=== PATIENT | female | born 1965 | race Caucasian/White ===

== ENCOUNTER 2016-12-09 22:37 | Emergency (ER) | payer OTHER ==
[~2016-12-09] VITALS: Ht 160 cm; Wt 107.9 kg
[~2016-12-09 22:37] MED LIST: ATEN50TA PO; CALCIUM; HYD25 PO; LOSA50TA6 PO; OMEP20CA16 PO; [UNRECOGNIZED DRUG - OTHER]; [UNRECOGNIZED DRUG - OTHER] PO
[2016-12-09 22:44] VITALS: Ht 160 cm; Wt 107.9 kg
[2016-12-10] MEDS ORDERED: hydrALAzine 20 MG INJ IV ONE (00:30)
[2016-12-10 00:57] LABS: BASOPHILS % 0.3 % (0.0-2.0); EOSINOPHILS # 0.1 10^3/ul (0.0-0.5); EOSINOPHILS % 0.5 % (0.0-7.0); HEMATOCRIT 41.1 % (37.0-47.0); HEMOGLOBIN 14.3 g/dl (12.0-16.0); LYMPHOCYTES # 3.3 10^3/ul (0.8-2.9); LYMPHOCYTES % 22.3 % (15.0-51.0); MEAN CORPUSCULAR HEMOGLOBIN 30.8 pg (29.0-33.0); MEAN CORPUSCULAR HGB CONC 34.7 g/dl (32.0-37.0); MEAN PLATELET VOLUME 7.3 fl (7.4-10.4); MONOCYTES % 6.5 % (0.0-11.0); NEUTROPHIL # 10.4 10^3/ul (1.6-7.5); NEUTROPHILS % 70.4 % (39.0-77.0); PLATELET COUNT 373 10^3/UL (140-440); RED BLOOD COUNT 4.62 10^6/ul (4.20-5.40); RED CELL DISTRIBUTION WIDTH 13.6 % (11.5-14.5); UNCORRECTED WBC 14.8 10^3/ul (4.8-10.8); WHITE BLOOD COUNT 14.8 10^3/ul (4.8-10.8)
[2016-12-10 00:59] LABS: CONDITION 1
[2016-12-10 01:05] LABS: INR 1.02; PROTIME 13.4 Sec (12.2-14.2)
[2016-12-10 01:06] LABS: ALBUMIN 3.9 g/dl (3.3-4.9); CHLORIDE 100 mmol/L (97-110); PARTIAL THROMBOPLASTIN TIME 26.6 Sec (25.0-35.0); SODIUM 143 mmol/L (135-144)
[2016-12-10 01:07] LABS: POTASSIUM 3.6 mmol/L (3.5-5.1)
[2016-12-10 01:09] LABS: ALANINE AMINOTRANSFERASE 42 IU/L (13-69); ALBUMIN/GLOBULIN RATIO 1.08; ALKALINE PHOSPHATASE 138 IU/L (42-121); ANION GAP 16 (8-16); ASPARTATE AMINO TRANSFERASE 21 IU/L (15-46); BILIRUBIN,INDIRECT 0.3 mg/dl (0-1.1); BILIRUBIN,TOTAL 0.3 mg/dl (0.2-1.3); BLOOD UREA NITROGEN 15 mg/dl (7-20); CARBON DIOXIDE 31 mmol/L (21-31); CREATININE 0.67 mg/dl (0.44-1.00); GLUCOSE 178 mg/dl (70-220); TOTAL PROTEIN 7.5 g/dl (6.1-8.1)
[2016-12-10 01:17] LABS: B-TYPE NATRIURETIC PEPTIDE 56 PG/ML (0-125)
[2016-12-10 01:25] LABS: TROPONIN-I < 0.012 ng/ml (0.00-0.12)
--- NOTE | 2016-12-10 01:35 | RADRPT ---
PROCEDURE: CHEST - 1 VIEW CLINICAL INDICATION: 51-year-old female with chest pain. TECHNIQUE: A single frontal semi-upright view of the chest was performed. The images were reviewe d on a PACS workstation. COMPARISON: Chest x-ray April 24, 2015. FINDINGS: The cardiomediastinal silhouette is prominent but within normal limits without significant interval change. There is mild elevation right hemidiaphragm. There is no evidence for an infiltrate. Ther e is no evidence for congestive heart failure. There is no evidence for pneumothorax. The osseous st ructures are intact. IMPRESSION: No evidence for active cardiopulmonary disease. .Charlie Berg MD, MD Date Time Electronically viewed and signed by .Charlie Berg MD, MD on 12/10/2016 01:35 .Nitin/
--- NOTE | 2016-12-10 01:48 | ERD ---
ER Documentation Chief Complaint Date/Time DATE: 12/10/16 TIME: 01:47 Chief Complaint Pt has been out of BP meds for 2 weeks. C/O MENEZES, dizziness and blurred visio HPI This is a 51-year-old female who has been on a blood pressure meds for 2 weeks patient with a headache dizziness and blurred vision. Denies any focal neurologic complaints. Denies any chest pain. Denies any other current problems. ROS All systems reviewed and are negative except as per history of present illness. Medications Home Meds Reported Medications [Sutrol Vitamin] No Conflict Check 04/24/15 [Lutea] No Conflict Check, 1 CAP PO DAILY 04/24/15 Hydrochlorothiazide* (Hydrochlorothiazide*) 25 Mg Tab, 25 MG PO DAILY, TAB 04/24/15 Atenolol* (Atenolol*) 50 Mg Tablet, 50 MG PO DAILY, TAB 04/24/15 Losartan Potassium* (Losartan Potassium*) 50 Mg Tablet, 50 MG PO DAILY, TAB 04/24/15 Omeprazole* (Omeprazole*) 20 Mg Capsule.dr, 20 MG PO DAILY, CAP 04/24/15 [Calcium] No Conflict Check 04/24/15 Allergies Allergies: Coded Allergies: Penicillins (Verified Allergy, Mild, 04/24/15) ziprasidone (Verified Allergy, Mild, 04/24/15) PMhx/Soc History of Surgery: Yes (TUBAL LIGATION, GALLBLADDER REMOVAL) Anesthesia Reaction: No Hx Neurological Disorder: No Hx Respiratory Disorders: No Hx Cardiac Disorders: Yes (HTN) Hx Psychiatric Problems: No Hx Miscellaneous Medical Probl: No Hx Alcohol Use: No Hx Substance Use: No Hx Tobacco Use: No Smoking Status: Never smoker Physical Exam Vitals Vital Signs Date Time Temp Pulse Resp B/P Pulse Ox O2 Delivery O2 Flow Rate FiO2 12/10/16 01:40 98.6 95 20 168/91 100 Room Air 12/10/16 00:54 118 16 169/96 100 Room Air 3.0 Nasal Cannula 12/10/16 00:54 Nasal Cannula 3 12/10/16 00:19 171/102 12/10/16 00:14 103 20 100 Room Air 12/09/16 22:44 98.2 103 20 191/130 97 Physical Exam Const: [] Head: Atraumatic Eyes: Normal Conjunctiva ENT: Normal External Ears, Nose and Mouth. Neck: Full range of motion..~ No meningismus. Resp: Clear to auscultation bilaterally Cardio: Regular rate and rhythm, no murmurs Abd: Soft, non tender, non distended. Normal bowel sounds Skin: No petechiae or rashes Back: No midline or flank tenderness Ext: No cyanosis, or edema Neur: Awake and alert Psych: Normal Mood and Affect Result Diagram: 12/10/163812/10/169 Results 24 hrs Laboratory Tests Test 12/10/16 00:39 Activated Partial Thromboplast Time 26.6Sec Alanine Aminotransferase (ALT/SGPT) 42IU/L Albumin 3.9g/dl Albumin/Globulin Ratio 1.08 Alkaline Phosphatase 138IU/L Anion Gap 16 Aspartate Amino Transf (AST/SGOT) 21IU/L B-Type Natriuretic Peptide 56PG/ML Basophils # 0.010^3/ul Basophils % 0.3% Blood Morphology Comment Blood Urea Nitrogen 15mg/dl Calcium Level 9.0mg/dl Carbon Dioxide Level 31mmol/L Chloride Level 100mmol/L Creatinine 0.67mg/dl Direct Bilirubin 0.00mg/dl Eosinophils # 0.110^3/ul Eosinophils % 0.5% Globulin 3.60g/dl Glucose Level 178mg/dl Hematocrit 41.1% Hemoglobin 14.3g/dl INR International Normalized Ratio 1.02 Indirect Bilirubin 0.3mg/dl Lymphocytes # 3.310^3/ul Lymphocytes % 22.3% Mean Corpuscular Hemoglobin 30.8pg Mean Corpuscular Hemoglobin Concent 34.7g/dl Mean Corpuscular Volume 89.0fl Mean Platelet Volume 7.3fl Monocytes # 1.010^3/ul Monocytes % 6.5% Neutrophils # 10.410^3/ul Neutrophils % 70.4% Nucleated Red Blood Cells # 0.010^3/ul Nucleated Red Blood Cells % 0.0/100WBC Platelet Count 11773^3/UL Potassium Level 3.6mmol/L Prothrombin Time 13.4Sec Prothrombin Time Ratio 1.0 Red Blood Count 4.6210^6/ul Red Cell Distribution Width 13.6% Sodium Level 143mmol/L Total Bilirubin 0.3mg/dl Total Protein 7.5g/dl Troponin I < 0.012ng/ml White Blood Count 14.810^3/ul Current Medications Medications (Trade) Dose Ordered Sig/Izaiah Route PRN Reason Start Time Stop Time Status Last Admin Dose Admin Hydralazine HCl (Apresoline) 20 mg ONCE ONCE IV 12/10/16 00:30 12/10/16 00:31 DC 12/10/16 00:35 Procedures/MDM EKG: Rate/Rhythm: Normal Sinus Rhythm QRS, ST, T-waves: No changes consistent w/ acute ischemia Impression: No evidence of ischemia or arrhythmia Chest X-ray 1V Interpreted by me: Soft Tissue: No acute abnormalities Bones: No acute abnormalities Mediastinum/Cardiac Silhouette/Lungs: [No acute abnormalities] Medical decision makin-year-old female with hypertensive urgency. No evidence of endorgan damage. Well-appearing. Blood pressure normalized with hydralazine. Patient will be discharged home to follow-up with PCP. Return for return of symptomatology. Departure Diagnosis: Primary Impression: Hypertension Hypertension type: essential hypertension Qualified Code: I10 - Essential hypertension Condition: Stable MANASA ROMEO Dec 10, 2016 01:48
[2016-12-10] MEDS ORDERED: ATEN50TA PO (01:49)
[2016-12-10] MEDS ORDERED: LOSA50TA6 PO (01:49)
[2016-12-10 02:39] VITALS: BP 147/99; PULSE 89; RESP 21; TEMP 98
== END 2016-12-10 02:40 | disposition home or self-care (01) ==
LOC: E/R 22:37
DX: I10 Essential (primary) hypertension (principal); R40.2142 Coma scale, eyes open, spontaneous, at arrival to emergency department; R40.2252 Coma scale, best verbal response, oriented, at arrival to emergency department; R40.2362 Coma scale, best motor response, obeys commands, at arrival to emergency department
CPT/HCPCS: 36415; 71010; 80053; 83880; 84484; 85025; 85610; 85730; 93005; 96374; J0360; Z7502

== ENCOUNTER 2017-01-15 16:02 | Emergency (ER) | payer SELFPAY ==
[~2017-01-15] VITALS: Ht 157.5 cm; Wt 89.5 kg
[2017-01-15 16:16] VITALS: Ht 157.5 cm; Wt 89.5 kg
== END 2017-01-15 21:50 | disposition left against medical advice (07) ==
LOC: E/R 16:02
DX: Z53.21 Procedure and treatment not carried out due to patient leaving prior to being seen by health care provider (principal)

== ENCOUNTER 2017-07-07 00:19 | Emergency (ER) | payer OTHER ==
[~2017-07-07] VITALS: Ht 147.3 cm; Wt 104.5 kg
[2017-07-07 00:26] VITALS: Ht 147.3 cm; Wt 104.5 kg
[2017-07-07] MEDS ORDERED: morphine 4 MG/ML VIAL IV STA (00:59)
[2017-07-07] MEDS ORDERED: ONDANSETRON 4 MG INJ IV STA (00:59)
[2017-07-07] MEDS ORDERED: hydrALAzine 20 MG INJ IV ONE (01:00)
[2017-07-07 01:30] VITALS: BP 212/119; PULSE 68; RESP 17
[2017-07-07 02:05] LABS: BASOPHIL # 0.1 10^3/ul (0.0-0.1); BASOPHILS % 0.5 % (0.0-2.0); EOSINOPHILS # 0.1 10^3/ul (0.0-0.5); EOSINOPHILS % 1.1 % (0.0-7.0); HEMATOCRIT 40.3 % (37.0-47.0); HEMOGLOBIN 13.8 g/dl (12.0-16.0); LYMPHOCYTES # 2.7 10^3/ul (0.8-2.9); LYMPHOCYTES % 21.4 % (15.0-51.0); MEAN CORPUSCULAR HGB CONC 34.2 g/dl (32.0-37.0); MEAN CORPUSCULAR VOLUME 87.6 fl (82.0-101.0); MEAN PLATELET VOLUME 9.3 fl (7.4-10.4); MONOCYTE # 0.6 10^3/ul (0.3-0.9); MONOCYTES % 4.4 % (0.0-11.0); NEUTROPHILS % 72.2 % (39.0-77.0); PLATELET COUNT 323 10^3/UL (140-415); RED CELL DISTRIBUTION WIDTH 13.2 % (11.5-14.5); WHITE BLOOD COUNT 12.7 10^3/ul (4.8-10.8)
[2017-07-07 02:22] LABS: ADD UMIC NO; UR ASCORBIC ACID NEGATIVE (NEGATIVE); UR BILIRUBIN (Dip) NEGATIVE (NEGATIVE); UR BLOOD (Dip) NEGATIVE (NEGATIVE); UR CLARITY CLEAR (CLEAR); UR COLOR YELLOW (YELLOW); UR GLUCOSE (Dip) NEGATIVE (NEGATIVE); UR KETONES (Dip) NEGATIVE (NEGATIVE); UR LEUKOCYTE ESTERASE (Dip) NEGATIVE Leu/ul (NEGATIVE); UR NITRITE (Dip) NEGATIVE (NEGATIVE); UR SPECIFIC GRAVITY (Dip) 1.014 (1.003-1.030); UR TOTAL PROTEIN (Dip) NEGATIVE (NEGATIVE); UR UROBILINOGEN (Dip) NEGATIVE (NEGATIVE)
[2017-07-07 02:23] LABS: ALANINE AMINOTRANSFERASE 35 IU/L (13-69); ALBUMIN 3.8 g/dl (3.3-4.9); ALBUMIN/GLOBULIN RATIO 1.05; ALKALINE PHOSPHATASE 114 IU/L (42-121); ANION GAP 13 (8-16); ASPARTATE AMINO TRANSFERASE 20 IU/L (15-46); BILIRUBIN,INDIRECT 0.4 mg/dl (0-1.1); BILIRUBIN,TOTAL 0.4 mg/dl (0.2-1.3); BLOOD UREA NITROGEN 17 mg/dl (7-20); CALCIUM 8.8 mg/dl (8.4-10.2); CARBON DIOXIDE 27 mmol/L (21-31); CHLORIDE 106 mmol/L (97-110); CREATININE 0.79 mg/dl (0.44-1.00); GLUCOSE 161 mg/dl (70-220); POTASSIUM 3.7 mmol/L (3.5-5.1); SODIUM 142 mmol/L (135-144); TOTAL PROTEIN 7.4 g/dl (6.1-8.1)
[2017-07-07 02:30] LABS: INR 0.94; PROTIME 12.6 Sec (12.2-14.2)
[2017-07-07 02:35] LABS: TROPONIN-I < 0.012 ng/ml (0.00-0.12)
--- NOTE | 2017-07-07 02:43 | RADRPT ---
PROCEDURE: CT abdomen and pelvis without intravenous contrast. CLINICAL INDICATION: Pain. TECHNIQUE: CT of the abdomen/pelvis was performed utilizing axial images with reconstructions in s agittal and coronal planes. The administered radiation dose is CTDI 23.5 mGy, DLP 1348 mGy-cm. One o r more of the following dose reduction techniques were used: automated exposure control, adjustment of the mA and/or kV according to patient size and/or use of iterative reconstruction technique. COMPARISON: 02/16/2015 FINDINGS: Visualized Chest: The visualized lung bases are clear. Abdomen: The spleen, pancreas, and adrenal glands are unremarkable. The liver is markedly, diffusely decre ased in attenuation, compatible with hepatic steatosis. Prior cholecystectomy is noted. The kidneys are without hydronephrosis. No definite urinary calculi are seen. There is no evidence of bowel obstruction. The appendix is normal. No intra-abdominal free air is seen. There is a small, omentum containing periumbilical hernia. There is no evidence of intra-abdominal adenopathy or free fluid. Pelvis: There is no evidence of pelvic adenopathy. The uterus and ovaries are without enlargement. The uri nary bladder is unremarkable. There is no pelvic free fluid. Osseous structures: Unremarkable. IMPRESSION: No acute findings. Marked hepatic steatosis. Small, omentum containing periumbilical hernia. RPTAT: HIKT .Arpit Chang MD, Date Time Electronically viewed and signed by .Arpit Chang MD, on 07/07/2017 02:43 .T/
--- NOTE | 2017-07-07 02:45 | RADRPT ---
PROCEDURE: XR Chest. CLINICAL INDICATION: Abdominal pain TECHNIQUE: AP Portable chest. COMPARISON: 12/10/2016 FINDINGS: The cardiomediastinal silhouette is normal. The lungs are clear. The osseous structures are unrema rkable. Assuming this is an upright view, there is no free air under the diaphragm. IMPRESSION: No acute findings. RPTAT: HIKT .Arpit Chang MD, MD Date Time Electronically viewed and signed by .Arpit Chang MD, MD on 07/07/2017 02:45 .T/
[2017-07-07] MEDS ORDERED: HYDROmorphONE 1 MG/ML SYG IV STA (03:52)
--- NOTE | 2017-07-07 04:29 | ERD ---
ER Documentation Chief Complaint Date/Time DATE: 07/07/17 TIME: 04:28 Chief Complaint R sided AP x6hrs; no relief w ibuprofen. Denies NVD, no fever. HPI 59 for right-sided abdominal pain for 6 hours. Pain is mild to moderate intensity. No relief with ibuprofen at home. No fever. No nausea no vomiting or diarrhea. No other current complaints. Pain mild to moderate in intensity with no exacerbating or alleviating factors. ROS All systems reviewed and are negative except as per history of present illness. Medications Home Meds Active Scripts Atenolol* (Atenolol*) 50 Mg Tablet, 50 MG PO DAILY for 30 Days, #30 TAB Prov:MANASA ROMEO. 12/10/16 Losartan Potassium* (Losartan Potassium*) 50 Mg Tablet, 50 MG PO DAILY for 30 Days, #30 TAB Prov:MANASA ROMEO S. 12/10/16 Reported Medications [Sutrol Vitamin] No Conflict Check 04/24/15 [Lutea] No Conflict Check, 1 CAP PO DAILY 04/24/15 Hydrochlorothiazide* (Hydrochlorothiazide*) 25 Mg Tab, 25 MG PO DAILY, TAB 04/24/15 Omeprazole* (Omeprazole*) 20 Mg Capsule.dr, 20 MG PO DAILY, CAP 04/24/15 [Calcium] No Conflict Check 04/24/15 Allergies Allergies: Coded Allergies: Penicillins (Verified Allergy, Mild, 04/24/15) ziprasidone (Verified Allergy, Mild, 04/24/15) PMhx/Soc History of Surgery: Yes (TUBAL LIGATION, GALLSTONES REMOVAL) Anesthesia Reaction: No Hx Neurological Disorder: No Hx Respiratory Disorders: No Hx Cardiac Disorders: Yes (HTN) Hx Psychiatric Problems: No Hx Miscellaneous Medical Probl: No Hx Alcohol Use: No Hx Substance Use: No Hx Tobacco Use: No Smoking Status: Never smoker Physical Exam Vitals Vital Signs Date Time Temp Pulse Resp B/P Pulse Ox O2 Delivery O2 Flow Rate FiO2 07/07/17 01:30 68 17 212/119 100 Room Air 07/07/17 00:26 98.1 63 22 229/112 98 Physical Exam Const: [] Head: Atraumatic Eyes: Normal Conjunctiva ENT: Normal External Ears, Nose and Mouth. Neck: Full range of motion..~ No meningismus. Resp: Clear to auscultation bilaterally Cardio: Regular rate and rhythm, no murmurs Abd: Soft, non tender, non distended. Normal bowel sounds Skin: No petechiae or rashes Back: No midline or flank tenderness Ext: No cyanosis, or edema Neur: Awake and alert Psych: Normal Mood and Affect Result Diagram: 07/07/17 0144 07/07/17 0144 Results 24 hrs Laboratory Tests Test 07/07/17 01:25 07/07/17 01:44 Urine Color YELLOW Urine Clarity CLEAR Urine pH 7.0 Urine Specific [place] 1.014 Urine Ketones NEGATIVEmg/dL Urine Nitrite NEGATIVEmg/dL Urine Bilirubin NEGATIVEmg/dL Urine Urobilinogen NEGATIVEmg/dL Urine Leukocyte Esterase NEGATIVELeu/ul Urine Hemoglobin NEGATIVEmg/dL Urine Glucose NEGATIVEmg/dL Urine Total Protein NEGATIVEmg/dl White Blood Count 12.710^3/ul Red Blood Count 4.6010^6/ul Hemoglobin 13.8g/dl Hematocrit 40.3% Mean Corpuscular Volume 87.6fl Mean Corpuscular Hemoglobin 30.0pg Mean Corpuscular Hemoglobin Concent 34.2g/dl Red Cell Distribution Width 13.2% Platelet Count 60385^3/UL Mean Platelet Volume 9.3fl Neutrophils % 72.2% Lymphocytes % 21.4% Monocytes % 4.4% Eosinophils % 1.1% Basophils % 0.5% Nucleated Red Blood Cells % 0.0/100WBC Neutrophils # (Manual) 9.210^3/ul Lymphocytes # 2.710^3/ul Monocytes # 0.610^3/ul Eosinophils # 0.110^3/ul Basophils # 0.110^3/ul Nucleated Red Blood Cells # 0.010^3/ul Prothrombin Time 12.6Sec Prothrombin Time Ratio 1.0 INR International Normalized Ratio 0.94 Activated Partial Thromboplast Time 28.0Sec Sodium Level 142mmol/L Potassium Level 3.7mmol/L Chloride Level 106mmol/L Carbon Dioxide Level 27mmol/L Anion Gap 13 Blood Urea Nitrogen 17mg/dl Creatinine 0.79mg/dl Glucose Level 161mg/dl Calcium Level 8.8mg/dl Total Bilirubin 0.4mg/dl Direct Bilirubin 0.00mg/dl Indirect Bilirubin 0.4mg/dl Aspartate Amino Transf (AST/SGOT) 20IU/L Alanine Aminotransferase (ALT/SGPT) 35IU/L Alkaline Phosphatase 114IU/L Troponin I < 0.012ng/ml Total Protein 7.4g/dl Albumin 3.8g/dl Globulin 3.60g/dl Albumin/Globulin Ratio 1.05 Lipase 129U/L Current Medications Medications (Trade) Dose Ordered Sig/Izaiah Route PRN Reason Start Time Stop Time Status Last Admin Dose Admin Morphine Sulfate (morphine) 4 mg ONCE STAT IV 07/07/17 00:59 07/07/17 01:00 DC 07/07/17 01:56 Ondansetron HCl (Zofran Inj) 4 mg ONCE STAT IV 07/07/17 00:59 07/07/17 01:00 DC 07/07/17 01:56 Hydralazine HCl (Apresoline) 10 mg ONCE ONCE IV 07/07/17 01:00 07/07/17 01:01 DC 07/07/17 01:56 Hydromorphone HCl (Dilaudid) 1 mg ONCE STAT IV 07/07/17 03:52 07/07/17 03:53 DC 07/07/17 04:12 Procedures/MDM Medical decision-makin year female abdominal pain nonspecific and non- differentiated etiology. At this point clinically stable for outpatient management. Pain resolved. Patient be discharged home. Follow-up in 8 hours for serial abdominal exams. Departure Diagnosis: Primary Impression: Abdominal pain Abdominal location: generalized Qualified Code: R10.84 - Generalized abdominal pain Condition: Stable MANASA ROMEO Jul 07, 2017 04:29
[2017-07-07] MEDS ORDERED: SUCR1TAB56 PO (04:36)
[2017-07-07] MEDS ORDERED: HYDR-902 PO (04:36)
== END 2017-07-07 05:51 | disposition home or self-care (01) ==
LOC: E/R 00:19
DX: R10.84 Generalized abdominal pain (principal); R40.2252 Coma scale, best verbal response, oriented, at arrival to emergency department; I10 Essential (primary) hypertension; R40.2142 Coma scale, eyes open, spontaneous, at arrival to emergency department; R40.2362 Coma scale, best motor response, obeys commands, at arrival to emergency department
CPT/HCPCS: 71010; 74176; 80053; 81003; 83690; 84484; 85025; 85610; 85730; 87086; 93005; 96374; 96375; J0360; J1170; J2270; J2405; Z7502

== ENCOUNTER 2019-04-16 17:17 | Inpatient (IN) | payer OTHER ==
[~2019-04-16] VITALS: Ht 152.4 cm; Wt 95.4 kg
[~2019-04-16 17:17] MED LIST changes: -HYD25 PO; +HYDR-3980 PO; +HYDR25TA6 PO; +LOSA50TA14 PO; -LOSA50TA6 PO; +SUCR1TAB56 PO
[2019-04-16] MEDS ORDERED: morphine 4 MG/ML VIAL IV STA ×2 (18:45→22:26)
[2019-04-16] MEDS ORDERED: ONDANSETRON 4 MG INJ IV STA (18:45)
[2019-04-16] MEDS ORDERED: SOD CHLORIDE 0.9% 1,000 ML IV STA (19:43)
[2019-04-16] MEDS ORDERED: INSULIN ASPART [NOVOLOG] 3 ML PEN SC ONE (20:00)
[2019-04-16] MEDS ORDERED: ACCU-CHEK XX ONE (20:00)
[2019-04-16] MEDS ORDERED: AZTREONAM 1 GM/NS (PMX) 50 ML IVPB STA (20:14)
[2019-04-16] MEDS ORDERED: SODIUM CHLORIDE 0.9% 1L BAG IV* STA (20:14)
[2019-04-16] MEDS ORDERED: VANCOMYCIN 1 GM (PMX) 250 ML IVPB STA (20:14)
--- NOTE | 2019-04-16 21:07 | ERD ---
ER Documentation Chief Complaint Chief Complaint AP X3 WEEKS, VOMITED THIS MORNING. STARTED NEW RX YESTERDAY. HPI Patient is a 53-year-old female with hypertension who presents with abdominal pain. She has diffuse abdominal pain which started 3 weeks ago. It initially started in the right upper quadrant but now it is diffuse. She tried ibuprofen for pain. She has no fevers but does have vomiting. Upon review of old medical records the patient has had 10 visits to the ER since 2009. She does not know the name of her primary doctor. ROS All systems reviewed and are negative except as per history of present illness. Medications Home Meds Active Scripts Hydrocodone/Acetaminophen (Lester 10-325 Tablet) 1 Each Tablet, 1 TAB PO Q6H PRN for PAIN, #20 TAB Prov:MANASA ROMEO 07/07/17 Sucralfate* (Carafate*) 1 Gm Tab, 1 GM PO QID, #20 TAB Prov:MANASA ROMEO 07/07/17 Atenolol* (Atenolol*) 50 Mg Tablet, 50 MG PO DAILY for 30 Days, #30 TAB Prov:MANASA ROMEO 12/10/16 Losartan Potassium* (Losartan Potassium*) 50 Mg Tablet, 50 MG PO DAILY for 30 Days, #30 TAB Prov:MANASA ROMEO 12/10/16 Reported Medications [Sutrol Vitamin] No Conflict Check 04/24/15 [Lutea] No Conflict Check, 1 CAP PO DAILY 04/24/15 Hydrochlorothiazide* (Hydrochlorothiazide*) 25 Mg Tab, 25 MG PO DAILY, TAB 04/24/15 Omeprazole* (Omeprazole*) 20 Mg Capsule.dr, 20 MG PO DAILY, CAP 04/24/15 [Calcium] No Conflict Check 04/24/15 Allergies Allergies: Coded Allergies: Penicillins (Verified Allergy, Mild, 04/24/15) ziprasidone (Verified Allergy, Mild, 04/24/15) PMhx/Soc History of Surgery: Yes (TUBAL LIGATION, GALLSTONES REMOVAL) Anesthesia Reaction: No Hx Neurological Disorder: No Hx Respiratory Disorders: No Hx Cardiac Disorders: Yes (HTN) Hx Psychiatric Problems: No Hx Miscellaneous Medical Probl: No Hx Alcohol Use: No Hx Substance Use: No Hx Tobacco Use: No FmHx Family History: diabetes Physical Exam Vitals Vital Signs Date p Pulse Resp B/P (MAP) Pulse Ox O2 O2 Flow FiO2 Time Delivery Rate 04/16/19 98.3 90 16 107/104 97 17:21 (105) Physical Exam Const: Moderate distress Head: Atraumatic Eyes: Normal Conjunctiva ENT: Normal External Ears, Nose and Mouth. Neck: Full range of motion. No meningismus. Resp: Clear to auscultation bilaterally Cardio: Regular rate and rhythm, no murmurs Abd: Diffuse tenderness to palpation without rebound or guarding Skin: Jaundice Back: No midline or flank tenderness Ext: No cyanosis, or edema Neur: Awake and alert Psych: Normal Mood and Affect Result Diagram: 04/16/19190304/16/191903 Results 24 hrs Laboratory Tests Test 04/16/19 19:04 04/16/19 19:58 04/16/19 20:14 04/16/19 20:39 White Blood Count 22.3 10^3/ul Red Blood Count 5.01 10^6/ul Hemoglobin 15.2 g/dl Hematocrit 44.7 % Mean Corpuscular 89.2 fl Volume Mean Corpuscular 30.3 pg Hemoglobin Mean Corpuscular 34.0 g/dl Hemoglobin Concent Red Cell 14.3 % Distribution Width Platelet Count 321 10^3/UL Mean Platelet 9.6 fl Volume Immature 0.700 % Granulocytes % Neutrophils % 92.0 % Lymphocytes % 2.4 % Monocytes % 4.7 % Eosinophils % 0.0 % Basophils % 0.2 % Nucleated Red 0.0 /100WBC Blood Cells % Immature 0.160 10^3/ul Granulocytes # Neutrophils # 20.5 10^3/ul Lymphocytes # 0.5 10^3/ul Monocytes # 1.0 10^3/ul Eosinophils # 0.0 10^3/ul Basophils # 0.1 10^3/ul Nucleated Red 0.0 10^3/ul Blood Cells # Urine Color ANA MARIA Urine Clarity CLEAR Urine pH 5.0 Urine Specific 1.024 [place] Urine Ketones 1+ mg/dL Urine Nitrite NEGATIVE mg/dL Urine Bilirubin NEGATIVE mg/dL Urine Urobilinogen 1+ mg/dL Urine Leukocyte NEGATIVE Ming/ul Esterase Urine Hemoglobin NEGATIVE mg/dL Urine Glucose 3+ mg/dL Urine Total NEGATIVE mg/dl Protein Sodium Level 134 mmol/L Potassium Level 4.2 mmol/L Chloride Level 95 mmol/L Carbon Dioxide 20 mmol/L Level Anion Gap 19 Blood Urea 17 mg/dl Nitrogen Creatinine 0.86 mg/dl Est Glomerular > 60 mL/min Filtrat Rate mL/min Glucose Level 573 mg/dl Calcium Level 9.5 mg/dl Total Bilirubin 7.8 mg/dl Direct Bilirubin 6.40 mg/dl Indirect Bilirubin 1.4 mg/dl Aspartate Amino 711 IU/L Transf (AST/SGOT) Alanine 973 IU/L Aminotransferase ( ALT/SGPT) Alkaline 818 IU/L Phosphatase Total Protein 8.2 g/dl Albumin 4.4 g/dl Globulin 3.80 g/dl Albumin/Globulin 1.15 Ratio Lipase 28503 U/L Lactate 1560 IU/L Dehydrogenase Bedside Glucose 471 mg/dL POC Venous Lactate 1.1 mmol/L Current Medications Medications Dose Sig/Izaiah Start Time Status Last (Trade) Ordered Route PRN Stop Time Admin Dose Reason Admin Morphine 4 mg ONCE STAT 04/16/19 DC 04/16/19 Sulfate IV 18:45 19:03 (morphine) 04/16/19 18:47 Ondansetron 4 mg ONCE STAT 04/16/19 DC 04/16/19 HCl (Zofran IV 18:45 19:03 Inj) 04/16/19 18:47 Insulin 20 unit ONCE ONCE 04/16/19 DC 04/16/19 Aspart SC 20:00 20:18 (Novolog 04/16/19 20:01 Insulin Pen) Diagnostic 1 ea 2 HRS AFTER 04/16/19 DC Test (Pha) HUMALOG ONCE 20:00 (Accu-Chek) XX 04/16/19 20:01 Sodium 1,000 ml @ Q1H STAT 04/16/19 DC 04/16/19 Chloride 1,000 mls/hr IV 19:43 19:57 04/16/19 20:42 Sodium 1,640 ml BOLUS OVER 2 04/16/19 DC 04/16/19 Chloride HOURS STAT 20:14 20:49 (NS) IV* 04/16/19 20:30 Vancomycin 250 ml @ ONCE STAT 04/16/19 HCl 125 mls/hr IVPB 20:14 04/16/19 22:13 Aztreonam 50 ml @ ONCE STAT 04/16/19 DC 04/16/19 100 mls/hr IVPB 20:14 20:48 04/16/19 20:43 Procedures/MDM CT abdomen and pelvis pending radiology read at this time. Patient is a 53-year-old female who presents with abdominal pain and jaundice. She was found to have severe pancreatitis with a lipase of greater than 20,000. Her LFTs are elevated as well. White count is greater than 20. Her initial Kaylin score is 4 giving her a 15% predicted mortality. She has new onset diabetes with a high sugar but no diabetic ketoacidosis at this time. She will be admitted to the intensive care unit to the care of Dr. Tran. Blood cultures and lactic acid were drawn. Initial lactic acid was normal. Broad-spectrum antibiotics with vancomycin and aztreonam were given. At this point I doubt sepsis. Critical Care: Time: 35 minutes excluding all billable procedures. Treatments/Evaluations: Close monitoring and treatment of unstable vital signs, cardiorespiratory, and neurologic status, while maintaining tight balance of fluid, respiratory, and cardiac interventions. Kaylin's Criteria for Pancreatitis Mortality from [employer] on 04/16/2019 All calculations should be rechecked by clinician prior to use RESULT SUMMARY: 4 points Ransons Criteria (On Admission) Severe pancreatitis likely. Consider ICU admission. 4 points Ransons Criteria (Cumulative) 15% predicted mortality. INPUTS: WBC > 16k > 1 = Yes Age > 55 > 0 = No Glucose >200 mg/dL (>10 mmol/L) > 1 = Yes AST > 250 > 1 = Yes LDH > 350 > 1 = Yes Hct drop >10% from admission > 0 = No BUN increase >5 mg/dL (>1.79 mmol/L) from admission > 0 = No Ca > 0 = No Arterial pO2 > 0 = No Base deficit (24 - HCO3) >4 mg/dL within 48 hours > 0 = No Fluid needs > 6L within 48 hours > 0 = No Departure Diagnosis: Primary Impression: Pancreatitis Chronicity: acute Pancreatitis type: unspecified pancreatitis type Acute pancreatitis complication: unspecified Qualified Codes: K85.90 - Acute pancreatitis without necrosis or infection, unspecified Additional Impressions: Elevated liver function tests Cholangitis Abdominal pain Abdominal location: generalized Qualified Codes: R10.84 - Generalized abdominal pain Diabetes mellitus, new onset Condition: Critical LESLIE WEST MD Apr 16, 2019 21:07
[2019-04-16] MEDS ORDERED: ACETAMINOPHEN 650 MG SUPP PR PRN (21:30)
[2019-04-16] MEDS ORDERED: ALBUTEROL/IPRATROPIUM (NEB) 3 ML AMP NEB PRN (21:30)
[2019-04-16] MEDS: ACCU-CHEK XX SCH ×3 (21:30→23:32)
[2019-04-16] MEDS ORDERED: DEXTROSE 50% 50 ML SYRINGE IV PRN ×2 (21:30)
[2019-04-16] MEDS: SOD CHLORIDE 0.9% 1,000 ML IV SCH (22:33)
[2019-04-16] MEDS: INSULIN HUMAN REGULAR 100 UNIT in SOD CHLORIDE 0.9% 99 ML IV SCH (22:56)
[2019-04-16] MEDS ORDERED: CHOL200073 PO (23:20)
[2019-04-16] MEDS ORDERED: IBUP-1542 PO (23:20)
[2019-04-17] VITALS (42 sets, daily range): BP systolic 123–176; BP diastolic 78–120; PULSE 89–114; RESP 10–25; BMI 38.8
[2019-04-17] MEDS: ACCU-CHEK XX SCH ×24 (00:30→23:00)
[2019-04-17] MEDS ORDERED: VANCOMYCIN IV PER PHARMACY XX SCH (02:00)
[2019-04-17] MEDS ORDERED: METOPROLOL 25 MG TAB PO ONE (02:00)
[2019-04-17] MEDS: HYDROmorphONE 1 MG/ML SYG IV PRN ×2 (04:52→10:27)
[2019-04-17] MEDS: SOD CHLORIDE 0.9% 1,000 ML IV SCH ×3 (05:16→16:07)
[2019-04-17] MEDS ORDERED: PANTOPRAZOLE 40 MG INJ IV SCH (06:00)
--- NOTE | 2019-04-17 06:05 | HP ---
Date/Time of Note Date/Time of Note DATE: 04/17/19 TIME: 05:57 Assessment/Plan VTE Prophylaxis Pharmacological prophylaxis: heparin Lines/Catheters IV Catheter Type (from Nrs): Mid Line Assessment/Plan Assessment/Plan 53-year-old female with a history of hypertension and a laparoscopic cholecystectomy in 2014 presented with 3 weeks history of right upper quadrant abdominal pain, vomiting and jaundice secondary to pancreatitis and likely choledocholithiasis and possible cholangitis 1. Severe pancreatitis with likely choledocholithiasis and cholangitis -Broad-spectrum IV antibiotic -IV fluid -Abdominal MRI for further evaluation -GI consult -Hep panel -Autoimmune etiology is also a consideration here. Steroid will be considered for clinical course. Note however that the patient has been taking steroid for " allergy" for the past few days. -Patient had a blood test about a week ago at a clinic. Once patient find out the name and telephone number, will request results of the blood tests for the purpose of comparison 2. Sepsis: Secondary to above -Broad-spectrum IV antibiotic, IV fluid -Follow-up culture results 3. Hyperglycemia -Check A1c -Insulin drip 4. Hypertension: PRN antihypertensives for now Result Diagram: 04/17/19 0429 04/17/19 0049 Results 24hrs Laboratory Tests Test 04/16/19 19:04 04/16/19 19:58 04/16/19 20:14 04/16/19 20:39 White Blood Count 22.3 #H Red Blood Count 5.01 Hemoglobin 15.2 Hematocrit 44.7 Mean Corpuscular 89.2 Volume Mean Corpuscular 30.3 Hemoglobin Mean Corpuscular 34.0 Hemoglobin Concent Red Cell 14.3 Distribution Width Platelet Count 321 Mean Platelet Volume 9.6 Immature 0.700 H Granulocytes % Neutrophils % 92.0 H Lymphocytes % 2.4 L Monocytes % 4.7 Eosinophils % 0.0 Basophils % 0.2 Nucleated Red Blood 0.0 Cells % Immature 0.160 H Granulocytes # Neutrophils # 20.5 H Lymphocytes # 0.5 L Monocytes # 1.0 H Eosinophils # 0.0 Basophils # 0.1 Nucleated Red Blood 0.0 Cells # Urine Color ANA MARIA Urine Clarity CLEAR Urine pH 5.0 Urine Specific 1.024 [place] Urine Ketones 1+ H Urine Nitrite NEGATIVE Urine Bilirubin NEGATIVE Urine Urobilinogen 1+ H Urine Leukocyte NEGATIVE Esterase Urine Hemoglobin NEGATIVE Urine Glucose 3+ H Urine Total Protein NEGATIVE Sodium Level 134 L Potassium Level 4.2 Chloride Level 95 L Carbon Dioxide Level 20 L Anion Gap 19 H Blood Urea Nitrogen 17 Creatinine 0.86 Est Glomerular > 60 Filtrat Rate mL/min Glucose Level 573 *H Calcium Level 9.5 Total Bilirubin 7.8 H Direct Bilirubin 6.40 H Indirect Bilirubin 1.4 H Aspartate Amino 711 H Transf (AST/SGOT) Alanine 973 H Aminotransferase (AL T/SGPT) Alkaline Phosphatase 818 H Total Protein 8.2 H Albumin 4.4 Globulin 3.80 H Albumin/Globulin 1.15 Ratio Lipase 34205 H Lactate 1560 H Dehydrogenase Bedside Glucose 471 *H POC Venous Lactate 1.1 Test 04/16/19 21:39 04/16/19 22:30 04/16/19 22:34 04/16/19 23:31 Bedside Glucose 432 *H 452 *H 366 H Lactic Acid Level 1.8 Test 04/17/19 00:37 04/17/19 00:49 04/17/19 01:42 04/17/19 02:29 Bedside Glucose 335 H 315 H 331 H White Blood Count 21.7 H Red Blood Count 4.57 Hemoglobin 14.1 Hematocrit 40.5 Mean Corpuscular 88.6 Volume Mean Corpuscular 30.9 Hemoglobin Mean Corpuscular 34.8 Hemoglobin Concent Red Cell 14.5 Distribution Width Platelet Count 285 Mean Platelet Volume 9.4 Immature 0.600 H Granulocytes % Neutrophils % 89.6 H Lymphocytes % 4.6 L Monocytes % 5.0 Eosinophils % 0.0 Basophils % 0.2 Nucleated Red Blood 0.0 Cells % Immature 0.120 H Granulocytes # Neutrophils # 19.4 H Lymphocytes # 1.0 Monocytes # 1.1 H Eosinophils # 0.0 Basophils # 0.1 Nucleated Red Blood 0.0 Cells # Sodium Level 141 Potassium Level 3.7 Chloride Level 104 Carbon Dioxide Level 20 L Anion Gap 17 H Blood Urea Nitrogen 15 Creatinine 0.68 Est Glomerular > 60 Filtrat Rate mL/min Glucose Level 382 #H Lactic Acid Level 2.2 *H Calcium Level 8.3 L Total Bilirubin 7.7 H Direct Bilirubin 6.40 H Indirect Bilirubin 1.3 H Aspartate Amino 722 H Transf (AST/SGOT) Alanine 883 H Aminotransferase (AL T/SGPT) Alkaline Phosphatase 759 H Total Protein 7.1 # Albumin 3.7 Globulin 3.40 H Albumin/Globulin 1.08 Ratio Test 04/17/19 02:33 04/17/19 03:28 04/17/19 03:30 04/17/19 04:29 Bedside Glucose 320 H 371 H 344 H White Blood Count 23.6 H Red Blood Count 4.38 Hemoglobin 13.4 Hematocrit 38.8 Mean Corpuscular 88.6 Volume Mean Corpuscular 30.6 Hemoglobin Mean Corpuscular 34.5 Hemoglobin Concent Red Cell 14.7 H Distribution Width Platelet Count 289 Mean Platelet Volume 9.6 Immature 0.800 H Granulocytes % Neutrophils % 90.1 H Lymphocytes % 4.2 L Monocytes % 4.8 Eosinophils % 0.0 Basophils % 0.1 Nucleated Red Blood 0.0 Cells % Immature 0.190 H Granulocytes # Neutrophils # 21.3 H Lymphocytes # 1.0 Monocytes # 1.1 H Eosinophils # 0.0 Basophils # 0.0 Nucleated Red Blood 0.0 Cells # Prothrombin Time 13.1 Prothrombin Time 1.0 Ratio INR International 0.98 Normalized Ratio Activated 27.1 Partial Thromboplast Time Hemoglobin A1c 8.8 H Test 04/17/19 04:36 04/17/19 05:41 Bedside Glucose 312 H 302 H HPI/ROS Admit Date/Time Admit Date/Time Apr 16, 2019 at 20:18 Hx of Present Illness This is a 53-year-old female with a history of hypertension, allergy and laparoscopic cholecystectomy in 2014 who presented to the ER complaining of abdominal pain. Pain is been going on for the past 3 weeks or so. She also reported nonbloody nonbilious vomiting and jaundice. Denied shortness of breath, chest pain, but reported fever/chills. Patient actually so Dr. rhoades ago for her " for allergy" and was started on oral steroid. She said her allergy is usually related to skin rash. She said she did not tell the doctor about her abdominal pain at that time. She did however had blood tests and is awaiting the results. When she presented to the ER, she was found to have a WBC of 22,000, abnormal LFTs with AST and ALT in the 800s and 900s respectively. Alk phos around 800, total bilirubin 7.8 with direct bilirubin of 6.4. Lipase around 20,000. Glucose almost 600 with no DKA. Lactic dehydrogenase almost 1600. CT abdomen/pelvis shows the followin. Severe pancreatitis with interval enlargement of the pancreatic gland and extensive peripancreatic fat stranding, with stranding extending into the proximal mesentery. 2. Hepatomegaly with fatty infiltration. 3. Postoperative changes from prior cholecystectomy with the extrahepatic common bile duct within normal limits status post cholecystectomy PMH/Family/Social Past Medical History Medical History: other (see hpi) Medications Current Medications Sodium Chloride 1,000 ml @ 125 mls/hr Q8H IV Last administered on 04/16/19at 22:33; Admin Dose 125 MLS/HR; Start 04/16/19 at 21:16 Albuterol/ Ipratropium (Duoneb) 3 ml Q2H RESP THERAPY PRN NEB SHORTNESS OF BREATH; Start 04/16/19 at 21:30 Acetaminophen (Tylenol Supp) 650 mg Q4H PRN [place] PAIN LEVEL 1-3 OR FEVER; Start 04/16/19 at 21:30 Heparin Sodium (Porcine) (Heparin (5000 Units/1ml)) 5,000 unit Q12 SC ; Start 04/17/19 at 09:00 Diagnostic Test (Pha) (Accu-Chek) 1 ea Q1H XX Last administered on 04/16/19at 23:32; Admin Dose 1 EA; Start 04/16/19 at 21:30 Insulin Human Regular 100 unit/ Sodium Chloride 100 ml @ 0 mls/hr PER PROTOCOL IV Last administered on 04/16/19at 22:56; Admin Dose 6 MLS/HR; Start 04/16/19 at 21:30 Miscellaneous Information (* Miscellaneous Pharmacy Order) Treatment of Hypoglycemia: 1.BG 51... Per protocol XX ; Start 04/16/19 at 21:30 Dextrose (D50w Syringe) 25 ml Q15M PRN IV .DECREASED GLUCOSE; Start 04/16/19 at 21:30 Dextrose (D50w Syringe) 50 ml Q15M PRN IV .DECREASED GLUCOSE; Start 04/16/19 at 21:30 Famotidine (Pepcid Iv) 20 mg Q12 IV ; Start 04/17/19 at 09:00 Hydromorphone HCl (Dilaudid) 1 mg Q3H PRN IV pain Last administered on 04/17/19at 04:52; Admin Dose 1 MG; Start 04/16/19 at 22:30 Aztreonam 2 gm/ Sodium Chloride 100 ml @ 100 mls/hr Q12 IVPB ; Start 04/17/19 at 09:00 Vancomycin HCl (Vanco Iv Per Pharmacy) VANCOMYCIN PER PHARMACY PER PROTOCOL XX ; Start 04/17/19 at 02:00 Vancomycin HCl 1.25 gm/Sodium Chloride 250 ml @ 83.333 mls/ hr Q12H IVPB ; Start 04/17/19 at 10:00 Miscellaneous Information (*Rx Drug Level Order Reminder*) VANCOMYCIN TROUGH LEVEL 2100 ONCE XX ; Start 04/18/19 at 21:00; Stop 04/18/19 at 21:01 Coded Allergies: Penicillins (Unverified Allergy, Mild, 04/16/19) ziprasidone (Unverified Allergy, Mild, 04/16/19) Past Surgical History Past Surgical Hx: other (see hpi) Family History Significant Family History: no pertinent family hx Social History Alcohol Use: none Smoking Status: Never smoker Drug Use: none Exam/Review of Systems Vital Signs Vitals Vital Signs Date Temp Pulse Resp B/P (MAP) Pulse Ox O2 O2 Flow FiO2 Time Delivery Rate 04/17/19 104 19 130/87 92 05:30 (101) 04/17/19 Room Air 05:00 04/17/19 99.5 04:00 Intake and Output 04/16/19 04/16/19 04/17/19 1515:00 23:00 07:00 IntakeIntake Total 2690 ml 1202 ml OutputOutput Total 401 ml BalanceBalance 2690 ml 801 ml Exam Constitutional: other (no acute distress) Head: normocephalic, atraumatic Eyes: EOMI, PERRL Respiratory: clear to auscultation, normal air movement Cardiovascular: nl pulses Gastrointestinal: soft Extremities: normal pulses MANASA BOWMAN MD Apr 17, 2019 06:05
[2019-04-17] MEDS: FAMOTIDINE 20 MG INJ IV SCH ×2 (08:52→20:23)
[2019-04-17] MEDS: HEPARIN 5,000 UNIT/1 ML VIAL SC SCH ×2 (08:54→20:28)
[2019-04-17] MEDS ORDERED: AZTREONAM 2 GM in SOD CHLORIDE 0.9% 100 ML IVPB SCH (09:00)
[2019-04-17] MEDS: VANCOMYCIN HCL 1.25 GM in SOD CHLORIDE 0.9% 250 ML IVPB SCH ×2 (10:02→21:34)
--- NOTE | 2019-04-17 10:03 | CONS ---
Assessment/Plan Assessment/Plan Hospital Course (Demo Recall) Summary Assessment and Plan: Assessment: Severe pancreatitis -Triglycerides within normal limits Elevated LFTs with elevated direct hyperbilirubinemia -We will out choledocholithiasis versus other -Hepatitis serology for hepatitis B/C is negative Sepsis DM with hyperglycemia currently on insulin drip Hypertension History of cholecystectomy Plan: Strict n.p.o. Hyperhydration Pain management as needed MRCP Monitor labs Auto-immune work-up pending Patient seen in collaboration with Dr. Carr Consultation Date/Type/Reason Admit Date/Time Apr 16, 2019 at 20:18 Date of Consultation: Apr 17, 2019 Type of Consult GI Reason for Consultation Severe pancreatitis Elevated LFTs with direct hyperbilirubinemia Choledocholithiasis Date/Time of Note DATE: 04/17/19 TIME: 09:21 Hx of Present Illness This is a 53-year-old female with past medical history of hypertension, history of cholecystectomy. She has been complaining of upper abdominal pain for the past 3 weeks associated with non-bloody nonbilious emesis and jaundice. She presented to the ED for further evaluation here after work-up patient was diagnosed with with severe pancreatitis. With direct hyperbilirubinemia and severely elevated LFTs. CT A/P revealed severe pancreatitis with hepatomegaly and fatty infiltration. Postop operative changes from prior cholecystectomy with the extrahepatic common bile duct within normal limits status post cholecystectomy. Given elevation in LFTs pathology serology was obtained and is negative for hepatitis B and hepatitis C. She is currently in the ICU with hyperhydration she is n.p.o. on antibiotic therapy as well as pain management as needed. T-max since admission has been 99.5 patient with slightly tachycardia in the low 100s and stable blood pressure GIs been consulted for further evaluation. At time of evaluation patient resting in bed she continues to complain of upper abdominal pain she notes that right upper quadrant pain is 4 out of 10 in left upper quadrant pain is 7-8 out of 10 currently. Regarding order for an MRCP which is currently pending. Recommend to continue strict n.p.o. status hyperhydration and pain management as indicated. Conditions based on clinical course Review of Systems: A 12 system, review was conducted and is negative except as noted in the HPI or here. Past Medical History Home Meds Active Scripts Hydrocodone/Acetaminophen ([place] 10-325 Tablet) 1 Each Tablet, 1 TAB PO Q6H PRN for PAIN, #20 TAB Prov:MANASA ROMEO S. 07/07/17 Sucralfate* (Carafate*) 1 Gm Tab, 1 GM PO QID, #20 TAB Prov:MANASA ROMEO S. 07/07/17 Atenolol* (Atenolol*) 50 Mg Tablet, 50 MG PO DAILY for 30 Days, #30 TAB Prov:MANASA ROMEO S. 12/10/16 Losartan Potassium* (Losartan Potassium*) 50 Mg Tablet, 50 MG PO DAILY for 30 Days, #30 TAB Prov:MANASA ROMEO S. 12/10/16 Reported Medications Cholecalciferol (Vitamin D3) (VITAMIN D-3) 2,000 Unit Capsule, 2000 UNIT PO DAILY for 90 Days, #90 TAKE 1 CAPSULE BY MOUTH EVERY DAY 04/16/19 Ibuprofen* (Ibuprofen*) 600 Mg Tablet, 600 MG PO Q8H PRN for PAIN LEVEL 6-10 TAKE 1 TABLET BY ORAL ROUTE EVERY 8 HOURS WITH FOOD NEEDED FOR PAIN. 04/16/19 Hydrochlorothiazide* (Hydrochlorothiazide*) 25 Mg Tab, 25 MG PO DAILY, TAB 04/24/15 Omeprazole* (Omeprazole*) 20 Mg Capsule.dr, 20 MG PO DAILY, CAP 04/24/15 Discontinued Reported Medications [Sutrol Vitamin] No Conflict Check 04/24/15 [Lutea] No Conflict Check, 1 CAP PO DAILY 04/24/15 [Calcium] No Conflict Check 04/24/15 Medications Current Medications Sodium Chloride 1,000 ml @ 125 mls/hr Q8H IV Last administered on 04/17/19at 07:11; Admin Dose 125 MLS/HR; Start 04/16/19 at 21:16 Albuterol/ Ipratropium (Duoneb) 3 ml Q2H RESP THERAPY PRN NEB SHORTNESS OF BREATH; Start 04/16/19 at 21:30 Acetaminophen (Tylenol Supp) 650 mg Q4H PRN RI PAIN LEVEL 1-3 OR FEVER; Start 04/16/19 at 21:30 Heparin Sodium (Porcine) (Heparin (5000 Units/1ml)) 5,000 unit Q12 SC Last administered on 04/17/19at 08:54; Admin Dose 5,000 UNIT; Start 04/17/19 at 09:00 Diagnostic Test (Pha) (Accu-Chek) 1 ea Q1H XX Last administered on 04/17/19at 08:47; Admin Dose 1 EA; Start 04/16/19 at 21:30 Insulin Human Regular 100 unit/ Sodium Chloride 100 ml @ 0 mls/hr PER PROTOCOL IV Last administered on 04/16/19at 22:56; Admin Dose 6 MLS/HR; Start 04/16/19 at 21:30 Miscellaneous Information (* Miscellaneous Pharmacy Order) Treatment of Hypogl ycemia: 1.BG 51... Per protocol XX ; Start 04/16/19 at 21:30 Dextrose (D50w Syringe) 25 ml Q15M PRN IV .DECREASED GLUCOSE; Start 04/16/19 at 21:30 Dextrose (D50w Syringe) 50 ml Q15M PRN IV .DECREASED GLUCOSE; Start 04/16/19 at 21:30 Famotidine (Pepcid Iv) 20 mg Q12 IV Last administered on 04/17/19at 08:52; Admin Dose 20 MG; Start 04/17/19 at 09:00 Hydromorphone HCl (Dilaudid) 1 mg Q3H PRN IV pain Last administered on 04/17/19at 04:52; Admin Dose 1 MG; Start 04/16/19 at 22:30 Vancomycin HCl (Vanco Iv Per Pharmacy) VANCOMYCIN PER PHARMACY PER PROTOCOL XX ; Start 04/17/19 at 02:00 Vancomycin HCl 1.25 gm/Sodium Chloride 250 ml @ 83.333 mls/ hr Q12H IVPB ; Start 04/17/19 at 10:00 Miscellaneous Information (*Rx Drug Level Order Reminder*) VANCOMYCIN TROUGH LEVEL 2100 ONCE XX ; Start 04/18/19 at 21:00; Stop 04/18/19 at 21:01 Meropenem/Sodium Chloride 50 ml @ 100 mls/hr Q12 IVPB ; Start 04/17/19 at 21:00 Allergies: Coded Allergies: Penicillins (Unverified Allergy, Mild, 04/16/19) ziprasidone (Unverified Allergy, Mild, 04/16/19) Social History Smoking Status: Never smoker Exam/Review of Systems Exam Vitals Vital Signs Date Temp Pulse Resp B/P (MAP) Pulse Ox O2 O2 Flow FiO2 Time Delivery Rate 04/17/19 95 22 130/82 92 Room Air 09:00 (98) 04/17/19 98.7 08:00 Intake and Output 04/16/19 04/16/19 04/17/19 1515:00 23:00 07:00 IntakeIntake Total 2690 ml 1351 ml OutputOutput Total 401 ml BalanceBalance 2690 ml 950 ml Exam PHYSICAL EXAMINATION: GENERAL: Well developed, well nourished, alert & oriented x 3, obese SKIN: No lesions HEAD: Normocephalic, atraumatic, no tenderness. EYES: Pupils equal reactive to light and accommodation, no discharge. EARS/NOSE AND THROAT: Ears normal, nose normal. NECK: Supple, no masses. CHEST: Inspection within normal limits. CARDIOVASCULAR: Heart: Regular rate and rhythm RESPIRATORY: Lungs clear to auscultation GASTROINTESTINAL AND LIVER: Abdomen: Soft, RUQ pain 4/10, LUQ 8/10, non- distended, no hernias, no masses, no organomegaly, no ascites, no guarding, no rebound tenderness, normoactive bowel sounds. Rectal: Deferred. Results Result Diagram: 04/17/19 0429 04/17/19 0429 Results 24hrs Laboratory Tests Test 04/16/19 19:04 04/16/19 19:58 04/16/19 20:14 04/16/19 20:39 White Blood Count 22.3 #H Red Blood Count 5.01 Hemoglobin 15.2 Hematocrit 44.7 Mean Corpuscular 89.2 Volume Mean Corpuscular 30.3 Hemoglobin Mean Corpuscular 34.0 Hemoglobin Concent Red Cell 14.3 Distribution Width Platelet Count 321 Mean Platelet Volume 9.6 Immature 0.700 H Granulocytes % Neutrophils % 92.0 H Lymphocytes % 2.4 L Monocytes % 4.7 Eosinophils % 0.0 Basophils % 0.2 Nucleated Red Blood 0.0 Cells % Immature 0.160 H Granulocytes # Neutrophils # 20.5 H Lymphocytes # 0.5 L Monocytes # 1.0 H Eosinophils # 0.0 Basophils # 0.1 Nucleated Red Blood 0.0 Cells # Urine Color ANA MARIA Urine Clarity CLEAR Urine pH 5.0 Urine Specific 1.024 [place] Urine Ketones 1+ H Urine Nitrite NEGATIVE Urine Bilirubin NEGATIVE Urine Urobilinogen 1+ H Urine Leukocyte NEGATIVE Esterase Urine Hemoglobin NEGATIVE Urine Glucose 3+ H Urine Total Protein NEGATIVE Sodium Level 134 L Potassium Level 4.2 Chloride Level 95 L Carbon Dioxide Level 20 L Anion Gap 19 H Blood Urea Nitrogen 17 Creatinine 0.86 Est Glomerular > 60 Filtrat Rate mL/min Glucose Level 573 *H Calcium Level 9.5 Total Bilirubin 7.8 H Direct Bilirubin 6.40 H Indirect Bilirubin 1.4 H Aspartate Amino 711 H Transf (AST/SGOT) Alanine 973 H Aminotransferase (AL T/SGPT) Alkaline Phosphatase 818 H Total Protein 8.2 H Albumin 4.4 Globulin 3.80 H Albumin/Globulin 1.15 Ratio Lipase 42306 H Lactate 1560 H Dehydrogenase Bedside Glucose 471 *H POC Venous Lactate 1.1 Test 04/16/19 21:39 04/16/19 22:30 04/16/19 22:34 04/16/19 23:31 Bedside Glucose 432 *H 452 *H 366 H Lactic Acid Level 1.8 Test 04/17/19 00:37 04/17/19 00:49 04/17/19 01:42 04/17/19 02:29 Bedside Glucose 335 H 315 H 331 H White Blood Count 21.7 H Red Blood Count 4.57 Hemoglobin 14.1 Hematocrit 40.5 Mean Corpuscular 88.6 Volume Mean Corpuscular 30.9 Hemoglobin Mean Corpuscular 34.8 Hemoglobin Concent Red Cell 14.5 Distribution Width Platelet Count 285 Mean Platelet Volume 9.4 Immature 0.600 H Granulocytes % Neutrophils % 89.6 H Lymphocytes % 4.6 L Monocytes % 5.0 Eosinophils % 0.0 Basophils % 0.2 Nucleated Red Blood 0.0 Cells % Immature 0.120 H Granulocytes # Neutrophils # 19.4 H Lymphocytes # 1.0 Monocytes # 1.1 H Eosinophils # 0.0 Basophils # 0.1 Nucleated Red Blood 0.0 Cells # Sodium Level 141 Potassium Level 3.7 Chloride Level 104 Carbon Dioxide Level 20 L Anion Gap 17 H Blood Urea Nitrogen 15 Creatinine 0.68 Est Glomerular > 60 Filtrat Rate mL/min Glucose Level 382 #H Lactic Acid Level 2.2 *H Calcium Level 8.3 L Total Bilirubin 7.7 H Direct Bilirubin 6.40 H Indirect Bilirubin 1.3 H Aspartate Amino 722 H Transf (AST/SGOT) Alanine 883 H Aminotransferase (AL T/SGPT) Alkaline Phosphatase 759 H Total Protein 7.1 # Albumin 3.7 Globulin 3.40 H Albumin/Globulin 1.08 Ratio Test 04/17/19 02:33 04/17/19 03:28 04/17/19 03:30 04/17/19 04:29 Bedside Glucose 320 H 371 H 344 H White Blood Count 23.6 H Red Blood Count 4.38 Hemoglobin 13.4 Hematocrit 38.8 Mean Corpuscular 88.6 Volume Mean Corpuscular 30.6 Hemoglobin Mean Corpuscular 34.5 Hemoglobin Concent Red Cell 14.7 H Distribution Width Platelet Count 289 Mean Platelet Volume 9.6 Immature 0.800 H Granulocytes % Neutrophils % 90.1 H Lymphocytes % 4.2 L Monocytes % 4.8 Eosinophils % 0.0 Basophils % 0.1 Nucleated Red Blood 0.0 Cells % Immature 0.190 H Granulocytes # Neutrophils # 21.3 H Lymphocytes # 1.0 Monocytes # 1.1 H Eosinophils # 0.0 Basophils # 0.0 Nucleated Red Blood 0.0 Cells # Prothrombin Time 13.1 Prothrombin Time 1.0 Ratio INR International 0.98 Normalized Ratio Activated 27.1 Partial Thromboplast Time Sodium Level 142 Potassium Level 3.5 Chloride Level 107 Carbon Dioxide Level 20 L Anion Gap 15 H Blood Urea Nitrogen 13 Creatinine 0.58 Est Glomerular > 60 Filtrat Rate mL/min Glucose Level 339 H Hemoglobin A1c 8.8 H Lactic Acid Level 1.2 Calcium Level 8.2 L Magnesium Level 1.8 Total Bilirubin 7.7 H Direct Bilirubin 6.40 H Indirect Bilirubin 1.3 H Aspartate Amino 734 H Transf (AST/SGOT) Alanine 858 H Aminotransferase (AL T/SGPT) Alkaline Phosphatase 702 H Total Protein 6.6 Albumin 3.5 Globulin 3.10 Albumin/Globulin 1.12 Ratio Triglycerides Level 118 Cholesterol Level 384 H LDL Cholesterol, 313 Calculated HDL Cholesterol 47 Cholesterol/HDL 8.1 Ratio Lipase 39166 H Thyroid Stimulating 0.356 L Hormone (TSH) Test 04/17/19 04:36 04/17/19 05:41 04/17/19 06:32 04/17/19 07:00 Bedside Glucose 312 H 302 H 344 H Hepatitis B Surface NEGATIVE Antigen Hepatitis B Surface NEGATIVE Antibody Hepatitis B Core NEGATIVE Total Antibody Hepatitis C Antibody NEGATIVE Test 04/17/19 07:04 04/17/19 07:24 04/17/19 08:31 Bedside Glucose 306 H 282 H 176 Medications Medication Current Medications Sodium Chloride 1,000 ml @ 125 mls/hr Q8H IV Last administered on 04/17/19at 07:11; Admin Dose 125 MLS/HR; Start 04/16/19 at 21:16 Albuterol/ Ipratropium (Duoneb) 3 ml Q2H RESP THERAPY PRN NEB SHORTNESS OF BREATH; Start 04/16/19 at 21:30 Acetaminophen (Tylenol Supp) 650 mg Q4H PRN RI PAIN LEVEL 1-3 OR FEVER; Start 04/16/19 at 21:30 Heparin Sodium (Porcine) (Heparin (5000 Units/1ml)) 5,000 unit Q12 SC Last administered on 04/17/19at 08:54; Admin Dose 5,000 UNIT; Start 04/17/19 at 09:00 Diagnostic Test (Pha) (Accu-Chek) 1 ea Q1H XX Last administered on 04/17/19 08:47; Admin Dose 1 EA; Start 04/16/19 at 21:30 Insulin Human Regular 100 unit/ Sodium Chloride 100 ml @ 0 mls/hr PER PROTOCOL IV Last administered on 04/16/19at 22:56; Admin Dose 6 MLS/HR; Start 04/16/19 at 21:30 Miscellaneous Information (* Miscellaneous Pharmacy Order) Treatment of Hypoglycemia: 1.BG 51... Per protocol XX ; Start 04/16/19 at 21:30 Dextrose (D50w Syringe) 25 ml Q15M PRN IV .DECREASED GLUCOSE; Start 04/16/19 at 21:30 Dextrose (D50w Syringe) 50 ml Q15M PRN IV .DECREASED GLUCOSE; Start 04/16/19 at 21:30 Famotidine (Pepcid Iv) 20 mg Q12 IV Last administered on 04/17/19at 08:52; Admin Dose 20 MG; Start 04/17/19 at 09:00 Hydromorphone HCl (Dilaudid) 1 mg Q3H PRN IV pain Last administered on 04/17/19 04:52; Admin Dose 1 MG; Start 04/16/19 at 22:30 Vancomycin HCl (Vanco Iv Per Pharmacy) VANCOMYCIN PER PHARMACY PER PROTOCOL XX ; Start 04/17/19 at 02:00 Vancomycin HCl 1.25 gm/Sodium Chloride 250 ml @ 83.333 mls/ hr Q12H IVPB ; Start 04/17/19 at 10:00 Miscellaneous Information (*Rx Drug Level Order Reminder*) VANCOMYCIN TROUGH LEVEL 2100 ONCE XX ; Start 04/18/19 at 21:00; Stop 04/18/19 at 21:01 Meropenem/Sodium Chloride 50 ml @ 100 mls/hr Q12 IVPB ; Start 04/17/19 at 21:00 RIAN BIRD Apr 17, 2019 10:02
--- NOTE | 2019-04-17 11:25 | CONS ---
DATE OF ADMISSION: 04/16/2019 DATE OF CONSULTATION: 04/17/2019 TYPE OF CONSULTATION: Infectious disease consultation. REASON FOR CONSULTATION: Antibiotic management. HISTORY OF PRESENT ILLNESS: Mari Canseco is a 53-year-old female with a number of problems includin g hypertension, who presents with abdominal pain. She has had diffuse abdominal pain which started 3 weeks ago that started in the right upper quadrant, but now is diffuse. She tried ibuprofen for stevan n. She has no fever but does have vomiting. PAST MEDICAL HISTORY: 1. Status post tubal ligation. 2. Status post gallstone removal. FAMILY HISTORY: Not contributory except for diabetes. SOCIAL HISTORY: She does not smoke, drink or abuse drugs. MEDICATIONS: Per chart. REVIEW OF SYSTEMS: Noncontributory. PHYSICAL EXAMINATION: GENERAL: The patient is a well-developed, well-nourished female who presents in moderate distress. VITAL SIGNS: Stable. She is afebrile. SKIN: Without generalized rash. She appears to be jaundiced. HEENT: Within normal limits. NECK: Supple. LYMPH NODES: None palpable. CHEST: Decreased breath sounds at the bases. HEART: Without murmur or gallop. ABDOMEN: Soft. She has diffuse tenderness to palpation with no rebound or guarding. EXTREMITIES: Without cyanosis, clubbing, or edema. RECTAL AND GENITAL: Deferred. NEUROLOGIC: No focal neurological abnormality. HOSPITAL COURSE: Her white count is 22.3, H and H of 15.2 and 44.7, platelet count 321,000. BUN and creatinine 17/0.86 and her glucose is markedly elevated at 573. White count was 22.3 as noted with 92% neutrophils. Her bilirubin was 7.8, direct bilirubin 6.4. Her AST 711, ALT 973, alkaline phosph atase 818. She has lipase of 20,393. LDH of 1560. ALLERGIES: PATIENT IS ALLERGIC TO PENICILLIN and ZIPRASIDONE. She was started on vancomycin and aztreonam. CT scan of the abdomen and pelvis shows severe pancreat itis with interval enlargement of the pancreatic gland and extensive peripancreatic fat stranding wit h stranding extending into the proximal mesentery, hepatomegaly with fatty infiltration. Postoperati ve changes from prior cholecystectomy with extrahepatic common bile duct within normal limits. Statu s post cholecystectomy. IMPRESSION AND PLAN: The patient has severe pancreatitis. Today, she has likely choledocholithiasis and cholangitis. She is on broad spectrum IV antibiotics. She is to get a GI consult, autoimmune e tiology is also a consideration. She has been taking steroids for allergy over the past few days. S he is septic secondary to pancreatitis and probably cholangitis. White count today is 23.6 as noted. We may want to switch aztreonam to meropenem. I will dictate my findings to the hospitalist. Bloo d cultures are pending. Urine cultures are pending. Dictated By: BJORN JOSEPH MD, JD/JOVANI Conf#: [id number] DID#: [id number]
--- NOTE | 2019-04-17 12:54 | PN ---
Date/Time of Note Date/Time of Note DATE: 04/17/19 TIME: 12:40 Assessment/Plan VTE Prophylaxis SCD applied (from Nsg): No SCD contraindicated: other Pharmacological prophylaxis: heparin Lines/Catheters IV Catheter Type (from Nrsg): Mid Line Assessment/Plan Hospital Course S: Patient still on insulin drip with better control of her blood sugars. Awaiting MRCP. Seen by GI and ID teams earlier. Still on aggressive IV fluid hydration, pain somewhat controlled with IV Dilaudid. O: VS- see below PE: Gen: lying in bed, mild-moderate distress Head: Atraumatic Eyes: Normal Conjunctiva ENT: Normal External Ears, Nose and Mouth. Neck: Full range of motion. No meningismus. Resp: Clear to auscultation bilaterally Cardio: Regular rate and rhythm, no murmurs Abd: still + Diffuse tenderness to palpation without rebound or guarding Skin: Jaundice Neuro: No focal deficits Assessment/Plan: 53-year-old female with a history of hypertension and a laparoscopic cholecystectomy in 2014 presented with 3 weeks history of right upper quadrant abdominal pain, vomiting and jaundice secondary to pancreatitis and likely choledocholithiasis and possible cholangitis. Note however that the patient has been taking steroid for " allergy" for the past few days. 1. Severe pancreatitis - with likely choledocholithiasis and cholangitis. LFTs including AST, ALT, direct and total bilirubins are significant elevated. -Broad-spectrum IV antibiotics to continue per ID recommendation -Continue aggressive IV fluid -Follow-up results of MRCP for further evaluation -Follow further recommendations from GI consult -Hep panel, continue to trend LFTs -Autoimmune etiology is also a consideration here. Steroid will be considered for clinical course. -Patient had a blood test about a week ago at a clinic. Once patient find out the name and telephone number, will request results of the blood tests for the purpose of comparison 2. Sepsis: Secondary to above -Again, continue broad-spectrum IV antibiotic, IV fluid -Follow-up culture results 3. Hyperglycemia-patient came in with a sugar of 600, mild anion gap elevation and mild low CO2, likely secondary to mild DKA, has recovered well since that time. A1c checked here and is 8.8. Again patient had no known prior history of diabetes before this admission. -Given sepsis picture with possible cholangitis and choledocholithiasis for now continue to keep sugars in a better controlled state with IV insulin drip for now 4. Hypertension: Stable -Monitor, continue PRN antihypertensives for now Critical care time spent in patient care today equals 50 minutes. Result Diagram: 04/17/1942804/17/19428 Results 24hrs Laboratory Tests Test 04/16/19 19:04 04/16/19 19:58 04/16/19 20:14 04/16/19 20:39 White Blood Count 22.3 #H Red Blood Count 5.01 Hemoglobin 15.2 Hematocrit 44.7 Mean Corpuscular 89.2 Volume Mean Corpuscular 30.3 Hemoglobin Mean Corpuscular 34.0 Hemoglobin Concent Red Cell 14.3 Distribution Width Platelet Count 321 Mean Platelet Volume 9.6 Immature 0.700 H Granulocytes % Neutrophils % 92.0 H Lymphocytes % 2.4 L Monocytes % 4.7 Eosinophils % 0.0 Basophils % 0.2 Nucleated Red Blood 0.0 Cells % Immature 0.160 H Granulocytes # Neutrophils # 20.5 H Lymphocytes # 0.5 L Monocytes # 1.0 H Eosinophils # 0.0 Basophils # 0.1 Nucleated Red Blood 0.0 Cells # Urine Color ANA MARIA Urine Clarity CLEAR Urine pH 5.0 Urine Specific 1.024 [place] Urine Ketones 1+ H Urine Nitrite NEGATIVE Urine Bilirubin NEGATIVE Urine Urobilinogen 1+ H Urine Leukocyte NEGATIVE Esterase Urine Hemoglobin NEGATIVE Urine Glucose 3+ H Urine Total Protein NEGATIVE Sodium Level 134 L Potassium Level 4.2 Chloride Level 95 L Carbon Dioxide Level 20 L Anion Gap 19 H Blood Urea Nitrogen 17 Creatinine 0.86 Est Glomerular > 60 Filtrat Rate mL/min Glucose Level 573 *H Calcium Level 9.5 Total Bilirubin 7.8 H Direct Bilirubin 6.40 H Indirect Bilirubin 1.4 H Aspartate Amino 711 H Transf (AST/SGOT) Alanine 973 H Aminotransferase (AL T/SGPT) Alkaline Phosphatase 818 H Total Protein 8.2 H Albumin 4.4 Globulin 3.80 H Albumin/Globulin 1.15 Ratio Lipase 41917 H Lactate 1560 H Dehydrogenase Bedside Glucose 471 *H POC Venous Lactate 1.1 Test 04/16/19 21:39 04/16/19 22:30 04/16/19 22:34 04/16/19 23:31 Bedside Glucose 432 *H 452 *H 366 H Lactic Acid Level 1.8 Test 04/17/19 00:37 04/17/19 00:49 04/17/19 01:42 04/17/19 02:29 Bedside Glucose 335 H 315 H 331 H White Blood Count 21.7 H Red Blood Count 4.57 Hemoglobin 14.1 Hematocrit 40.5 Mean Corpuscular 88.6 Volume Mean Corpuscular 30.9 Hemoglobin Mean Corpuscular 34.8 Hemoglobin Concent Red Cell 14.5 Distribution Width Platelet Count 285 Mean Platelet Volume 9.4 Immature 0.600 H Granulocytes % Neutrophils % 89.6 H Lymphocytes % 4.6 L Monocytes % 5.0 Eosinophils % 0.0 Basophils % 0.2 Nucleated Red Blood 0.0 Cells % Immature 0.120 H Granulocytes # Neutrophils # 19.4 H Lymphocytes # 1.0 Monocytes # 1.1 H Eosinophils # 0.0 Basophils # 0.1 Nucleated Red Blood 0.0 Cells # Sodium Level 141 Potassium Level 3.7 Chloride Level 104 Carbon Dioxide Level 20 L Anion Gap 17 H Blood Urea Nitrogen 15 Creatinine 0.68 Est Glomerular > 60 Filtrat Rate mL/min Glucose Level 382 #H Lactic Acid Level 2.2 *H Calcium Level 8.3 L Total Bilirubin 7.7 H Direct Bilirubin 6.40 H Indirect Bilirubin 1.3 H Aspartate Amino 722 H Transf (AST/SGOT) Alanine 883 H Aminotransferase (AL T/SGPT) Alkaline Phosphatase 759 H Total Protein 7.1 # Albumin 3.7 Globulin 3.40 H Albumin/Globulin 1.08 Ratio Test 04/17/19 02:33 04/17/19 03:28 04/17/19 03:30 04/17/19 04:29 Bedside Glucose 320 H 371 H 344 H White Blood Count 23.6 H Red Blood Count 4.38 Hemoglobin 13.4 Hematocrit 38.8 Mean Corpuscular 88.6 Volume Mean Corpuscular 30.6 Hemoglobin Mean Corpuscular 34.5 Hemoglobin Concent Red Cell 14.7 H Distribution Width Platelet Count 289 Mean Platelet Volume 9.6 Immature 0.800 H Granulocytes % Neutrophils % 90.1 H Lymphocytes % 4.2 L Monocytes % 4.8 Eosinophils % 0.0 Basophils % 0.1 Nucleated Red Blood 0.0 Cells % Immature 0.190 H Granulocytes # Neutrophils # 21.3 H Lymphocytes # 1.0 Monocytes # 1.1 H Eosinophils # 0.0 Basophils # 0.0 Nucleated Red Blood 0.0 Cells # Prothrombin Time 13.1 Prothrombin Time 1.0 Ratio INR International 0.98 Normalized Ratio Activated 27.1 Partial Thromboplast Time Sodium Level 142 Potassium Level 3.5 Chloride Level 107 Carbon Dioxide Level 20 L Anion Gap 15 H Blood Urea Nitrogen 13 Creatinine 0.58 Est Glomerular > 60 Filtrat Rate mL/min Glucose Level 339 H Hemoglobin A1c 8.8 H Lactic Acid Level 1.2 Calcium Level 8.2 L Magnesium Level 1.8 Total Bilirubin 7.7 H Direct Bilirubin 6.40 H Indirect Bilirubin 1.3 H Aspartate Amino 734 H Transf (AST/SGOT) Alanine 858 H Aminotransferase (AL T/SGPT) Alkaline Phosphatase 702 H Total Protein 6.6 Albumin 3.5 Globulin 3.10 Albumin/Globulin 1.12 Ratio Triglycerides Level 118 Cholesterol Level 384 H LDL Cholesterol, 313 Calculated HDL Cholesterol 47 Cholesterol/HDL 8.1 Ratio Lipase 69944 H Thyroid Stimulating 0.356 L Hormone (TSH) Test 04/17/19 04:36 04/17/19 05:41 04/17/19 06:32 04/17/19 07:00 Bedside Glucose 312 H 302 H 344 H Hepatitis B Surface NEGATIVE Antigen Hepatitis B Surface NEGATIVE Antibody Hepatitis B Core NEGATIVE Total Antibody Hepatitis C Antibody NEGATIVE Test 04/17/19 07:04 04/17/19 07:24 04/17/19 08:31 04/17/19 09:32 Bedside Glucose 306 H 282 H 176 138 Test 04/17/19 10:30 04/17/19 11:30 04/17/19 12:29 Bedside Glucose 145 156 152 Exam/Review of Systems Exam Vitals Vital Signs Date Temp Pulse Resp B/P (MAP) Pulse Ox O2 O2 Flow FiO2 Time Delivery Rate 04/17/19 103 24 141/96 93 Room Air 10:00 (111) 04/17/19 98.7 08:00 Intake and Output 04/16/19 04/16/19 04/17/19 1515:00 23:00 07:00 IntakeIntake Total 2690 ml 1351 ml OutputOutput Total 401 ml BalanceBalance 2690 ml 950 ml Results Results 24hrs Laboratory Tests Test 04/16/19 19:04 04/16/19 19:58 04/16/19 20:14 04/16/19 20:39 White Blood Count 22.3 #H Red Blood Count 5.01 Hemoglobin 15.2 Hematocrit 44.7 Mean Corpuscular 89.2 Volume Mean Corpuscular 30.3 Hemoglobin Mean Corpuscular 34.0 Hemoglobin Concent Red Cell 14.3 Distribution Width Platelet Count 321 Mean Platelet Volume 9.6 Immature 0.700 H Granulocytes % Neutrophils % 92.0 H Lymphocytes % 2.4 L Monocytes % 4.7 Eosinophils % 0.0 Basophils % 0.2 Nucleated Red Blood 0.0 Cells % Immature 0.160 H Granulocytes # Neutrophils # 20.5 H Lymphocytes # 0.5 L Monocytes # 1.0 H Eosinophils # 0.0 Basophils # 0.1 Nucleated Red Blood 0.0 Cells # Urine Color ANA MARIA Urine Clarity CLEAR Urine pH 5.0 Urine Specific 1.024 [place] Urine Ketones 1+ H Urine Nitrite NEGATIVE Urine Bilirubin NEGATIVE Urine Urobilinogen 1+ H Urine Leukocyte NEGATIVE Esterase Urine Hemoglobin NEGATIVE Urine Glucose 3+ H Urine Total Protein NEGATIVE Sodium Level 134 L Potassium Level 4.2 Chloride Level 95 L Carbon Dioxide Level 20 L Anion Gap 19 H Blood Urea Nitrogen 17 Creatinine 0.86 Est Glomerular > 60 Filtrat Rate mL/min Glucose Level 573 *H Calcium Level 9.5 Total Bilirubin 7.8 H Direct Bilirubin 6.40 H Indirect Bilirubin 1.4 H Aspartate Amino 711 H Transf (AST/SGOT) Alanine 973 H Aminotransferase (AL T/SGPT) Alkaline Phosphatase 818 H Total Protein 8.2 H Albumin 4.4 Globulin 3.80 H Albumin/Globulin 1.15 Ratio Lipase 04526 H Lactate 1560 H Dehydrogenase Bedside Glucose 471 *H POC Venous Lactate 1.1 Test 04/16/19 21:39 04/16/19 22:30 04/16/19 22:34 04/16/19 23:31 Bedside Glucose 432 *H 452 *H 366 H Lactic Acid Level 1.8 Test 04/17/19 00:37 04/17/19 00:49 04/17/19 01:42 04/17/19 02:29 Bedside Glucose 335 H 315 H 331 H White Blood Count 21.7 H Red Blood Count 4.57 Hemoglobin 14.1 Hematocrit 40.5 Mean Corpuscular 88.6 Volume Mean Corpuscular 30.9 Hemoglobin Mean Corpuscular 34.8 Hemoglobin Concent Red Cell 14.5 Distribution Width Platelet Count 285 Mean Platelet Volume 9.4 Immature 0.600 H Granulocytes % Neutrophils % 89.6 H Lymphocytes % 4.6 L Monocytes % 5.0 Eosinophils % 0.0 Basophils % 0.2 Nucleated Red Blood 0.0 Cells % Immature 0.120 H Granulocytes # Neutrophils # 19.4 H Lymphocytes # 1.0 Monocytes # 1.1 H Eosinophils # 0.0 Basophils # 0.1 Nucleated Red Blood 0.0 Cells # Sodium Level 141 Potassium Level 3.7 Chloride Level 104 Carbon Dioxide Level 20 L Anion Gap 17 H Blood Urea Nitrogen 15 Creatinine 0.68 Est Glomerular > 60 Filtrat Rate mL/min Glucose Level 382 #H Lactic Acid Level 2.2 *H Calcium Level 8.3 L Total Bilirubin 7.7 H Direct Bilirubin 6.40 H Indirect Bilirubin 1.3 H Aspartate Amino 722 H Transf (AST/SGOT) Alanine 883 H Aminotransferase (AL T/SGPT) Alkaline Phosphatase 759 H Total Protein 7.1 # Albumin 3.7 Globulin 3.40 H Albumin/Globulin 1.08 Ratio Test 04/17/19 02:33 04/17/19 03:28 04/17/19 03:30 04/17/19 04:29 Bedside Glucose 320 H 371 H 344 H White Blood Count 23.6 H Red Blood Count 4.38 Hemoglobin 13.4 Hematocrit 38.8 Mean Corpuscular 88.6 Volume Mean Corpuscular 30.6 Hemoglobin Mean Corpuscular 34.5 Hemoglobin Concent Red Cell 14.7 H Distribution Width Platelet Count 289 Mean Platelet Volume 9.6 Immature 0.800 H Granulocytes % Neutrophils % 90.1 H Lymphocytes % 4.2 L Monocytes % 4.8 Eosinophils % 0.0 Basophils % 0.1 Nucleated Red Blood 0.0 Cells % Immature 0.190 H Granulocytes # Neutrophils # 21.3 H Lymphocytes # 1.0 Monocytes # 1.1 H Eosinophils # 0.0 Basophils # 0.0 Nucleated Red Blood 0.0 Cells # Prothrombin Time 13.1 Prothrombin Time 1.0 Ratio INR International 0.98 Normalized Ratio Activated 27.1 Partial Thromboplast Time Sodium Level 142 Potassium Level 3.5 Chloride Level 107 Carbon Dioxide Level 20 L Anion Gap 15 H Blood Urea Nitrogen 13 Creatinine 0.58 Est Glomerular > 60 Filtrat Rate mL/min Glucose Level 339 H Hemoglobin A1c 8.8 H Lactic Acid Level 1.2 Calcium Level 8.2 L Magnesium Level 1.8 Total Bilirubin 7.7 H Direct Bilirubin 6.40 H Indirect Bilirubin 1.3 H Aspartate Amino 734 H Transf (AST/SGOT) Alanine 858 H Aminotransferase (AL T/SGPT) Alkaline Phosphatase 702 H Total Protein 6.6 Albumin 3.5 Globulin 3.10 Albumin/Globulin 1.12 Ratio Triglycerides Level 118 Cholesterol Level 384 H LDL Cholesterol, 313 Calculated HDL Cholesterol 47 Cholesterol/HDL 8.1 Ratio Lipase 31970 H Thyroid Stimulating 0.356 L Hormone (TSH) Test 04/17/19 04:36 04/17/19 05:41 04/17/19 06:32 04/17/19 07:00 Bedside Glucose 312 H 302 H 344 H Hepatitis B Surface NEGATIVE Antigen Hepatitis B Surface NEGATIVE Antibody Hepatitis B Core NEGATIVE Total Antibody Hepatitis C Antibody NEGATIVE Test 04/17/19 07:04 04/17/19 07:24 04/17/19 08:31 04/17/19 09:32 Bedside Glucose 306 H 282 H 176 138 Test 04/17/19 10:30 04/17/19 11:30 04/17/19 12:29 Bedside Glucose 145 156 152 Medications Medication Current Medications Sodium Chloride 1,000 ml @ 125 mls/hr Q8H IV Last administered on 04/17/19at 07:11; Admin Dose 125 MLS/HR; Start 04/16/19 at 21:16 Albuterol/ Ipratropium (Duoneb) 3 ml Q2H RESP THERAPY PRN NEB SHORTNESS OF BREATH; Start 04/16/19 at 21:30 Acetaminophen (Tylenol Supp) 650 mg Q4H PRN [place] PAIN LEVEL 1-3 OR FEVER; Start 04/16/19 at 21:30 Heparin Sodium (Porcine) (Heparin (5000 Units/1ml)) 5,000 unit Q12 SC Last administered on 04/17/19at 08:54; Admin Dose 5,000 UNIT; Start 04/17/19 at 09:00 Diagnostic Test (Pha) (Accu-Chek) 1 ea Q1H XX Last administered on 04/17/19at 10:00; Admin Dose 1 EA; Start 04/16/19 at 21:30 Insulin Human Regular 100 unit/ Sodium Chloride 100 ml @ 0 mls/hr PER PROTOCOL IV Last administered on 04/16/19at 22:56; Admin Dose 6 MLS/HR; Start 04/16/19 at 21:30 Miscellaneous Information (* Miscellaneous Pharmacy Order) Treatment of Hypoglycemia: 1.BG 51... Per protocol XX ; Start 04/16/19 at 21:30 Dextrose (D50w Syringe) 25 ml Q15M PRN IV .DECREASED GLUCOSE; Start 04/16/19 at 21:30 Dextrose (D50w Syringe) 50 ml Q15M PRN IV .DECREASED GLUCOSE; Start 04/16/19 at 21:30 Famotidine (Pepcid Iv) 20 mg Q12 IV Last administered on 04/17/19at 08:52; Admin Dose 20 MG; Start 04/17/19 at 09:00 Hydromorphone HCl (Dilaudid) 1 mg Q3H PRN IV pain Last administered on 04/17/19at 10:27; Admin Dose 1 MG; Start 04/16/19 at 22:30 Vancomycin HCl (Vanco Iv Per Pharmacy) VANCOMYCIN PER PHARMACY PER PROTOCOL XX ; Start 04/17/19 at 02:00 Vancomycin HCl 1.25 gm/Sodium Chloride 250 ml @ 83.333 mls/ hr Q12H IVPB Last administered on 04/17/19at 10:02; Admin Dose 83.333 MLS/HR; Start 04/17/19 at 10:00 Miscellaneous Information (*Rx Drug Level Order Reminder*) VANCOMYCIN TROUGH LEVEL 2100 ONCE XX ; Start 04/18/19 at 21:00; Stop 04/18/19 at 21:01 Meropenem/Sodium Chloride 50 ml @ 100 mls/hr Q12 IVPB ; Start 04/17/19 at 21:00 BRYAN ADAIR Apr 17, 2019 12:54
[2019-04-17] MEDS: INSULIN HUMAN REGULAR 100 UNIT in SOD CHLORIDE 0.9% 99 ML IV SCH ×2 (15:15→19:10)
[2019-04-17] MEDS: HYDROmorphONE 2 MG/ML SYG IV PRN ×2 (15:47→23:58)
[2019-04-17] MEDS: MEROPENEM 1 GM/50ML(PMX) 50 ML IVPB SCH (20:23)
[2019-04-18] VITALS (51 sets, daily range): BP systolic 132–192; BP diastolic 77–140; PULSE 91–117; RESP 13–33
[2019-04-18] MEDS: SOD CHLORIDE 0.9% 1,000 ML IV SCH ×3 (00:04→15:13)
[2019-04-18] MEDS: ACCU-CHEK XX SCH ×24 (01:00→23:00)
[2019-04-18] MEDS ORDERED: LABETALOL HCL 20MG INJ IV ONE (01:30)
[2019-04-18] MEDS: POTASSIUM CHLORIDE 100 ML IVPB SCH ×3 (06:01→10:24)
--- NOTE | 2019-04-18 09:19 | PN ---
Date/Time of Note Date/Time of Note DATE: 04/18/19 TIME: 09:18 Assessment/Plan VTE Prophylaxis Risk score (from Ns)>0 risk: 1 [place] [facility] [place]CD contraindicated: other Pharmacological prophylaxis: heparin Lines/Catheters IV Catheter Type ([facility]): Peripheral IV Assessment/Plan Hospital Course S: Patient still on insulin drip, sugars well controlled. MRCP results revi ewed. Patient asking for some water, still complaining of some mild abdominal pain symptoms but improved since yesterday, more awake and alert. O: VS- see below PE: Gen: lying in bed, a bit more awake and alert today Head: Atraumatic Eyes: Normal Conjunctiva ENT: Normal External Ears, Nose and Mouth. Neck: Full range of motion. No meningismus. Resp: Clear to auscultation bilaterally Cardio: Regular rate and rhythm, no murmurs Abd: still + tenderness to palpation without rebound or guarding Skin: Jaundice Neuro: No focal deficits Assessment/Plan: 53-year-old female with a history of hypertension and a laparoscopic cholecystectomy in 2014 presented with 3 weeks history of right upper quadrant abdominal pain, vomiting and jaundice secondary to pancreatitis and likely choledocholithiasis and possible cholangitis. Note however that the patient has been taking steroid for " allergy" for the past few days. 1. Severe pancreatitis - with likely choledocholithiasis and cholangitis. LFTs including AST, ALT, direct and total bilirubins are significant elevated. -Broad-spectrum IV antibiotics to continue per ID recommendation -Continue aggressive IV fluid -MRCP results reviewed, follow-up further GI recommendations regarding any possible ERCPs -Follow-up results hep panel, continue to trend LFTs -Autoimmune etiology is also a consideration here. Steroid will be considered for clinical course. -Patient had a blood test about a week ago at a clinic. Once patient find out the name and telephone number, will request results of the blood tests for the purpose of comparison 2. Sepsis: Secondary to above, overall improving -Again, continue broad-spectrum IV antibiotic, IV fluid -Follow-up culture results 3. Hyperglycemia-sugars improved now on insulin drip. Patient came in with a sugar of 600, mild anion gap elevation and mild low CO2, likely secondary to mild DKA, has recovered well since that time. A1c checked here and is 8.8. Again patient had no known prior history of diabetes before this admission. -Given sepsis picture with possible cholangitis and choledocholithiasis for now continue to keep sugars in a better controlled state with IV insulin drip for now 4. Hypertension: Stable -Monitor, continue PRN antihypertensives for now Critical care time spent in patient care today equals 45 minutes. Result Diagram: 04/18/19 0423 04/18/19 0423 Results 24hrs Laboratory Tests Test 04/17/19 09:32 04/17/19 10:30 04/17/19 11:30 04/17/19 12:29 Bedside Glucose 138 145 156 152 Test 04/17/19 13:28 04/17/19 13:49 04/17/19 15:02 04/17/19 16:01 Bedside Glucose 132 143 148 Lactic Acid Level 0.9 Test 04/17/19 17:06 04/17/19 18:57 04/17/19 18:59 04/17/19 20:16 Bedside Glucose 143 129 131 Lactic Acid Level 0.8 Test 04/17/19 21:23 04/17/19 22:06 04/18/19 00:06 04/18/19 01:05 Bedside Glucose 116 124 127 Lactic Acid Level 0.7 Test 04/18/19 01:58 04/18/19 04:23 04/18/19 04:31 04/18/19 06:04 Bedside Glucose 125 116 130 White Blood Count 21.6 H Red Blood Count 3.83 L Hemoglobin 11.6 L Hematocrit 34.3 L Mean Corpuscular 89.6 Volume Mean Corpuscular 30.3 Hemoglobin Mean Corpuscular 33.8 Hemoglobin Concent Red Cell 15.3 H Distribution Width Platelet Count 257 Mean Platelet Volume 9.5 Immature 1.500 H Granulocytes % Neutrophils % 84.9 H Lymphocytes % 8.5 L Monocytes % 5.0 Eosinophils % 0.0 Basophils % 0.1 Nucleated Red Blood 0.0 Cells % Immature 0.320 H Granulocytes # Neutrophils # 18.3 H Lymphocytes # 1.8 Monocytes # 1.1 H Eosinophils # 0.0 Basophils # 0.0 Nucleated Red Blood 0.0 Cells # Sodium Level 142 Potassium Level 2.9 *L Chloride Level 109 Carbon Dioxide Level 25 Anion Gap 8 Blood Urea Nitrogen 13 Creatinine 0.53 Est Glomerular > 60 Filtrat Rate mL/min Glucose Level 122 # Calcium Level 7.6 L Phosphorus Level 2.1 L Magnesium Level 2.0 Total Bilirubin 1.9 #H Direct Bilirubin 0.00 # Indirect Bilirubin 1.9 H Aspartate Amino 299 H Transf (AST/SGOT) Alanine 631 H Aminotransferase (AL T/SGPT) Alkaline Phosphatase 588 H Total Protein 6.6 Albumin 3.2 L Lipase 748 H Test 04/18/19 06:40 04/18/19 08:01 04/18/19 09:01 Lactic Acid Level 1.2 Bedside Glucose 146 143 Exam/Review of Systems Exam Vitals Vital Signs Date Temp Pulse Resp B/P (MAP) Pulse Ox O2 O2 Flow FiO2 Time Delivery Rate 04/18/19 104 22 165/94 100 Room Air 08:30 (117) 04/18/19 98.8 08:00 04/18/19 2.0 06:00 Intake and Output 04/17/19 04/17/19 04/18/19 1515:00 23:00 07:00 IntakeIntake Total 1337 ml 1197.993 ml 1197.007 ml OutputOutput Total 1 ml 0 ml BalanceBalance 1336 ml 1197.993 ml 1197.007 ml Results Results 24hrs Laboratory Tests Test 04/17/19 09:32 04/17/19 10:30 04/17/19 11:30 04/17/19 12:29 Bedside Glucose 138 145 156 152 Test 04/17/19 13:28 04/17/19 13:49 04/17/19 15:02 04/17/19 16:01 Bedside Glucose 132 143 148 Lactic Acid Level 0.9 Test 04/17/19 17:06 04/17/19 18:57 04/17/19 18:59 04/17/19 20:16 Bedside Glucose 143 129 131 Lactic Acid Level 0.8 Test 04/17/19 21:23 04/17/19 22:06 04/18/19 00:06 04/18/19 01:05 Bedside Glucose 116 124 127 Lactic Acid Level 0.7 Test 04/18/19 01:58 04/18/19 04:23 04/18/19 04:31 04/18/19 06:04 Bedside Glucose 125 116 130 White Blood Count 21.6 H Red Blood Count 3.83 L Hemoglobin 11.6 L Hematocrit 34.3 L Mean Corpuscular 89.6 Volume Mean Corpuscular 30.3 Hemoglobin Mean Corpuscular 33.8 Hemoglobin Concent Red Cell 15.3 H Distribution Width Platelet Count 257 Mean Platelet Volume 9.5 Immature 1.500 H Granulocytes % Neutrophils % 84.9 H Lymphocytes % 8.5 L Monocytes % 5.0 Eosinophils % 0.0 Basophils % 0.1 Nucleated Red Blood 0.0 Cells % Immature 0.320 H Granulocytes # Neutrophils # 18.3 H Lymphocytes # 1.8 Monocytes # 1.1 H Eosinophils # 0.0 Basophils # 0.0 Nucleated Red Blood 0.0 Cells # Sodium Level 142 Potassium Level 2.9 *L Chloride Level 109 Carbon Dioxide Level 25 Anion Gap 8 Blood Urea Nitrogen 13 Creatinine 0.53 Est Glomerular > 60 Filtrat Rate mL/min Glucose Level 122 # Calcium Level 7.6 L Phosphorus Level 2.1 L Magnesium Level 2.0 Total Bilirubin 1.9 #H Direct Bilirubin 0.00 # Indirect Bilirubin 1.9 H Aspartate Amino 299 H Transf (AST/SGOT) Alanine 631 H Aminotransferase (AL T/SGPT) Alkaline Phosphatase 588 H Total Protein 6.6 Albumin 3.2 L Lipase 748 H Test 04/18/19 06:40 04/18/19 08:01 04/18/19 09:01 Lactic Acid Level 1.2 Bedside Glucose 146 143 Medications Medication Current Medications Sodium Chloride 1,000 ml @ 125 mls/hr Q8H IV Last administered on 04/18/19at 07:46; Admin Dose 125 MLS/HR; Start 04/16/19 at 21:16 Albuterol/ Ipratropium (Duoneb) 3 ml Q2H RESP THERAPY PRN NEB SHORTNESS OF BREATH; Start 04/16/19 at 21:30 Acetaminophen (Tylenol Supp) 650 mg Q4H PRN [place] PAIN LEVEL 1-3 OR FEVER; Start 04/16/19 at 21:30 Heparin Sodium (Porcine) (Heparin (5000 Units/1ml)) 5,000 unit Q12 SC Last administered on 04/17/19at 20:28; Admin Dose 5,000 UNIT; Start 04/17/19 at 09:00 Insulin Human Regular 100 unit/ Sodium Chloride 100 ml @ 0 mls/hr PER PROTOCOL IV Last administered on 04/17/19at 19:10; Admin Dose 3 MLS/HR; Start 04/16/19 at 21:30 Miscellaneous Information (* Miscellaneous Pharmacy Order) Treatment of Hypoglycemia: 1.BG 51... Per protocol XX ; Start 04/16/19 at 21:30 Dextrose (D50w Syringe) 25 ml Q15M PRN IV .DECREASED GLUCOSE; Start 04/16/19 at 21:30 Dextrose (D50w Syringe) 50 ml Q15M PRN IV .DECREASED GLUCOSE; Start 04/16/19 at 21:30 Famotidine (Pepcid Iv) 20 mg Q12 IV Last administered on 04/17/19at 20:23; Admin Dose 20 MG; Start 04/17/19 at 09:00 Vancomycin HCl (Vanco Iv Per Pharmacy) VANCOMYCIN PER PHARMACY PER PROTOCOL XX ; Start 04/17/19 at 02:00 Vancomycin HCl 1.25 gm/Sodium Chloride 250 ml @ 83.333 mls/ hr Q12H IVPB Last administered on 04/17/19at 21:34; Admin Dose 83.333 MLS/HR; Start 04/17/19 at 10:00 Miscellaneous Information (*Rx Drug Level Order Reminder*) VANCOMYCIN TROUGH LEVEL 2100 ONCE XX ; Start 04/18/19 at 21:00; Stop 04/18/19 at 21:01 Meropenem/Sodium Chloride 50 ml @ 100 mls/hr Q12 IVPB Last administered on 04/17/19at 20:23; Admin Dose 100 MLS/HR; Start 04/17/19 at 21:00 Hydromorphone HCl (Dilaudid) 1.5 mg Q3H PRN IV PAIN Last administered on 04/17/19at 23:58; Admin Dose 1.5 MG; Start 04/17/19 at 13:00 Diagnostic Test (Pha) (Accu-Chek) 1 ea Q1H XX Last administered on 04/18/19at 08:07; Admin Dose 1 EA; Start 04/17/19 at 16:00 Potassium Chloride 100 ml @ 50 mls/hr Q2H IVPB Last administered on 04/18/19at 08:04; Admin Dose 50 MLS/HR; Start 04/18/19 at 06:00; Stop 04/18/19 at 11:59 Potassium Phosphate 20 meq/ Sodium Chloride 254.5455 ml @ 63.636 m... ONCE ONCE IVPB ; Start 04/18/19 at 10:00; Stop 04/18/19 at 13:59 Hydralazine HCl (Apresoline) 10 mg Q4H PRN IV ELEVATED BLOOD PRESSURE; Start 04/18/19 at 09:30 BRYAN ADAIR Apr 18, 2019 09:19
[2019-04-18] MEDS ORDERED: POTASSIUM PHOSPHATE 20 MEQ in SOD CHLORIDE 0.9% 250 ML IVPB ONE (10:00)
[2019-04-18] MEDS: MEROPENEM 1 GM/50ML(PMX) 50 ML IVPB SCH ×2 (10:17→20:07)
[2019-04-18] MEDS: FAMOTIDINE 20 MG INJ IV SCH ×2 (10:17→20:07)
[2019-04-18] MEDS: HEPARIN 5,000 UNIT/1 ML VIAL SC SCH ×2 (10:22→20:08)
[2019-04-18] MEDS: HYDROmorphONE 2 MG/ML SYG IV PRN ×3 (10:46→20:07)
[2019-04-18] MEDS: VANCOMYCIN HCL 1.25 GM in SOD CHLORIDE 0.9% 250 ML IVPB SCH ×2 (11:36→22:18)
--- NOTE | 2019-04-18 11:50 | CONS ---
Assessment/Plan Assessment/Plan Hospital Course (Demo Recall) ID PROGRESS NOTE CURRENT ABX: DAY # => Vanco IV + Merrem 04/18/1942204/[id number] 24H INTERVAL SUMMARY * Awake, alert, ambulatory to [facility] -- SR/ST, Oxygen 2LPM via nasal canula- Pt remains NPO, no BM. Still on insulin drip alg 3 * MICRO: 04/16/19 BCx (-); 04/17/19 (-)MRSA nares DIAGNOSTIC IMAGING * 04/17/19 ABD MRI: IMPRESSION:1. Findings consistent with mild to moderate acute pancreatitis, as above. No loculated peripancreatic fluid collection is identified.2. Status post cholecystectomy. A small gallstone is present within the cystic duct remnant.3. No biliary dilatation or evidence of choledocholithiasis. 4. Hepatomegaly. * 04/16/19 CT ABD-PEL: IMPRESSION:1. Severe pancreatitis with interval enlargement of the pancreatic gland and extensive peripancreatic fat stranding, with stranding extending into the proximal mesentery.2. Hepatomegaly with fatty infiltration. 3. Postoperative changes from prior cholecystectomy with the extrahepatic common bile duct within normal limits status post cholecystectomy PHYSICAL EXAMINATION: GENERAL: Awake, alert, responsive HEENT: AT, NC -- no thrush NECK: Supple, CHEST: Rise symmetrical without dyspnea on O2 via NC HEART: Pulse RRR ABDOMEN: Tender EXTREMITIES: Warm, dry, ambulatory in room SKIN: No rash, no diaphoresis ID ASSESSMENT 53 yo F admit with: 1. Sepsis Severe, w/fevers, leukocytosis, tachycardia = obstructive pancreatitis * 04/16/19 BCx (-) 2. Severe pancreatitis -Triglycerides within normal limits 3. Obstructive Gallstone => MRCP revealed: A small gallstone is present within the cystic duct remnant. 4. History of cholecystectomy 5. Elevated LFTs with elevated direct hyperbilirubinemia * Hepatitis serology for hepatitis B/C is negative * Autoimmune work up in process == (-Patient had a blood test about a week ago at a clinic) 6. DM with hyperglycemia currently on insulin drip 7. Hypertension (-)MRSA Nares ABX ALLERGIES: KNDA INVASIVES: PIV CURRENT ABX: DAY #Vanco IV + Merrem ID RECOMMENDATIONS/PLAN: 1. Continue ABX over the weekend 2. Follow recs per GI/surgery . Consultation Date/Type/Reason Admit Date/Time Apr 16, 2019 at 20:18 Initial Consult Date 04/17/19 Date/Time of Note DATE: 04/18/19 TIME: 11:32 Exam/Review of Systems Exam Vitals Vital Signs Date Temp Pulse Resp B/P (MAP) Pulse Ox O2 O2 Flow FiO2 Time Delivery Rate 04/18/19 104 22 165/94 100 Room Air 08:30 (117) 04/18/19 98.8 08:00 04/18/19 2.0 06:00 Intake and Output 04/17/19 04/17/19 04/18/19 1515:00 23:00 07:00 IntakeIntake Total 1337 ml 1197.993 ml 1197.007 ml OutputOutput Total 1 ml 0 ml BalanceBalance 1336 ml 1197.993 ml 1197.007 ml Results Result Diagram: 04/18/19 0423 04/18/19 0423 Results 24hrs Laboratory Tests Test 04/17/19 12:29 04/17/19 13:28 04/17/19 13:49 04/17/19 15:02 Bedside Glucose 152 132 143 Lactic Acid Level 0.9 Test 04/17/19 16:01 04/17/19 17:06 04/17/19 18:57 04/17/19 18:59 Bedside Glucose 148 143 129 Lactic Acid Level 0.8 Test 04/17/19 20:16 04/17/19 21:23 04/17/19 22:06 04/18/19 00:06 Bedside Glucose 131 116 124 127 Test 04/18/19 01:05 04/18/19 01:58 04/18/19 04:23 04/18/19 04:31 Lactic Acid Level 0.7 Bedside Glucose 125 116 White Blood Count 21.6 H Red Blood Count 3.83 L Hemoglobin 11.6 L Hematocrit 34.3 L Mean Corpuscular 89.6 Volume Mean Corpuscular 30.3 Hemoglobin Mean Corpuscular 33.8 Hemoglobin Concent Red Cell 15.3 H Distribution Width Platelet Count 257 Mean Platelet Volume 9.5 Immature 1.500 H Granulocytes % Neutrophils % 84.9 H Lymphocytes % 8.5 L Monocytes % 5.0 Eosinophils % 0.0 Basophils % 0.1 Nucleated Red Blood 0.0 Cells % Immature 0.320 H Granulocytes # Neutrophils # 18.3 H Lymphocytes # 1.8 Monocytes # 1.1 H Eosinophils # 0.0 Basophils # 0.0 Nucleated Red Blood 0.0 Cells # Sodium Level 142 Potassium Level 2.9 *L Chloride Level 109 Carbon Dioxide Level 25 Anion Gap 8 Blood Urea Nitrogen 13 Creatinine 0.53 Est Glomerular > 60 Filtrat Rate mL/min Glucose Level 122 # Calcium Level 7.6 L Phosphorus Level 2.1 L Magnesium Level 2.0 Total Bilirubin 1.9 #H Direct Bilirubin 0.00 # Indirect Bilirubin 1.9 H Aspartate Amino 299 H Transf (AST/SGOT) Alanine 631 H Aminotransferase (AL T/SGPT) Alkaline Phosphatase 588 H Total Protein 6.6 Albumin 3.2 L Lipase 748 H Test 04/18/19 06:04 04/18/19 06:40 04/18/19 08:01 04/18/19 09:01 Bedside Glucose 130 146 143 Lactic Acid Level 1.2 Test 04/18/19 10:04 04/18/19 11:19 Bedside Glucose 135 151 Medications Medication Current Medications Sodium Chloride 1,000 ml @ 125 mls/hr Q8H IV Last administered on 04/18/19at 07:46; Admin Dose 125 MLS/HR; Start 04/16/19 at 21:16 Albuterol/ Ipratropium (Duoneb) 3 ml Q2H RESP THERAPY PRN NEB SHORTNESS OF BREATH; Start 04/16/19 at 21:30 Acetaminophen (Tylenol Supp) 650 mg Q4H PRN [place] PAIN LEVEL 1-3 OR FEVER; Start 04/16/19 at 21:30 Heparin Sodium (Porcine) (Heparin (5000 Units/1ml)) 5,000 unit Q12 SC Last administered on 04/18/19at 10:22; Admin Dose 5,000 UNIT; Start 04/17/19 at 09:00 Insulin Human Regular 100 unit/ Sodium Chloride 100 ml @ 0 mls/hr PER PROTOCOL IV Last administered on 04/17/19at 19:10; Admin Dose 3 MLS/HR; Start 04/16/19 at 21:30 Miscellaneous Information (* Miscellaneous Pharmacy Order) Treatment of Hypoglycemia: 1.BG 51... Per protocol XX ; Start 04/16/19 at 21:30 Dextrose (D50w Syringe) 25 ml Q15M PRN IV .DECREASED GLUCOSE; Start 04/16/19 at 21:30 Dextrose (D50w Syringe) 50 ml Q15M PRN IV .DECREASED GLUCOSE; Start 04/16/19 at 21:30 Famotidine (Pepcid Iv) 20 mg Q12 IV Last administered on 04/18/19at 10:17; Admin Dose 20 MG; Start 04/17/19 at 09:00 Vancomycin HCl (Vanco Iv Per Pharmacy) VANCOMYCIN PER PHARMACY PER PROTOCOL XX ; Start 04/17/19 at 02:00 Vancomycin HCl 1.25 gm/Sodium Chloride 250 ml @ 83.333 mls/ hr Q12H IVPB Last administered on 04/17/19at 21:34; Admin Dose 83.333 MLS/HR; Start 04/17/19 at 10:00 Miscellaneous Information (*Rx Drug Level Order Reminder*) VANCOMYCIN TROUGH LEVEL 2100 ONCE XX ; Start 04/18/19 at 21:00; Stop 04/18/19 at 21:01 Meropenem/Sodium Chloride 50 ml @ 100 mls/hr Q12 IVPB Last administered on 04/18/19 10:17; Admin Dose 100 MLS/HR; Start 04/17/19 at 21:00 Hydromorphone HCl (Dilaudid) 1.5 mg Q3H PRN IV PAIN Last administered on 04/18/19 10:46; Admin Dose 1.5 MG; Start 04/17/19 at 13:00 Diagnostic Test (Pha) (Accu-Chek) 1 ea Q1H XX Last administered on 04/18/19at 11:19; Admin Dose 1 EA; Start 04/17/19 at 16:00 Potassium Chloride 100 ml @ 50 mls/hr Q2H IVPB Last administered on 04/18/19at 10:24; Admin Dose 50 MLS/HR; Start 04/18/19 at 06:00; Stop 04/18/19 at 11:59 Potassium Phosphate 20 meq/ Sodium Chloride 254.5455 ml @ 63.636 m... ONCE ONCE IVPB Last administered on 04/18/19at 10:25; Admin Dose 63.636 MLS/HR; Start 04/18/19 at 10:00; Stop 04/18/19 at 13:59 Hydralazine HCl (Apresoline) 10 mg Q4H PRN IV ELEVATED BLOOD PRESSURE; Start 04/18/19 at 09:30 HALLE FAULKNER NP Apr 18, 2019 11:42
--- NOTE | 2019-04-18 13:14 | PN ---
Date/Time of Note Date/Time of Note DATE: 04/18/19 TIME: 13:02 Assessment/Plan VTE Prophylaxis Risk score (from Nsg)>0 risk: 1 SCD applied (from Nsg): No SCD contraindicated: other (as ordered) Pharmacological prophylaxis: other (as ordered) Lines/Catheters IV Catheter Type (from [facility]): Peripheral IV Assessment/Plan Hospital Course Summary Assessment and Plan: Assessment: Severe pancreatitis -Triglycerides within normal limits Elevated LFTs with elevated direct hyperbilirubinemia -Concerns for cholangitis/choledocholithiasis -MRCP- A small gallstone is present within the cystic duct remnant. No biliary dilatation or evidence of choledocholithiasis. -Hepatitis serology for hepatitis B/C is negative Sepsis- ID following DM with hyperglycemia currently on insulin drip Hypertension History of cholecystectomy Hepatomegaly with fatty infiltration. Plan: Strict NPO until pain is 1-2/10 without pain medication MRCP- reviewed - stone in cystic duct- CBD without evidence of choledocholithiasis- Currently no plan for ERCP- pt is improving Monitor labs Auto-immune work-up pending Patient seen in collaboration with Dr. Carr Subjective: Course reviewed with nursing staff Patient interviewed and examined All labs, imaging and other results reviewed The patient is improving overall, LFTS trending down, Lipase is also down. WBC remains elevated. MRCP results reviewed- currently no plan for ERCP. Continue antibiotics per ID. Maintain close observation. PHYSICAL EXAMINATION: GENERAL: Well developed, well nourished, alert & oriented x 3, obese SKIN: No lesions HEAD: Normocephalic, atraumatic, no tenderness. EYES: Pupils equal reactive to light and accommodation, no discharge. EARS/NOSE AND THROAT: Ears normal, nose normal. NECK: Supple, no masses. CHEST: Inspection within normal limits. CARDIOVASCULAR: Heart: Regular rate and rhythm RESPIRATORY: Lungs clear to auscultation GASTROINTESTINAL AND LIVER: Abdomen: Soft, RUQ pain 3/10, LUQ 3/10, non- distended, no hernias, no masses, no organomegaly, no ascites, no guarding, no rebound tenderness, normoactive bowel sounds. Rectal: Deferred. Result Diagram: 04/18/19 0423 04/18/19 0423 Results 24hrs Laboratory Tests Test 04/17/19 13:28 04/17/19 13:49 04/17/19 15:02 04/17/19 16:01 Bedside Glucose 132 143 148 Lactic Acid Level 0.9 Test 04/17/19 17:06 04/17/19 18:57 04/17/19 18:59 04/17/19 20:16 Bedside Glucose 143 129 131 Lactic Acid Level 0.8 Test 04/17/19 21:23 04/17/19 22:06 04/18/19 00:06 04/18/19 01:05 Bedside Glucose 116 124 127 Lactic Acid Level 0.7 Test 04/18/19 01:58 04/18/19 04:23 04/18/19 04:31 04/18/19 06:04 Bedside Glucose 125 116 130 White Blood Count 21.6 H Red Blood Count 3.83 L Hemoglobin 11.6 L Hematocrit 34.3 L Mean Corpuscular 89.6 Volume Mean Corpuscular 30.3 Hemoglobin Mean Corpuscular 33.8 Hemoglobin Concent Red Cell 15.3 H Distribution Width Platelet Count 257 Mean Platelet Volume 9.5 Immature 1.500 H Granulocytes % Neutrophils % 84.9 H Lymphocytes % 8.5 L Monocytes % 5.0 Eosinophils % 0.0 Basophils % 0.1 Nucleated Red Blood 0.0 Cells % Immature 0.320 H Granulocytes # Neutrophils # 18.3 H Lymphocytes # 1.8 Monocytes # 1.1 H Eosinophils # 0.0 Basophils # 0.0 Nucleated Red Blood 0.0 Cells # Sodium Level 142 Potassium Level 2.9 *L Chloride Level 109 Carbon Dioxide Level 25 Anion Gap 8 Blood Urea Nitrogen 13 Creatinine 0.53 Est Glomerular > 60 Filtrat Rate mL/min Glucose Level 122 # Calcium Level 7.6 L Phosphorus Level 2.1 L Magnesium Level 2.0 Total Bilirubin 1.9 #H Direct Bilirubin 0.00 # Indirect Bilirubin 1.9 H Aspartate Amino 299 H Transf (AST/SGOT) Alanine 631 H Aminotransferase (AL T/SGPT) Alkaline Phosphatase 588 H Total Protein 6.6 Albumin 3.2 L Lipase 748 H Test 04/18/19 06:40 04/18/19 08:01 04/18/19 09:01 04/18/19 10:04 Lactic Acid Level 1.2 Bedside Glucose 146 143 135 Test 04/18/19 11:19 Bedside Glucose 151 Exam/Review of Systems Exam Vitals Vital Signs Date Temp Pulse Resp B/P (MAP) Pulse Ox O2 O2 Flow FiO2 Time Delivery Rate 04/18/19 106 12:01 04/18/19 22 165/94 100 Room Air 08:30 (117) 04/18/19 98.8 08:00 04/18/19 2.0 06:00 Intake and Output 04/17/19 04/17/19 04/18/19 1515:00 23:00 07:00 IntakeIntake Total 1337 ml 1197.993 ml 1197.007 ml OutputOutput Total 1 ml 0 ml BalanceBalance 1336 ml 1197.993 ml 1197.007 ml Results Results 24hrs Laboratory Tests Test 04/17/19 13:28 04/17/19 13:49 04/17/19 15:02 04/17/19 16:01 Bedside Glucose 132 143 148 Lactic Acid Level 0.9 Test 04/17/19 17:06 04/17/19 18:57 04/17/19 18:59 04/17/19 20:16 Bedside Glucose 143 129 131 Lactic Acid Level 0.8 Test 04/17/19 21:23 04/17/19 22:06 04/18/19 00:06 04/18/19 01:05 Bedside Glucose 116 124 127 Lactic Acid Level 0.7 Test 04/18/19 01:58 04/18/19 04:23 04/18/19 04:31 04/18/19 06:04 Bedside Glucose 125 116 130 White Blood Count 21.6 H Red Blood Count 3.83 L Hemoglobin 11.6 L Hematocrit 34.3 L Mean Corpuscular 89.6 Volume Mean Corpuscular 30.3 Hemoglobin Mean Corpuscular 33.8 Hemoglobin Concent Red Cell 15.3 H Distribution Width Platelet Count 257 Mean Platelet Volume 9.5 Immature 1.500 H Granulocytes % Neutrophils % 84.9 H Lymphocytes % 8.5 L Monocytes % 5.0 Eosinophils % 0.0 Basophils % 0.1 Nucleated Red Blood 0.0 Cells % Immature 0.320 H Granulocytes # Neutrophils # 18.3 H Lymphocytes # 1.8 Monocytes # 1.1 H Eosinophils # 0.0 Basophils # 0.0 Nucleated Red Blood 0.0 Cells # Sodium Level 142 Potassium Level 2.9 *L Chloride Level 109 Carbon Dioxide Level 25 Anion Gap 8 Blood Urea Nitrogen 13 Creatinine 0.53 Est Glomerular > 60 Filtrat Rate mL/min Glucose Level 122 # Calcium Level 7.6 L Phosphorus Level 2.1 L Magnesium Level 2.0 Total Bilirubin 1.9 #H Direct Bilirubin 0.00 # Indirect Bilirubin 1.9 H Aspartate Amino 299 H Transf (AST/SGOT) Alanine 631 H Aminotransferase (AL T/SGPT) Alkaline Phosphatase 588 H Total Protein 6.6 Albumin 3.2 L Lipase 748 H Test 04/18/19 06:40 04/18/19 08:01 04/18/19 09:01 04/18/19 10:04 Lactic Acid Level 1.2 Bedside Glucose 146 143 135 Test 04/18/19 11:19 Bedside Glucose 151 Medications Medication Current Medications Sodium Chloride 1,000 ml @ 125 mls/hr Q8H IV Last administered on 04/18/19at 07:46; Admin Dose 125 MLS/HR; Start 04/16/19 at 21:16 Albuterol/ Ipratropium (Duoneb) 3 ml Q2H RESP THERAPY PRN NEB SHORTNESS OF BREATH; Start 04/16/19 at 21:30 Acetaminophen (Tylenol Supp) 650 mg Q4H PRN [place] PAIN LEVEL 1-3 OR FEVER; Start 04/16/19 at 21:30 Heparin Sodium (Porcine) (Heparin (5000 Units/1ml)) 5,000 unit Q12 SC Last administered on 04/18/19at 10:22; Admin Dose 5,000 UNIT; Start 04/17/19 at 09:00 Insulin Human Regular 100 unit/ Sodium Chloride 100 ml @ 0 mls/hr PER PROTOCOL IV Last administered on 04/17/19at 19:10; Admin Dose 3 MLS/HR; Start 04/16/19 at 21:30 Miscellaneous Information (* Miscellaneous Pharmacy Order) Treatment of Hypoglycemia: 1.BG 51... Per protocol XX ; Start 04/16/19 at 21:30 Dextrose (D50w Syringe) 25 ml Q15M PRN IV .DECREASED GLUCOSE; Start 04/16/19 at 21:30 Dextrose (D50w Syringe) 50 ml Q15M PRN IV .DECREASED GLUCOSE; Start 04/16/19 at 21:30 Famotidine (Pepcid Iv) 20 mg Q12 IV Last administered on 04/18/19at 10:17; Admin Dose 20 MG; Start 04/17/19 at 09:00 Vancomycin HCl (Vanco Iv Per Pharmacy) VANCOMYCIN PER PHARMACY PER PROTOCOL XX ; Start 04/17/19 at 02:00 Vancomycin HCl 1.25 gm/Sodium Chloride 250 ml @ 83.333 mls/ hr Q12H IVPB Last administered on 04/18/19at 11:36; Admin Dose 83.333 MLS/HR; Start 04/17/19 at 10:00 Miscellaneous Information (*Rx Drug Level Order Reminder*) VANCOMYCIN TROUGH LEVEL 2100 ONCE XX ; Start 04/18/19 at 21:00; Stop 04/18/19 at 21:01 Meropenem/Sodium Chloride 50 ml @ 100 mls/hr Q12 IVPB Last administered on 04/18/19at 10:17; Admin Dose 100 MLS/HR; Start 04/17/19 at 21:00 Hydromorphone HCl (Dilaudid) 1.5 mg Q3H PRN IV PAIN Last administered on 9at 10:46; Admin Dose 1.5 MG; Start 04/17/19 at 13:00 Diagnostic Test (Pha) (Accu-Chek) 1 ea Q1H XX Last administered on 04/18/19at 11:19; Admin Dose 1 EA; Start 04/17/19 at 16:00 Potassium Phosphate 20 meq/ Sodium Chloride 254.5455 ml @ 63.636 m... ONCE ONCE IVPB Last administered on 04/18/19at 10:25; Admin Dose 63.636 MLS/HR; Start 04/18/19 at 10:00; Stop 04/18/19 at 13:59 Hydralazine HCl (Apresoline) 10 mg Q4H PRN IV ELEVATED BLOOD PRESSURE; Start 04/18/19 at 09:30 RIAN BIRD Apr 18, 2019 13:13
[2019-04-18] MEDS: hydrALAzine 20 MG INJ IV PRN ×2 (14:13→19:39)
[2019-04-19] VITALS (22 sets, daily range): BP systolic 108–180; BP diastolic 66–107; PULSE 83–110; RESP 13–21
[2019-04-19] MEDS: ACCU-CHEK XX SCH ×13 (01:00→12:31)
[2019-04-19] MEDS: HYDROmorphONE 2 MG/ML SYG IV PRN ×5 (01:04→20:27)
[2019-04-19] MEDS: SOD CHLORIDE 0.9% 1,000 ML IV SCH ×3 (02:58→22:41)
[2019-04-19] MEDS: INSULIN HUMAN REGULAR 100 UNIT in SOD CHLORIDE 0.9% 99 ML IV SCH (06:17)
[2019-04-19] MEDS ORDERED: POTASSIUM CHLORIDE (SR) 20 MEQ TAB PO ONE (07:00)
[2019-04-19] MEDS ORDERED: POTASSIUM CHLORIDE 20 MEQ POWDER FOR ORAL SOLN PO ONE (07:30)
[2019-04-19] MEDS ORDERED: POTASSIUM PHOSPHATE 30 MEQ in SOD CHLORIDE 0.9% 250 ML IVPB ONE (09:20)
[2019-04-19] MEDS: FAMOTIDINE 20 MG INJ IV SCH ×2 (09:33→20:26)
[2019-04-19] MEDS: MEROPENEM 1 GM/50ML(PMX) 50 ML IVPB SCH ×2 (09:33→20:26)
--- NOTE | 2019-04-19 09:35 | PN ---
Date/Time of Note Date/Time of Note DATE: 04/19/19 TIME: 09:29 Assessment/Plan VTE Prophylaxis Risk score (from Nsg)>0 risk: 2 SCD applied (from Nsg): Yes Pharmacological prophylaxis: heparin Lines/Catheters IV Catheter Type (from Nrs): [place] Assessment/Plan Assessment/Plan 53-year-old female with a history of hypertension and a laparoscopic cholecystectomy in 2014 presented with 3 weeks history of right upper quadrant abdominal pain, vomiting and jaundice secondary to pancreatitis and likely cho ledocholithiasis and possible cholangitis. Note however that the patient has been taking steroid for " allergy" for the past few days. 1. Severe pancreatitis - with likely choledocholithiasis and cholangitis. LFTs including AST, ALT, direct and total bilirubins are significant elevated. -Continue aggressive IV fluid -Hep panel negative -Autoimmune workup pending: antimitochondrial Ab, anti-smooth muscle. - ID is following and has her on broad spectrum antibiotics. Unclear what condition this is treating. 2. Hyperglycemia - Transition to subQ insulin today. 3. Hypertension: - Resume home atenolol and losartan for now. Hold off on HCTZ. Critical care time spent in patient care today equals 45 minutes. Result Diagram: 04/19/19 0443 04/19/19 0443 Subjective 24 Hr Interval Summary Free Text/Dictation No acute overnight events. Patient continues to have abdominal pain and anorexia, and fatigue. Exam/Review of Systems Exam Vitals Vital Signs Date Temp Pulse Resp B/P (MAP) Pulse Ox O2 O2 Flow FiO2 Time Delivery Rate 04/19/19 101 08:00 04/19/19 13 157/96 99 Room Air 06:00 (116) 04/19/19 98.6 04:00 04/18/19 2.0 06:00 Intake and Output 04/18/19 04/18/19 04/19/19 1515:00 23:00 07:00 IntakeIntake Total 1830 ml 1075 ml 1270.999 ml OutputOutput Total 1510 ml 780 ml BalanceBalance 320 ml 295 ml 1270.999 ml Exam Gen: Obese woman lying in bed, awake and alert. Head: Atraumatic Eyes: Normal Conjunctiva ENT: Normal External Ears, Nose and Mouth. Neck: Full range of motion. No meningismus. Resp: Clear to auscultation bilaterally Cardio: Regular rate and rhythm, no murmurs Abd: Hypoactive bowel sounds. Epigastric tenderness to palpation. Results Results 24hrs Laboratory Tests Test 04/18/19 10:04 04/18/19 11:19 04/18/19 12:09 04/18/19 13:07 Bedside Glucose 135 151 139 132 Test 04/18/19 14:08 04/18/19 15:05 04/18/19 16:07 04/18/19 17:07 Bedside Glucose 129 120 151 143 Test 04/18/19 18:02 04/18/19 19:06 04/18/19 20:02 04/18/19 21:04 Bedside Glucose 120 136 134 130 Test 04/18/19 21:16 04/18/19 22:08 04/18/19 23:04 04/19/19 00:01 Vancomycin Level 7.7 L Trough Bedside Glucose 128 129 136 Test 04/19/19 01:00 04/19/19 02:37 04/19/19 03:24 04/19/19 04:31 Bedside Glucose 129 129 130 117 Test 04/19/19 04:43 04/19/19 05:22 04/19/19 06:12 04/19/19 07:01 White Blood Count 18.4 H Red Blood Count 3.93 L Hemoglobin 12.0 Hematocrit 34.2 L Mean Corpuscular 87.0 Volume Mean Corpuscular 30.5 Hemoglobin Mean Corpuscular 35.1 Hemoglobin Concent Red Cell 14.7 H Distribution Width Platelet Count 300 Mean Platelet Volume 9.8 Immature 2.400 H Granulocytes % Neutrophils % 81.2 H Lymphocytes % 10.6 L Monocytes % 5.4 Eosinophils % 0.1 Basophils % 0.3 Nucleated Red Blood 0.0 Cells % Immature 0.440 H Granulocytes # Neutrophils # 14.9 H Lymphocytes # 1.9 Monocytes # 1.0 H Eosinophils # 0.0 Basophils # 0.1 Nucleated Red Blood 0.0 Cells # Sodium Level 140 Potassium Level 2.4 *L Chloride Level 101 Carbon Dioxide Level 27 Anion Gap 12 Blood Urea Nitrogen 7 Creatinine 0.50 Est Glomerular > 60 Filtrat Rate mL/min Glucose Level 135 Calcium Level 8.0 L Phosphorus Level 1.7 L Magnesium Level 1.9 Total Bilirubin 1.8 H Direct Bilirubin 0.00 Indirect Bilirubin 1.8 H Aspartate Amino 73 H Transf (AST/SGOT) Alanine 397 H Aminotransferase (AL T/SGPT) Alkaline Phosphatase 479 H Total Protein 5.8 L Albumin 3.0 L Lipase 186 Bedside Glucose 120 121 115 Test 04/19/19 08:16 04/19/19 09:18 Bedside Glucose 123 129 Medications Medication Current Medications Sodium Chloride 1,000 ml @ 125 mls/hr Q8H IV Last administered on 04/19/19at 02:58; Admin Dose 125 MLS/HR; Start 04/16/19 at 21:16 Albuterol/ Ipratropium (Duoneb) 3 ml Q2H RESP THERAPY PRN NEB SHORTNESS OF BREATH; Start 04/16/19 at 21:30 Acetaminophen (Tylenol Supp) 650 mg Q4H PRN [place] PAIN LEVEL 1-3 OR FEVER; Start 04/16/19 at 21:30 Heparin Sodium (Porcine) (Heparin (5000 Units/1ml)) 5,000 unit Q12 SC Last administered on 04/18/19at 20:08; Admin Dose 5,000 UNIT; Start 04/17/19 at 09:00 Insulin Human Regular 100 unit/ Sodium Chloride 100 ml @ 0 mls/hr PER PROTOCOL IV Last administered on 04/19/19at 06:17; Admin Dose 3 MLS/HR; Start 04/16/19 at 21:30 Miscellaneous Information (* Miscellaneous Pharmacy Order) Treatment of Hy poglycemia: 1.BG 51... Per protocol XX ; Start 04/16/19 at 21:30 Dextrose (D50w Syringe) 25 ml Q15M PRN IV .DECREASED GLUCOSE; Start 04/16/19 at 21:30 Dextrose (D50w Syringe) 50 ml Q15M PRN IV .DECREASED GLUCOSE; Start 04/16/19 at 21:30 Famotidine (Pepcid Iv) 20 mg Q12 IV Last administered on 04/18/19at 20:07; Admin Dose 20 MG; Start 04/17/19 at 09:00 Vancomycin HCl (Vanco Iv Per Pharmacy) VANCOMYCIN PER PHARMACY PER PROTOCOL XX ; Start 04/17/19 at 02:00 Meropenem/Sodium Chloride 50 ml @ 100 mls/hr Q12 IVPB Last administered on 04/18/19at 20:07; Admin Dose 100 MLS/HR; Start 04/17/19 at 21:00 Hydromorphone HCl (Dilaudid) 1.5 mg Q3H PRN IV PAIN Last administered on 04/19/19at 05:27; Admin Dose 1.5 MG; Start 04/17/19 at 13:00 Diagnostic Test (Pha) (Accu-Chek) 1 ea Q1H XX Last administered on 04/19/19at 08:11; Admin Dose 1 EA; Start 04/17/19 at 16:00 Hydralazine HCl (Apresoline) 10 mg Q4H PRN IV ELEVATED BLOOD PRESSURE Last administered on 04/18/19at 19:39; Admin Dose 10 MG; Start 04/18/19 at 09:30 Vancomycin HCl 1.75 gm/Sodium Chloride 500 ml @ 125 mls/hr Q12H IVPB ; Start 04/19/19 at 10:00 Potassium Phosphate 30 meq/ Sodium Chloride 256.8182 ml @ 64.205 m... ONCE ONCE IVPB ; Start 04/19/19 at 09:20; Stop 04/19/19 at 13:19 AMEE RODRÍGUEZ MD Apr 19, 2019 09:35
[2019-04-19] MEDS: HEPARIN 5,000 UNIT/1 ML VIAL SC SCH ×2 (09:46→20:32)
[2019-04-19] MEDS ORDERED: INSULIN GLARGINE [LANTus] (100 UNITS/ML) SYG SC ONE (10:00)
[2019-04-19] MEDS ORDERED: VANCOMYCIN HCL 1.75 GM in SOD CHLORIDE 0.9% 500 ML IVPB SCH (10:00)
[2019-04-19] MEDS: hydrALAzine 20 MG INJ IV PRN (10:28)
[2019-04-19] MEDS ORDERED: INSULIN ASPART [NOVOLOG] 3 ML PEN SC SCH ×2 (11:30→18:00)
[2019-04-19] MEDS: LOSARTAN 50 MG TAB PO SCH (11:34)
[2019-04-19] MEDS: ATENOLOL 50 MG TAB PO SCH (11:34)
--- NOTE | 2019-04-19 12:21 | CONS ---
Assessment/Plan Assessment/Plan Hospital Course (Demo Recall) Alert feels better looks comfortable no fevers overnight. WBC 18.4 platelets 300 neutrophils 81.2 BUN 7 creatinine 0.50 Microbiology: All cultures negative Antimicrobials: Vancomycin meropenem Allergies: Zosyn Physical examination: This is a morbidly obese well-developed middle-aged [place] woman who is alert in no distress. Head atraumatic normocephalic sclera nonicteric vehicle mucosa dry neck is supple chest rise symmetrical breath sounds diminished to bases heart: S1-S2. Abdomen obese soft bowel sounds present. Extremities without cyanosis. Assessment: 1. Severe sepsis on admission, resolving 2. Acute pancreatitis 3. Cholangitis 4. Poorly controlled diabetes 5. Morbid obesity Plan: Patient is doing better, continue present care antibiotics, follow GI recommendations Consultation Date/Type/Reason Admit Date/Time Apr 16, 2019 at 20:18 Initial Consult Date 04/17/19 Type of Consult id Date/Time of Note DATE: 04/19/19 TIME: 12:21 Exam/Review of Systems Exam Vitals Vital Signs Date Temp Pulse Resp B/P (MAP) Pulse Ox O2 O2 Flow FiO2 Time Delivery Rate 04/19/19 101 08:00 04/19/19 13 157/96 99 Room Air 06:00 (116) 04/19/19 98.6 04:00 04/18/19 2.0 06:00 Intake and Output 04/18/19 04/18/19 04/19/19 1515:00 23:00 07:00 IntakeIntake Total 1830 ml 1075 ml 1270.999 ml OutputOutput Total 1510 ml 780 ml 350 ml BalanceBalance 320 ml 295 ml 920.999 ml Results Result Diagram: 04/19/19 0443 04/19/19 0443 Results 24hrs Laboratory Tests Test 04/18/19 13:07 04/18/19 14:08 04/18/19 15:05 04/18/19 16:07 Bedside Glucose 132 129 120 151 Test 04/18/19 17:07 04/18/19 18:02 04/18/19 19:06 04/18/19 20:02 Bedside Glucose 143 120 136 134 Test 04/18/19 21:04 04/18/19 21:16 04/18/19 22:08 04/18/19 23:04 Bedside Glucose 130 128 129 Vancomycin Level 7.7 L Trough Test 04/19/19 00:01 04/19/19 01:00 04/19/19 02:37 04/19/19 03:24 Bedside Glucose 136 129 129 130 Test 04/19/19 04:31 04/19/19 04:43 04/19/19 05:22 04/19/19 06:12 Bedside Glucose 117 120 121 White Blood Count 18.4 H Red Blood Count 3.93 L Hemoglobin 12.0 Hematocrit 34.2 L Mean Corpuscular 87.0 Volume Mean Corpuscular 30.5 Hemoglobin Mean Corpuscular 35.1 Hemoglobin Concent Red Cell 14.7 H Distribution Width Platelet Count 300 Mean Platelet Volume 9.8 Immature 2.400 H Granulocytes % Neutrophils % 81.2 H Lymphocytes % 10.6 L Monocytes % 5.4 Eosinophils % 0.1 Basophils % 0.3 Nucleated Red Blood 0.0 Cells % Immature 0.440 H Granulocytes # Neutrophils # 14.9 H Lymphocytes # 1.9 Monocytes # 1.0 H Eosinophils # 0.0 Basophils # 0.1 Nucleated Red Blood 0.0 Cells # Sodium Level 140 Potassium Level 2.4 *L Chloride Level 101 Carbon Dioxide Level 27 Anion Gap 12 Blood Urea Nitrogen 7 Creatinine 0.50 Est Glomerular > 60 Filtrat Rate mL/min Glucose Level 135 Calcium Level 8.0 L Phosphorus Level 1.7 L Magnesium Level 1.9 Total Bilirubin 1.8 H Direct Bilirubin 0.00 Indirect Bilirubin 1.8 H Aspartate Amino 73 H Transf (AST/SGOT) Alanine 397 H Aminotransferase (AL T/SGPT) Alkaline Phosphatase 479 H Total Protein 5.8 L Albumin 3.0 L Lipase 186 Test 04/19/19 07:01 04/19/19 08:16 04/19/19 09:18 04/19/19 10:24 Bedside Glucose 115 123 129 116 Test 04/19/19 11:28 Bedside Glucose 119 Medications Medication Current Medications Sodium Chloride 1,000 ml @ 125 mls/hr Q8H IV Last administered on 04/19/19at 02:58; Admin Dose 125 MLS/HR; Start 04/16/19 at 21:16 Albuterol/ Ipratropium (Duoneb) 3 ml Q2H RESP THERAPY PRN NEB SHORTNESS OF BREATH; Start 04/16/19 at 21:30 Acetaminophen (Tylenol Supp) 650 mg Q4H PRN [place] PAIN LEVEL 1-3 OR FEVER; Start 04/16/19 at 21:30 Heparin Sodium (Porcine) (Heparin (5000 Units/1ml)) 5,000 unit Q12 SC Last administered on 04/19/19 09:46; Admin Dose 5,000 UNIT; Start 04/17/19 at 09:00 Insulin Human Regular 100 unit/ Sodium Chloride 100 ml @ 0 mls/hr PER PROTOCOL IV Last administered on 04/19/19 06:17; Admin Dose 3 MLS/HR; Start 04/16/19 at 21:30; Status Hold Miscellaneous Information (* Miscellaneous Pharmacy Order) Treatment of Hypoglycemia: 1.BG 51... Per protocol XX ; Start 04/16/19 at 21:30 Dextrose (D50w Syringe) 25 ml Q15M PRN IV .DECREASED GLUCOSE; Start 04/16/19 at 21:30 Dextrose (D50w Syringe) 50 ml Q15M PRN IV .DECREASED GLUCOSE; Start 04/16/19 at 21:30 Famotidine (Pepcid Iv) 20 mg Q12 IV Last administered on 04/19/19 09:33; Admin Dose 20 MG; Start 04/17/19 at 09:00 Vancomycin HCl (Vanco Iv Per Pharmacy) VANCOMYCIN PER PHARMACY PER PROTOCOL XX ; Start 04/17/19 at 02:00 Meropenem/Sodium Chloride 50 ml @ 100 mls/hr Q12 IVPB Last administered on 04/19/19 09:33; Admin Dose 100 MLS/HR; Start 04/17/19 at 21:00 Hydromorphone HCl (Dilaudid) 1.5 mg Q3H PRN IV PAIN Last administered on 04/19/19 09:39; Admin Dose 1.5 MG; Start 04/17/19 at 13:00 Diagnostic Test (Pha) (Accu-Chek) 1 ea Q1H XX Last administered on 04/19/19 11:37; Admin Dose 1 EA; Start 04/17/19 at 16:00 Hydralazine HCl (Apresoline) 10 mg Q4H PRN IV ELEVATED BLOOD PRESSURE Last administered on 04/19/19 10:28; Admin Dose 10 MG; Start 04/18/19 at 09:30 Vancomycin HCl 1.75 gm/Sodium Chloride 500 ml @ 125 mls/hr Q12H IVPB ; Start 04/19/19 at 10:00 Potassium Phosphate 30 meq/ Sodium Chloride 256.8182 ml @ 64.205 m... ONCE ONCE IVPB Last administered on 04/19/19at 11:33; Admin Dose 64.205 MLS/HR; Start 04/19/19 at 09:20; Stop 04/19/19 at 13:19 Insulin Glargine (Lantus) 20 units DAILY@0800 SC ; Start 04/20/19 at 08:00 Insulin Aspart (Novolog Insulin Pen) NOVOLOG *MODERATE* ALGORITHM WITH MEALS BEDTIME SC ; Start 04/19/19 at 11:30 Atenolol (Tenormin) 50 mg DAILY PO Last administered on 04/19/19at 11:34; Admin Dose 50 MG; Start 04/19/19 at 10:00 Losartan Potassium (Cozaar) 50 mg DAILY PO Last administered on 04/19/19at 11:34; Admin Dose 50 MG; Start 04/19/19 at 10:00 FRANCIS POWERS NP Apr 19, 2019 12:21
--- NOTE | 2019-04-19 17:33 | PN ---
Date/Time of Note Date/Time of Note DATE: 04/19/19 TIME: 17:32 Assessment/Plan VTE Prophylaxis Risk score (from Nsg)>0 risk: 2 SCD applied (from Nsg): Yes Pharmacological prophylaxis: other (scds) Lines/Catheters IV Catheter Type (from Nrs): [place] Assessment/Plan Hospital Course Summary Assessment and Plan: Assessment: Severe pancreatitis -Triglycerides within normal limits -Autoimmune work-up pending Elevated LFTs - (improving) Elevated direct hyperbilirubinemia- resolved- pt now with Indirect hyperbilirubinemia - trending down -Concerns for cholangitis/choledocholithiasis -MRCP- A small gallstone is present within the cystic duct remnant. No biliary dilatation or evidence of choledocholithiasis. -Hepatitis serology for hepatitis B/C is negative -Auto immune work-up pending Sepsis- ID following -Leukocytosis -Blood cx- no growth -Urine cx- Kasey SpecieS <10,000 DM with hyperglycemia currently on insulin drip Hypertension History of cholecystectomy Hepatomegaly with fatty infiltration. Obese -BMI 38.8 Hypokalemia Plan: Pt now only c/o RUQ pain- Lipase WNL- will start clear liquid diet and maintain close observation Continue to trend LFTs- currently no plan for GI intervention unless patient's condition deteriorates- overall patient appears to be improving with the exception of elevated WBC MRCP- reviewed - stone in cystic duct- CBD without evidence of choledocholithiasis- Currently no plan for ERCP Auto-immune work-up pending Patient seen in collaboration with Dr. Carr Subjective: Course reviewed with nursing staff Patient interviewed and examined All labs, imaging and other results reviewed No over night events, patient states pain overall has improved not mainly localized to RUQ. LFTs improving, Lipase WNL, WBC's remain elevated no change from yesterday. ID following Pt states she had x3 samll episodes of diarrhea yesterday ,which hgas resolved- if diarrhea reoccurs today will send stool studies PHYSICAL EXAMINATION: GENERAL: Well developed, well nourished, obese,alert & oriented x 3, obese SKIN: No lesions HEAD: Normocephalic, atraumatic, no tenderness. EYES: Pupils equal reactive to light and accommodation, no discharge. EARS/NOSE AND THROAT: Ears normal, nose normal. NECK: Supple, no masses. CHEST: Inspection within normal limits. CARDIOVASCULAR: Heart: Regular rate and rhythm RESPIRATORY: Lungs clear to auscultation GASTROINTESTINAL AND LIVER: Abdomen: Soft, RUQ pain 3/10- with pain medication, LUQ- no pain, non-distended, no hernias, no masses, no organomegaly, no ascites, no guarding, no rebound tenderness, normoactive bowel sounds. Rectal: Deferred. Result Diagram: 04/19/19 0443 04/19/19 0443 Results 24hrs Laboratory Tests Test 04/18/19 18:02 04/18/19 19:06 04/18/19 20:02 04/18/19 21:04 Bedside Glucose 120 136 134 130 Test 04/18/19 21:16 04/18/19 22:08 04/18/19 23:04 04/19/19 00:01 Vancomycin Level 7.7 L Trough Bedside Glucose 128 129 136 Test 04/19/19 01:00 04/19/19 02:37 04/19/19 03:24 04/19/19 04:31 Bedside Glucose 129 129 130 117 Test 04/19/19 04:43 04/19/19 05:22 04/19/19 06:12 04/19/19 07:01 White Blood Count 18.4 H Red Blood Count 3.93 L Hemoglobin 12.0 Hematocrit 34.2 L Mean Corpuscular 87.0 Volume Mean Corpuscular 30.5 Hemoglobin Mean Corpuscular 35.1 Hemoglobin Concent Red Cell 14.7 H Distribution Width Platelet Count 300 Mean Platelet Volume 9.8 Immature 2.400 H Granulocytes % Neutrophils % 81.2 H Lymphocytes % 10.6 L Monocytes % 5.4 Eosinophils % 0.1 Basophils % 0.3 Nucleated Red Blood 0.0 Cells % Immature 0.440 H Granulocytes # Neutrophils # 14.9 H Lymphocytes # 1.9 Monocytes # 1.0 H Eosinophils # 0.0 Basophils # 0.1 Nucleated Red Blood 0.0 Cells # Sodium Level 140 Potassium Level 2.4 *L Chloride Level 101 Carbon Dioxide Level 27 Anion Gap 12 Blood Urea Nitrogen 7 Creatinine 0.50 Est Glomerular > 60 Filtrat Rate mL/min Glucose Level 135 Calcium Level 8.0 L Phosphorus Level 1.7 L Magnesium Level 1.9 Total Bilirubin 1.8 H Direct Bilirubin 0.00 Indirect Bilirubin 1.8 H Aspartate Amino 73 H Transf (AST/SGOT) Alanine 397 H Aminotransferase (AL T/SGPT) Alkaline Phosphatase 479 H Total Protein 5.8 L Albumin 3.0 L Lipase 186 Bedside Glucose 120 121 115 Test 04/19/19 08:16 04/19/19 09:18 04/19/19 10:24 04/19/19 11:28 Bedside Glucose 123 129 116 119 Test 04/19/19 12:34 Bedside Glucose 122 Exam/Review of Systems Exam Vitals Vital Signs Date Temp Pulse Resp B/P (MAP) Pulse Ox O2 O2 Flow FiO2 Time Delivery Rate 04/19/19 98.6 89 18 134/92 96 15:36 (106) 04/19/19 Room Air 12:45 04/18/19 2.0 06:00 Intake and Output 04/18/19 04/18/19 04/19/19 1414:59 22:59 06:59 IntakeIntake Total 1630 ml 1325 ml 1273.999 ml OutputOutput Total 1510 ml 780 ml BalanceBalance 120 ml 545 ml 1273.999 ml Results Results 24hrs Laboratory Tests Test 04/18/19 18:02 04/18/19 19:06 04/18/19 20:02 04/18/19 21:04 Bedside Glucose 120 136 134 130 Test 04/18/19 21:16 04/18/19 22:08 04/18/19 23:04 04/19/19 00:01 Vancomycin Level 7.7 L Trough Bedside Glucose 128 129 136 Test 04/19/19 01:00 04/19/19 02:37 04/19/19 03:24 04/19/19 04:31 Bedside Glucose 129 129 130 117 Test 04/19/19 04:43 04/19/19 05:22 04/19/19 06:12 04/19/19 07:01 White Blood Count 18.4 H Red Blood Count 3.93 L Hemoglobin 12.0 Hematocrit 34.2 L Mean Corpuscular 87.0 Volume Mean Corpuscular 30.5 Hemoglobin Mean Corpuscular 35.1 Hemoglobin Concent Red Cell 14.7 H Distribution Width Platelet Count 300 Mean Platelet Volume 9.8 Immature 2.400 H Granulocytes % Neutrophils % 81.2 H Lymphocytes % 10.6 L Monocytes % 5.4 Eosinophils % 0.1 Basophils % 0.3 Nucleated Red Blood 0.0 Cells % Immature 0.440 H Granulocytes # Neutrophils # 14.9 H Lymphocytes # 1.9 Monocytes # 1.0 H Eosinophils # 0.0 Basophils # 0.1 Nucleated Red Blood 0.0 Cells # Sodium Level 140 Potassium Level 2.4 *L Chloride Level 101 Carbon Dioxide Level 27 Anion Gap 12 Blood Urea Nitrogen 7 Creatinine 0.50 Est Glomerular > 60 Filtrat Rate mL/min Glucose Level 135 Calcium Level 8.0 L Phosphorus Level 1.7 L Magnesium Level 1.9 Total Bilirubin 1.8 H Direct Bilirubin 0.00 Indirect Bilirubin 1.8 H Aspartate Amino 73 H Transf (AST/SGOT) Alanine 397 H Aminotransferase (AL T/SGPT) Alkaline Phosphatase 479 H Total Protein 5.8 L Albumin 3.0 L Lipase 186 Bedside Glucose 120 121 115 Test 04/19/19 08:16 04/19/19 09:18 04/19/19 10:24 04/19/19 11:28 Bedside Glucose 123 129 116 119 Test 04/19/19 12:34 Bedside Glucose 122 Medications Medication Current Medications Sodium Chloride 1,000 ml @ 125 mls/hr Q8H IV Last administered on 04/19/19at 02:58; Admin Dose 125 MLS/HR; Start 04/16/19 at 21:16 Albuterol/ Ipratropium (Duoneb) 3 ml Q2H RESP THERAPY PRN NEB SHORTNESS OF BREATH; Start 04/16/19 at 21:30 Acetaminophen (Tylenol Supp) 650 mg Q4H PRN CO PAIN LEVEL 1-3 OR FEVER; Start 04/16/19 at 21:30 Heparin Sodium (Porcine) (Heparin (5000 Units/1ml)) 5,000 unit Q12 SC Last administered on 04/19/19at 09:46; Admin Dose 5,000 UNIT; Start 04/17/19 at 09:00 Dextrose (D50w Syringe) 25 ml Q15M PRN IV .DECREASED GLUCOSE; Start 04/16/19 at 21:30 Dextrose (D50w Syringe) 50 ml Q15M PRN IV .DECREASED GLUCOSE; Start 04/16/19 at 21:30 Famotidine (Pepcid Iv) 20 mg Q12 IV Last administered on 04/19/19 09:33; Admin Dose 20 MG; Start 04/17/19 at 09:00 Meropenem/Sodium Chloride 50 ml @ 100 mls/hr Q12 IVPB Last administered on 09:33; Admin Dose 100 MLS/HR; Start 04/17/19 at 21:00 Hydromorphone HCl (Dilaudid) 1.5 mg Q3H PRN IV PAIN Last administered on 04/19/19 16:11; Admin Dose 1.5 MG; Start 04/17/19 at 13:00 Hydralazine HCl (Apresoline) 10 mg Q4H PRN IV ELEVATED BLOOD PRESSURE Last administered on 04/19/19 10:28; Admin Dose 10 MG; Start 04/18/19 at 09:30 Insulin Glargine (Lantus) 20 units DAILY@0800 SC ; Start 04/20/19 at 08:00 Atenolol (Tenormin) 50 mg DAILY PO Last administered on 04/19/19 11:34; Admin Dose 50 MG; Start 04/19/19 at 10:00 Losartan Potassium (Cozaar) 50 mg DAILY PO Last administered on 04/19/19 11:34; Admin Dose 50 MG; Start 04/19/19 at 10:00 Insulin Aspart (Novolog Insulin Pen) (Adult SC Insulin - Moder... WITH MEALS BEDTIME SC ; Start 04/19/19 at 18:00 Diagnostic Test (Pha) (Accu-Chek) 1 ea 02 XX ; Start 04/20/19 at 02:00 RIAN BIRD Apr 19, 2019 17:33
[2019-04-19] MEDS: Insulin NOVOLOG SS MODERATE Algorithm (SS with meals and bedtime) SC SCH ×2 (18:02→20:33)
[2019-04-20] MEDS: HYDROmorphONE 2 MG/ML SYG IV PRN ×6 (01:53→21:25)
[2019-04-20] MEDS: ACCUCHECK AT 2AM (Patients on SS coverage) XX SCH (02:00)
[2019-04-20 02:54] VITALS: BP 140/77; PULSE 81; RESP 18
[2019-04-20] MEDS: SOD CHLORIDE 0.9% 1,000 ML IV SCH ×3 (06:00→23:12)
[2019-04-20 07:50] VITALS: BP 127/68; PULSE 89; RESP 18
[2019-04-20] MEDS: INSULIN GLARGINE [LANTus] (100 UNITS/ML) SYG SC SCH ×2 (08:00→12:42)
[2019-04-20] MEDS: Insulin NOVOLOG SS MODERATE Algorithm (SS with meals and bedtime) SC SCH ×4 (08:00→21:00)
[2019-04-20] MEDS: MEROPENEM 1 GM/50ML(PMX) 50 ML IVPB SCH ×2 (08:11→21:26)
[2019-04-20] MEDS: FAMOTIDINE 20 MG INJ IV SCH ×2 (08:11→21:25)
[2019-04-20] MEDS: HEPARIN 5,000 UNIT/1 ML VIAL SC SCH ×2 (08:11→21:38)
[2019-04-20] MEDS: ATENOLOL 50 MG TAB PO SCH (08:12)
[2019-04-20] MEDS: LOSARTAN 50 MG TAB PO SCH (08:12)
[2019-04-20] MEDS ORDERED: POTASSIUM CHLORIDE (SR) 20 MEQ TAB PO STA (10:08)
--- NOTE | 2019-04-20 13:26 | PN ---
Date/Time of Note Date/Time of Note DATE: 04/20/19 TIME: 13:23 Assessment/Plan VTE Prophylaxis Risk score (from Nsg)>0 risk: 2 SCD applied (from Nsg): Yes Pharmacological prophylaxis: heparin Lines/Catheters IV Catheter Type (from Nrsg): Mid Line Assessment/Plan Assessment/Plan 53-year-old obese woman with a history of hypertension and a laparoscopic cholecystectomy in 2014 presented with 3 weeks history of right upper quadrant abdominal pain, vomiting and jaundice secondary to pancreatitis and likely c holedocholithiasis and possible cholangitis. Note however that the patient has been taking steroid for " allergy" for the past few days. 1. Severe pancreatitis - with likely choledocholithiasis and cholangitis. LFTs including AST, ALT, direct and total bilirubins are significant elevated. -Continue IV fluids -Hep panel negative - Getting dilaudid IV around the clock. keep NPO. -Autoimmune workup pending: antimitochondrial Ab, anti-smooth muscle. - ID is following and has her on broad spectrum antibiotics. Unclear what condition this is treating. 2. 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 3. Hypertension: - Resume home atenolol and losartan for now. Hold off on HCTZ. Result Diagram: 04/20/19 0756 04/20/19 0756 Subjective 24 Hr Interval Summary Free Text/Dictation Getting dilaudid around the clock for epigastric pain. got clear liquids as ordered by GI for lunch today with worsening pain and nausea. Exam/Review of Systems Exam Vitals Vital Signs Date Temp Pulse Resp B/P (MAP) Pulse Ox O2 O2 Flow FiO2 Time Delivery Rate 04/20/19 98.7 89 18 127/68 98 07:50 (87) 04/20/19 Room Air 02:54 04/18/19 2.0 06:00 Intake and Output 04/19/19 04/19/19 04/20/19 1515:00 23:00 07:00 IntakeIntake Total 675 ml 931.8182 ml 1000 ml OutputOutput Total 2200 ml BalanceBalance -1525 ml 931.8182 ml 1000 ml Exam Gen: Obese woman lying in bed, awake and alert. Head: Atraumatic Eyes: Normal Conjunctiva ENT: Normal External Ears, Nose and Mouth. Neck: Full range of motion. No meningismus. Resp: Clear to auscultation bilaterally Cardio: Regular rate and rhythm, no murmurs Abd: Hypoactive bowel sounds. Epigastric tenderness to palpation. Results Results 24hrs Laboratory Tests Test 04/19/19 18:00 04/19/19 20:26 04/20/19 07:56 04/20/19 08:04 Bedside Glucose 154 132 130 White Blood Count 18.5 H Red Blood Count 3.85 L Hemoglobin 11.6 L Hematocrit 34.4 L Mean Corpuscular 89.4 Volume Mean Corpuscular 30.1 Hemoglobin Mean Corpuscular 33.7 Hemoglobin Concent Red Cell 14.8 H Distribution Width Platelet Count 351 Mean Platelet Volume 9.6 Immature 2.500 H Granulocytes % Neutrophils % 77.0 Lymphocytes % 11.1 L Monocytes % 8.3 Eosinophils % 0.5 Basophils % 0.6 Nucleated Red Blood 0.0 Cells % Immature 0.470 H Granulocytes # Neutrophils # 14.3 H Lymphocytes # 2.1 Monocytes # 1.5 H Eosinophils # 0.1 Basophils # 0.1 Nucleated Red Blood 0.0 Cells # Sodium Level 138 Potassium Level 2.6 *L Chloride Level 99 Carbon Dioxide Level 26 Anion Gap 13 Blood Urea Nitrogen 8 Creatinine 0.50 Est Glomerular > 60 Filtrat Rate mL/min Glucose Level 150 Calcium Level 8.1 L Total Bilirubin 1.4 H Direct Bilirubin 0.00 Indirect Bilirubin 1.4 H Aspartate Amino 36 Transf (AST/SGOT) Alanine 234 H Aminotransferase (AL T/SGPT) Alkaline Phosphatase 384 H Total Protein 5.7 L Albumin 2.8 L Test 04/20/19 12:32 Bedside Glucose 155 Medications Medication Current Medications Albuterol/ Ipratropium (Duoneb) 3 ml Q2H RESP THERAPY PRN NEB SHORTNESS OF BREATH; Start 04/16/19 at 21:30 Acetaminophen (Tylenol Supp) 650 mg Q4H PRN OR PAIN LEVEL 1-3 OR FEVER; Start 04/16/19 at 21:30 Heparin Sodium (Porcine) (Heparin (5000 Units/1ml)) 5,000 unit Q12 SC Last administered on 04/20/19at 08:11; Admin Dose 5,000 UNIT; Start 04/17/19 at 09:00 Dextrose (D50w Syringe) 25 ml Q15M PRN IV .DECREASED GLUCOSE; Start 04/16/19 at 21:30 Dextrose (D50w Syringe) 50 ml Q15M PRN IV .DECREASED GLUCOSE; Start 04/16/19 at 21:30 Famotidine (Pepcid Iv) 20 mg Q12 IV Last administered on 04/20/19 08:11; Admin Dose 20 MG; Start 04/17/19 at 09:00 Meropenem/Sodium Chloride 50 ml @ 100 mls/hr Q12 IVPB Last administered on 04/20/19 08:11; Admin Dose 100 MLS/HR; Start 04/17/19 at 21:00 Hydromorphone HCl (Dilaudid) 1.5 mg Q3H PRN IV PAIN Last administered on 04/20/19 13:06; Admin Dose 1.5 MG; Start 04/17/19 at 13:00 Hydralazine HCl (Apresoline) 10 mg Q4H PRN IV ELEVATED BLOOD PRESSURE Last administered on 04/19/19 10:28; Admin Dose 10 MG; Start 04/18/19 at 09:30 Insulin Glargine (Lantus) 20 units DAILY@0800 SC Last administered on 04/20/19 12:42; Admin Dose 20 UNITS; Start 04/20/19 at 08:00 Atenolol (Tenormin) 50 mg DAILY PO Last administered on 04/20/19 08:12; Admin Dose 50 MG; Start 04/19/19 at 10:00 Losartan Potassium (Cozaar) 50 mg DAILY PO Last administered on 04/20/19 08:12; Admin Dose 50 MG; Start 04/19/19 at 10:00 Insulin Aspart (Novolog Insulin Pen) (Adult SC Insulin - Moder... WITH MEALS BEDTIME SC Last administered on 04/20/19 12:43; Admin Dose 2 UNIT; Start 04/19/19 at 18:00 Diagnostic Test (Pha) (Accu-Chek) 1 ea 02 XX ; Start 04/20/19 at 02:00 Sodium Chloride 1,000 ml @ 125 mls/hr Q8H IV Last administered on 04/20/19 06:00; Admin Dose 125 MLS/HR; Start 04/19/19 at 23:00 AMEE RODRÍGUEZ MD Apr 20, 2019 13:26
[2019-04-20 14:00] VITALS: BP 142/77; PULSE 87; RESP 18
--- NOTE | 2019-04-20 15:41 | CONS ---
Assessment/Plan Assessment/Plan Hospital Course (Demo Recall) Alert, feels good no fevers started on clears Microbiology: All cultures negative Antimicrobials: Vancomycin meropenem Allergies: Zosyn Physical examination: This is a morbidly obese well-developed middle-aged woman who is alert in no distress. Head atraumatic normocephalic sclera nonicteric vehicle mucosa dry neck is supple chest rise symmetrical breath sounds diminished to bases heart: S1-S2. Abdomen obese soft bowel sounds present. Extremities without cyanosis. Assessment: 1. Severe sepsis on admission, resolving 2. Acute pancreatitis 3. Cholangitis 4. Poorly controlled diabetes 5. Morbid obesity Plan: Improving, continue present care, monitor labs, follow GI recommendations Consultation Date/Type/Reason Admit Date/Time Apr 16, 2019 at 20:18 Initial Consult Date 04/17/19 Type of Consult id Date/Time of Note DATE: 04/20/19 TIME: 15:40 Exam/Review of Systems Exam Vitals Vital Signs Date Temp Pulse Resp B/P (MAP) Pulse Ox O2 O2 Flow FiO2 Time Delivery Rate 04/20/19 98.1 87 18 142/77 97 14:00 (98) 04/20/19 Room Air 02:54 04/18/19 2.0 06:00 Intake and Output 04/19/19 04/19/19 04/20/19 1515:00 23:00 07:00 IntakeIntake Total 675 ml 931.8182 ml 1000 ml OutputOutput Total 2200 ml BalanceBalance -1525 ml 931.8182 ml 1000 ml Results Result Diagram: 04/20/19 0756 04/20/19 0756 Results 24hrs Laboratory Tests Test 04/19/19 18:00 04/19/19 20:26 04/20/19 07:56 04/20/19 08:04 Bedside Glucose 154 132 130 White Blood Count 18.5 H Red Blood Count 3.85 L Hemoglobin 11.6 L Hematocrit 34.4 L Mean Corpuscular 89.4 Volume Mean Corpuscular 30.1 Hemoglobin Mean Corpuscular 33.7 Hemoglobin Concent Red Cell 14.8 H Distribution Width Platelet Count 351 Mean Platelet Volume 9.6 Immature 2.500 H Granulocytes % Neutrophils % 77.0 Lymphocytes % 11.1 L Monocytes % 8.3 Eosinophils % 0.5 Basophils % 0.6 Nucleated Red Blood 0.0 Cells % Immature 0.470 H Granulocytes # Neutrophils # 14.3 H Lymphocytes # 2.1 Monocytes # 1.5 H Eosinophils # 0.1 Basophils # 0.1 Nucleated Red Blood 0.0 Cells # Sodium Level 138 Potassium Level 2.6 *L Chloride Level 99 Carbon Dioxide Level 26 Anion Gap 13 Blood Urea Nitrogen 8 Creatinine 0.50 Est Glomerular > 60 Filtrat Rate mL/min Glucose Level 150 Calcium Level 8.1 L Total Bilirubin 1.4 H Direct Bilirubin 0.00 Indirect Bilirubin 1.4 H Aspartate Amino 36 Transf (AST/SGOT) Alanine 234 H Aminotransferase (AL T/SGPT) Alkaline Phosphatase 384 H Total Protein 5.7 L Albumin 2.8 L Test 04/20/19 12:32 Bedside Glucose 155 Medications Medication Current Medications Albuterol/ Ipratropium (Duoneb) 3 ml Q2H RESP THERAPY PRN NEB SHORTNESS OF BREATH; Start 04/16/19 at 21:30 Acetaminophen (Tylenol Supp) 650 mg Q4H PRN [place] PAIN LEVEL 1-3 OR FEVER; Start 04/16/19 at 21:30 Heparin Sodium (Porcine) (Heparin (5000 Units/1ml)) 5,000 unit Q12 SC Last administered on 04/20/19at 08:11; Admin Dose 5,000 UNIT; Start 04/17/19 at 09:00 Dextrose (D50w Syringe) 25 ml Q15M PRN IV .DECREASED GLUCOSE; Start 04/16/19 at 21:30 Dextrose (D50w Syringe) 50 ml Q15M PRN IV .DECREASED GLUCOSE; Start 04/16/19 at 21:30 Famotidine (Pepcid Iv) 20 mg Q12 IV Last administered on 04/20/19at 08:11; Admin Dose 20 MG; Start 04/17/19 at 09:00 Meropenem/Sodium Chloride 50 ml @ 100 mls/hr Q12 IVPB Last administered on 04/20/19at 08:11; Admin Dose 100 MLS/HR; Start 04/17/19 at 21:00 Hydromorphone HCl (Dilaudid) 1.5 mg Q3H PRN IV PAIN Last administered on 04/20/19at 13:06; Admin Dose 1.5 MG; Start 04/17/19 at 13:00 Hydralazine HCl (Apresoline) 10 mg Q4H PRN IV ELEVATED BLOOD PRESSURE Last administered on 04/19/19 10:28; Admin Dose 10 MG; Start 04/18/19 at 09:30 Insulin Glargine (Lantus) 20 units DAILY@0800 SC Last administered on 04/20/19 12:42; Admin Dose 20 UNITS; Start 04/20/19 at 08:00 Atenolol (Tenormin) 50 mg DAILY PO Last administered on 04/20/19 08:12; Admin Dose 50 MG; Start 04/19/19 at 10:00 Losartan Potassium (Cozaar) 50 mg DAILY PO Last administered on 04/20/19 08:12; Admin Dose 50 MG; Start 04/19/19 at 10:00 Insulin Aspart (Novolog Insulin Pen) (Adult SC Insulin - Moder... WITH MEALS BEDTIME SC Last administered on 04/20/19 12:43; Admin Dose 2 UNIT; Start 04/19/19 at 18:00 Diagnostic Test (Pha) (Accu-Chek) 1 ea 02 XX ; Start 04/20/19 at 02:00 Sodium Chloride 1,000 ml @ 125 mls/hr Q8H IV Last administered on 04/20/19 14:20; Admin Dose 125 MLS/HR; Start 04/19/19 at 23:00 FRANCIS POWERS NP Apr 20, 2019 15:41
[2019-04-20 20:00] VITALS: BP 188/100; PULSE 91; RESP 19
[2019-04-20] MEDS: hydrALAzine 20 MG INJ IV PRN (21:25)
[2019-04-20 23:22] VITALS: BP 143/71
[2019-04-21] MEDS: HYDROmorphONE 2 MG/ML SYG IV PRN ×5 (01:21→20:50)
[2019-04-21 02:00] VITALS: BP 127/65; PULSE 102; RESP 18
[2019-04-21] MEDS: ACCUCHECK AT 2AM (Patients on SS coverage) XX SCH (02:00)
[2019-04-21] MEDS: ACETAMINOPHEN 325 MG TAB PO PRN (03:15)
[2019-04-21] MEDS: SOD CHLORIDE 0.9% 1,000 ML IV SCH ×3 (06:55→23:00)
[2019-04-21 07:26] VITALS: BP 133/68; PULSE 84; RESP 18
[2019-04-21] MEDS: Insulin NOVOLOG SS MODERATE Algorithm (SS with meals and bedtime) SC SCH ×4 (08:00→20:54)
[2019-04-21] MEDS: ATENOLOL 50 MG TAB PO SCH (08:20)
[2019-04-21] MEDS: FAMOTIDINE 20 MG INJ IV SCH ×2 (08:20→20:50)
[2019-04-21] MEDS: MEROPENEM 1 GM/50ML(PMX) 50 ML IVPB SCH ×2 (08:21→22:43)
[2019-04-21] MEDS: HEPARIN 5,000 UNIT/1 ML VIAL SC SCH ×2 (08:25→20:54)
[2019-04-21] MEDS: INSULIN GLARGINE [LANTus] (100 UNITS/ML) SYG SC SCH (08:29)
[2019-04-21] MEDS: LOSARTAN 50 MG TAB PO SCH (09:26)
--- NOTE | 2019-04-21 11:04 | PN ---
Date/Time of Note Date/Time of Note DATE: 04/21/19 TIME: 11:00 Assessment/Plan VTE Prophylaxis Risk score (from Nsg)>0 risk: 1 SCD applied (from Ns): No SCD contraindicated: other (scds) Pharmacological prophylaxis: other (scds) Lines/Catheters IV Catheter Type (from [facility]): Mid Line Assessment/Plan Hospital Course Summary Assessment and Plan: Assessment: Severe pancreatitis -Triglycerides within normal limits -IgG4- WNL Elevated LFTs - (improving) Elevated direct hyperbilirubinemia- resolved- pt now with Indirect hyperbilirubinemia - trending down -Concerns for cholangitis/choledocholithiasis -MRCP- A small gallstone is present within the cystic duct remnant. No biliary dilatation or evidence of choledocholithiasis. -Hepatitis serology for hepatitis B/C is negative -Auto immune ASMA 1:80 - STAR negative - Liver US- Hepatic steatosis. Underlying hepatocellular disease cannot be excluded. Sepsis- ID following -Leukocytosis -Blood cx- no growth -Urine cx- [place] SpecieS <10,000 DM with hyperglycemia currently on insulin drip Hypertension History of cholecystectomy Hepatomegaly with fatty infiltration. Obese -BMI 38.8 Hypokalemia Plan: Diet- changed back to NPO ASMA positive 1:80 - IgG WNL- will continue to monitor- currently no plan to treat with steroids given improved LFTs and normal range of IgG. Will order LKM- for further evaluation- Liver us- reviewed Continue supportive Patient seen in collaboration with Dr. Carr Subjective: Course reviewed with nursing staff Patient interviewed and examined All labs, imaging and other results reviewed Pt with increased pin yesterday- diet back to NPO Fevers noted yesterday. Pt continues to c/o RUQ pain. No c/o n/v. PHYSICAL EXAMINATION: GENERAL: Well developed, well nourished, obese,alert & oriented x 3, obese SKIN: No lesions HEAD: Normocephalic, atraumatic, no tenderness. EYES: Pupils equal reactive to light and accommodation, no discharge. EARS/NOSE AND THROAT: Ears normal, nose normal. NECK: Supple, no masses. CHEST: Inspection within normal limits. CARDIOVASCULAR: Heart: Regular rate and rhythm RESPIRATORY: Lungs clear to auscultation GASTROINTESTINAL AND LIVER: Abdomen: Soft, RUQ pain 3/10- with pain medication, LUQ- no pain, non-distended, no hernias, no masses, no organomegaly, no ascites, no guarding, no rebound tenderness, normoactive bowel sounds. Rectal: Deferred. Result Diagram: 04/21/19 0955 04/20/19 0756 Results 24hrs Laboratory Tests Test 04/20/19 12:32 04/20/19 17:06 04/20/19 21:24 04/21/19 05:30 Bedside Glucose 155 111 112 Urine Color YELLOW Urine Clarity CLEAR Urine pH 6.0 Urine Specific 1.010 [place] Urine Ketones 2+ H Urine Nitrite NEGATIVE Urine Bilirubin NEGATIVE Urine Urobilinogen NEGATIVE Urine Leukocyte NEGATIVE Esterase Urine Hemoglobin NEGATIVE Urine Glucose NEGATIVE Urine Total Protein NEGATIVE Test 04/21/19 08:28 04/21/19 09:55 Bedside Glucose 111 White Blood Count 17.8 H Red Blood Count 3.71 L Hemoglobin 11.5 L Hematocrit 32.9 L Mean Corpuscular 88.7 Volume Mean Corpuscular 31.0 Hemoglobin Mean Corpuscular 35.0 Hemoglobin Concent Red Cell 14.5 Distribution Width Platelet Count 362 Mean Platelet Volume 9.4 Immature 4.400 H Granulocytes % Neutrophils % 74.4 Lymphocytes % 11.6 L Monocytes % 7.8 Eosinophils % 1.2 Basophils % 0.6 Nucleated Red Blood 0.1 H Cells % Immature 0.790 H Granulocytes # Neutrophils # 13.2 H Lymphocytes # 2.1 Monocytes # 1.4 H Eosinophils # 0.2 Basophils # 0.1 Nucleated Red Blood 0.0 Cells # Magnesium Level 2.0 Exam/Review of Systems Exam Vitals Vital Signs Date Temp Pulse Resp B/P (MAP) Pulse Ox O2 O2 Flow FiO2 Time Delivery Rate 04/21/19 98.5 84 18 133/68 97 Room Air 07:26 (89) 04/18/19 2.0 06:00 Intake and Output 04/20/19 04/20/19 04/21/19 1515:00 23:00 07:00 IntakeIntake Total 1850 ml 550 ml 1900 ml BalanceBalance 1850 ml 550 ml 1900 ml Results Results 24hrs Laboratory Tests Test 04/20/19 12:32 04/20/19 17:06 04/20/19 21:24 04/21/19 05:30 Bedside Glucose 155 111 112 Urine Color YELLOW Urine Clarity CLEAR Urine pH 6.0 Urine Specific 1.010 [place] Urine Ketones 2+ H Urine Nitrite NEGATIVE Urine Bilirubin NEGATIVE Urine Urobilinogen NEGATIVE Urine Leukocyte NEGATIVE Esterase Urine Hemoglobin NEGATIVE Urine Glucose NEGATIVE Urine Total Protein NEGATIVE Test 04/21/19 08:28 04/21/19 09:55 Bedside Glucose 111 White Blood Count 17.8 H Red Blood Count 3.71 L Hemoglobin 11.5 L Hematocrit 32.9 L Mean Corpuscular 88.7 Volume Mean Corpuscular 31.0 Hemoglobin Mean Corpuscular 35.0 Hemoglobin Concent Red Cell 14.5 Distribution Width Platelet Count 362 Mean Platelet Volume 9.4 Immature 4.400 H Granulocytes % Neutrophils % 74.4 Lymphocytes % 11.6 L Monocytes % 7.8 Eosinophils % 1.2 Basophils % 0.6 Nucleated Red Blood 0.1 H Cells % Immature 0.790 H Granulocytes # Neutrophils # 13.2 H Lymphocytes # 2.1 Monocytes # 1.4 H Eosinophils # 0.2 Basophils # 0.1 Nucleated Red Blood 0.0 Cells # Magnesium Level 2.0 Medications Medication Current Medications Albuterol/ Ipratropium (Duoneb) 3 ml Q2H RESP THERAPY PRN NEB SHORTNESS OF LAST TH; Start 04/16/19 at 21:30 Acetaminophen (Tylenol Supp) 650 mg Q4H PRN [place] PAIN LEVEL 1-3 OR FEVER; Start 04/16/19 at 21:30 Heparin Sodium (Porcine) (Heparin (5000 Units/1ml)) 5,000 unit Q12 SC Last administered on 04/21/19at 08:25; Admin Dose 5,000 UNIT; Start 04/17/19 at 09:00 Dextrose (D50w Syringe) 25 ml Q15M PRN IV .DECREASED GLUCOSE; Start 04/16/19 at 21:30 Dextrose (D50w Syringe) 50 ml Q15M PRN IV .DECREASED GLUCOSE; Start 04/16/19 at 21:30 Famotidine (Pepcid Iv) 20 mg Q12 IV Last administered on 04/21/19at 08:20; Admin Dose 20 MG; Start 04/17/19 at 09:00 Meropenem/Sodium Chloride 50 ml @ 100 mls/hr Q12 IVPB Last administered on 04/21/19at 08:21; Admin Dose 100 MLS/HR; Start 04/17/19 at 21:00 Hydromorphone HCl (Dilaudid) 1.5 mg Q3H PRN IV PAIN Last administered on 04/21/19 09:03; Admin Dose 1.5 MG; Start 04/17/19 at 13:00 Hydralazine HCl (Apresoline) 10 mg Q4H PRN IV ELEVATED BLOOD PRESSURE Last administered on 04/20/19 21:25; Admin Dose 10 MG; Start 04/18/19 at 09:30 Insulin Glargine (Lantus) 20 units DAILY@0800 SC Last administered on 04/21/19 08:29; Admin Dose 20 UNITS; Start 04/20/19 at 08:00 Atenolol (Tenormin) 50 mg DAILY PO Last administered on 04/21/19 08:20; Admin Dose 50 MG; Start 04/19/19 at 10:00 Losartan Potassium (Cozaar) 50 mg DAILY PO Last administered on 04/21/19 09:26; Admin Dose 50 MG; Start 04/19/19 at 10:00 Insulin Aspart (Novolog Insulin Pen) (Adult SC Insulin - Moder... WITH MEALS BEDTIME SC Last administered on 04/20/19 12:43; Admin Dose 2 UNIT; Start 04/19/19 at 18:00 Diagnostic Test (Pha) (Accu-Chek) 1 ea 02 XX ; Start 04/20/19 at 02:00 Sodium Chloride 1,000 ml @ 125 mls/hr Q8H IV Last administered on 04/21/19 06:55; Admin Dose 125 MLS/HR; Start 04/19/19 at 23:00 Acetaminophen (Tylenol Tab) 650 mg Q4H PRN PO MILD PAIN(1-3)OR ELEVATED TEMP Last administered on 04/21/19 03:15; Admin Dose 650 MG; Start 04/21/19 at 03:00 RIAN BIRD Apr 21, 2019 11:04
[2019-04-21] MEDS ORDERED: POTASSIUM CHLORIDE 20 MEQ POWDER FOR ORAL SOLN PO ONE (11:30)
[2019-04-21] MEDS ORDERED: VANCOMYCIN IV PER PHARMACY XX SCH (12:00)
[2019-04-21] MEDS: POTASSIUM CHLORIDE 50 ML IVPB SCH ×3 (12:32→23:35)
[2019-04-21] MEDS ORDERED: CASPOFUNGIN 70 MG in SOD CHLORIDE 0.9% 250 ML IVPB ONE (13:00)
[2019-04-21 13:35] VITALS: BP 133/71; PULSE 82; RESP 18
--- NOTE | 2019-04-21 14:25 | PN ---
Date/Time of Note Date/Time of Note DATE: 04/21/19 TIME: 14:23 Assessment/Plan VTE Prophylaxis Risk score (from Nsg)>0 risk: 1 SCD applied (from Ns): No SCD contraindicated: low risk/ambulating Pharmacological prophylaxis: heparin Lines/Catheters IV Catheter Type (from Nrs): Mid Line Assessment/Plan Assessment/Plan 53-year-old obese woman with a history of hypertension and a laparoscopic cholecystectomy in 2014 presented with 3 weeks history of right upper quadrant abdominal pain, vomiting and jaundice secondary to pancreatitis and likely choledocholithiasis and possible cholangitis. Note however that the patient has been taking steroid for " allergy" for the past few days. 1. Severe pancreatitis - with likely choledocholithiasis and cholangitis. LFTs including AST, ALT, direct and total bilirubins are significant elevated. -Continue IV fluids -Hep panel negative - Getting dilaudid IV around the clock. - Will start clear liquids today. -Autoimmune workup pending: antimitochondrial Ab, anti-smooth muscle. - ID is following and has her on broad spectrum antibiotics. Unclear what condition this is treating. 2. 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 3. Hypertension: - Resume home atenolol and losartan for now. Hold off on HCTZ. Result Diagram: 04/21/19 0955 04/21/19 0955 Subjective 24 Hr Interval Summary Free Text/Dictation Continues to have moderate epigastric abdominal pain. Exam/Review of Systems Exam Vitals Vital Signs Date Temp Pulse Resp B/P (MAP) Pulse Ox O2 O2 Flow FiO2 Time Delivery Rate 04/21/19 99.1 82 18 133/71 98 13:35 (91) 04/21/19 Room Air 07:26 04/18/19 2.0 06:00 Intake and Output 04/20/19 04/20/19 04/21/19 1515:00 23:00 07:00 IntakeIntake Total 1850 ml 550 ml 1900 ml BalanceBalance 1850 ml 550 ml 1900 ml Exam Gen: Obese woman lying in bed, awake and alert. Head: Atraumatic Eyes: Normal Conjunctiva ENT: Normal External Ears, Nose and Mouth. Neck: Full range of motion. No meningismus. Resp: Clear to auscultation bilaterally Cardio: Regular rate and rhythm, no murmurs Abd: Hypoactive bowel sounds. Moderate epigastric tenderness to palpation. Results Results 24hrs Laboratory Tests Test 04/20/19 17:06 04/20/19 21:24 04/21/19 05:30 04/21/19 08:28 Bedside Glucose 111 112 111 Urine Color YELLOW Urine Clarity CLEAR Urine pH 6.0 Urine Specific 1.010 [place] Urine Ketones 2+ H Urine Nitrite NEGATIVE Urine Bilirubin NEGATIVE Urine Urobilinogen NEGATIVE Urine Leukocyte NEGATIVE Esterase Urine Hemoglobin NEGATIVE Urine Glucose NEGATIVE Urine Total Protein NEGATIVE Test 04/21/19 09:55 04/21/19 11:35 White Blood Count 17.8 H Red Blood Count 3.71 L Hemoglobin 11.5 L Hematocrit 32.9 L Mean Corpuscular 88.7 Volume Mean Corpuscular 31.0 Hemoglobin Mean Corpuscular 35.0 Hemoglobin Concent Red Cell 14.5 Distribution Width Platelet Count 362 Mean Platelet Volume 9.4 Immature 4.400 H Granulocytes % Neutrophils % 74.4 Lymphocytes % 11.6 L Monocytes % 7.8 Eosinophils % 1.2 Basophils % 0.6 Nucleated Red Blood 0.1 H Cells % Immature 0.790 H Granulocytes # Neutrophils # 13.2 H Lymphocytes # 2.1 Monocytes # 1.4 H Eosinophils # 0.2 Basophils # 0.1 Nucleated Red Blood 0.0 Cells # Sodium Level 137 Potassium Level 2.2 *L Chloride Level 99 Carbon Dioxide Level 26 Anion Gap 12 Blood Urea Nitrogen 6 L Creatinine 0.42 L Est Glomerular > 60 Filtrat Rate mL/min Glucose Level 114 Calcium Level 7.8 L Phosphorus Level 2.4 L Magnesium Level 2.0 Vancomycin Level < 5.0 L Trough Bedside Glucose 117 Medications Medication Current Medications Albuterol/ Ipratropium (Duoneb) 3 ml Q2H RESP THERAPY PRN NEB SHORTNESS OF BREATH; Start 04/16/19 at 21:30 Acetaminophen (Tylenol Supp) 650 mg Q4H PRN [place] PAIN LEVEL 1-3 OR FEVER; Start 04/16/19 at 21:30 Heparin Sodium (Porcine) (Heparin (5000 Units/1ml)) 5,000 unit Q12 SC Last administered on 04/21/19at 08:25; Admin Dose 5,000 UNIT; Start 04/17/19 at 09:00 Dextrose (D50w Syringe) 25 ml Q15M PRN IV .DECREASED GLUCOSE; Start 04/16/19 at 21:30 Dextrose (D50w Syringe) 50 ml Q15M PRN IV .DECREASED GLUCOSE; Start 04/16/19 at 21:30 Famotidine (Pepcid Iv) 20 mg Q12 IV Last administered on 04/21/19 08:20; Admin Dose 20 MG; Start 04/17/19 at 09:00 Meropenem/Sodium Chloride 50 ml @ 100 mls/hr Q12 IVPB Last administered on 04/21/19 08:21; Admin Dose 100 MLS/HR; Start 04/17/19 at 21:00 Hydromorphone HCl (Dilaudid) 1.5 mg Q3H PRN IV PAIN Last administered on 04/21/19 13:04; Admin Dose 1.5 MG; Start 04/17/19 at 13:00 Hydralazine HCl (Apresoline) 10 mg Q4H PRN IV ELEVATED BLOOD PRESSURE Last administered on 04/20/19 21:25; Admin Dose 10 MG; Start 04/18/19 at 09:30 Insulin Glargine (Lantus) 20 units DAILY@0800 SC Last administered on 04/21/19 08:29; Admin Dose 20 UNITS; Start 04/20/19 at 08:00 Atenolol (Tenormin) 50 mg DAILY PO Last administered on 04/21/19 08:20; Admin Dose 50 MG; Start 04/19/19 at 10:00 Losartan Potassium (Cozaar) 50 mg DAILY PO Last administered on 04/21/19 09:26; Admin Dose 50 MG; Start 04/19/19 at 10:00 Insulin Aspart (Novolog Insulin Pen) (Adult SC Insulin - Moder... WITH MEALS BEDTIME SC Last administered on 04/20/19 12:43; Admin Dose 2 UNIT; Start 04/19/19 at 18:00 Diagnostic Test (Pha) (Accu-Chek) 1 ea 02 XX ; Start 04/20/19 at 02:00 Sodium Chloride 1,000 ml @ 125 mls/hr Q8H IV Last administered on 04/21/19 06:55; Admin Dose 125 MLS/HR; Start 04/19/19 at 23:00 Acetaminophen (Tylenol Tab) 650 mg Q4H PRN PO MILD PAIN(1-3)OR ELEVATED TEMP Last administered on 04/21/19at 03:15; Admin Dose 650 MG; Start 04/21/19 at 03:00 Potassium Chloride 50 ml @ 50 mls/hr Q1H IVPB Last administered on 04/21/19at 13:39; Admin Dose 50 MLS/HR; Start 04/21/19 at 12:30; Stop 04/21/19 at 15:29 Potassium Phosphate 30 mm/ Sodium Chloride 260 ml @ 65 mls/hr ONCE ONCE IVPB ; Start 04/21/19 at 16:00; Stop 04/21/19 at 19:59 Caspofungin 50 mg/ Sodium Chloride 250 ml @ 250 mls/hr Q24H IVPB ; Start 04/22/19 at 13:00 Vancomycin HCl (Vanco Iv Per Pharmacy) VANCOMYCIN PER PHARMACY PER PROTOCOL XX ; Start 04/21/19 at 12:00 Vancomycin HCl 1.75 gm/Sodium Chloride 500 ml @ 125 mls/hr Q12H IVPB ; Start 04/21/19 at 14:00 AMEE RODRÍGUEZ MD Apr 21, 2019 14:25
--- NOTE | 2019-04-21 15:04 | CONS ---
Assessment/Plan Assessment/Plan Hospital Course (Demo Recall) Patient spiked fever yesterday and also this morning she is awake in no distress WBC today 17.8 neutrophils 74.4 BUN 6 creatinine 0.62 Antimicrobials: Vancomycin meropenem, Cancidas Allergies: Zosyn Physical examination: This is a morbidly obese well-developed middle-aged woman who is alert in no distress. Head atraumatic normocephalic sclera nonicteric vehicle mucosa dry neck is supple chest rise symmetrical breath sounds diminished to bases heart: S1-S2. Abdomen obese soft bowel sounds present. Extremities without cyanosis. Assessment: 1. Sepsis 2. Acute pancreatitis 3. Cholangitis 4. Poorly controlled diabetes 5. Morbid obesity Plan: Clinically stable with ongoing fevers and leukocytosis, concern for pancreatic pseudocyst, GI on case, will repeat cultures and order chest x-ray, a fevers and leukocytosis persist consider repeat CT abdomen Consultation Date/Type/Reason Admit Date/Time Apr 16, 2019 at 20:18 Initial Consult Date 04/17/19 Type of Consult id Date/Time of Note DATE: 04/21/19 TIME: 15:03 Exam/Review of Systems Exam Vitals Vital Signs Date Temp Pulse Resp B/P (MAP) Pulse Ox O2 O2 Flow FiO2 Time Delivery Rate 04/21/19 99.1 82 18 133/71 98 13:35 (91) 04/21/19 Room Air 07:26 04/18/19 2.0 06:00 Intake and Output 04/20/19 04/20/19 04/21/19 1515:00 23:00 07:00 IntakeIntake Total 1850 ml 550 ml 1900 ml BalanceBalance 1850 ml 550 ml 1900 ml Results Result Diagram: 04/21/19 0955 04/21/19 0955 Results 24hrs Laboratory Tests Test 04/20/19 17:06 04/20/19 21:24 04/21/19 05:30 04/21/19 08:28 Bedside Glucose 111 112 111 Urine Color YELLOW Urine Clarity CLEAR Urine pH 6.0 Urine Specific 1.010 [place] Urine Ketones 2+ H Urine Nitrite NEGATIVE Urine Bilirubin NEGATIVE Urine Urobilinogen NEGATIVE Urine Leukocyte NEGATIVE Esterase Urine Hemoglobin NEGATIVE Urine Glucose NEGATIVE Urine Total Protein NEGATIVE Test 04/21/19 09:55 04/21/19 11:35 White Blood Count 17.8 H Red Blood Count 3.71 L Hemoglobin 11.5 L Hematocrit 32.9 L Mean Corpuscular 88.7 Volume Mean Corpuscular 31.0 Hemoglobin Mean Corpuscular 35.0 Hemoglobin Concent Red Cell 14.5 Distribution Width Platelet Count 362 Mean Platelet Volume 9.4 Immature 4.400 H Granulocytes % Neutrophils % 74.4 Lymphocytes % 11.6 L Monocytes % 7.8 Eosinophils % 1.2 Basophils % 0.6 Nucleated Red Blood 0.1 H Cells % Immature 0.790 H Granulocytes # Neutrophils # 13.2 H Lymphocytes # 2.1 Monocytes # 1.4 H Eosinophils # 0.2 Basophils # 0.1 Nucleated Red Blood 0.0 Cells # Sodium Level 137 Potassium Level 2.2 *L Chloride Level 99 Carbon Dioxide Level 26 Anion Gap 12 Blood Urea Nitrogen 6 L Creatinine 0.42 L Est Glomerular > 60 Filtrat Rate mL/min Glucose Level 114 Calcium Level 7.8 L Phosphorus Level 2.4 L Magnesium Level 2.0 Vancomycin Level < 5.0 L Trough Bedside Glucose 117 Medications Medication Current Medications Albuterol/ Ipratropium (Duoneb) 3 ml Q2H RESP THERAPY PRN NEB SHORTNESS OF BREATH; Start 04/16/19 at 21:30 Acetaminophen (Tylenol Supp) 650 mg Q4H PRN [place] PAIN LEVEL 1-3 OR FEVER; Start 04/16/19 at 21:30 Heparin Sodium (Porcine) (Heparin (5000 Units/1ml)) 5,000 unit Q12 SC Last administered on 04/21/19at 08:25; Admin Dose 5,000 UNIT; Start 04/17/19 at 09:00 Dextrose (D50w Syringe) 25 ml Q15M PRN IV .DECREASED GLUCOSE; Start 04/16/19 at 21:30 Dextrose (D50w Syringe) 50 ml Q15M PRN IV .DECREASED GLUCOSE; Start 04/16/19 at 21:30 Famotidine (Pepcid Iv) 20 mg Q12 IV Last administered on 04/21/19at 08:20; Admin Dose 20 MG; Start 04/17/19 at 09:00 Meropenem/Sodium Chloride 50 ml @ 100 mls/hr Q12 IVPB Last administered on 04/21/19at 08:21; Admin Dose 100 MLS/HR; Start 04/17/19 at 21:00 Hydromorphone HCl (Dilaudid) 1.5 mg Q3H PRN IV PAIN Last administered on 04/21/19 13:04; Admin Dose 1.5 MG; Start 04/17/19 at 13:00 Hydralazine HCl (Apresoline) 10 mg Q4H PRN IV ELEVATED BLOOD PRESSURE Last administered on 04/20/19 21:25; Admin Dose 10 MG; Start 04/18/19 at 09:30 Insulin Glargine (Lantus) 20 units DAILY@0800 SC Last administered on 04/21/19 08:29; Admin Dose 20 UNITS; Start 04/20/19 at 08:00 Atenolol (Tenormin) 50 mg DAILY PO Last administered on 04/21/19 08:20; Admin Dose 50 MG; Start 04/19/19 at 10:00 Losartan Potassium (Cozaar) 50 mg DAILY PO Last administered on 04/21/19 09:26; Admin Dose 50 MG; Start 04/19/19 at 10:00 Insulin Aspart (Novolog Insulin Pen) (Adult SC Insulin - Moder... WITH MEALS BEDTIME SC Last administered on 04/20/19 12:43; Admin Dose 2 UNIT; Start 04/19/19 at 18:00 Diagnostic Test (Pha) (Accu-Chek) 1 ea 02 XX ; Start 04/20/19 at 02:00 Sodium Chloride 1,000 ml @ 125 mls/hr Q8H IV Last administered on 04/21/19 06:55; Admin Dose 125 MLS/HR; Start 04/19/19 at 23:00 Acetaminophen (Tylenol Tab) 650 mg Q4H PRN PO MILD PAIN(1-3)OR ELEVATED TEMP Last administered on 04/21/19 03:15; Admin Dose 650 MG; Start 04/21/19 at 03:00 Potassium Chloride 50 ml @ 50 mls/hr Q1H IVPB Last administered on 04/21/19 13:39; Admin Dose 50 MLS/HR; Start 04/21/19 at 12:30; Stop 04/21/19 at 15:29 Potassium Phosphate 30 mm/ Sodium Chloride 260 ml @ 65 mls/hr ONCE ONCE IVPB ; Start 04/21/19 at 16:00; Stop 04/21/19 at 19:59 Caspofungin 50 mg/ Sodium Chloride 250 ml @ 250 mls/hr Q24H IVPB ; Start 04/22/19 at 13:00 Vancomycin HCl (Vanco Iv Per Pharmacy) VANCOMYCIN PER PHARMACY PER PROTOCOL XX ; Start 04/21/19 at 12:00 Vancomycin HCl 1.75 gm/Sodium Chloride 500 ml @ 125 mls/hr Q12H IVPB ; Start 04/21/19 at 14:00 FRANCIS POWERS NP Apr 21, 2019 15:04
[2019-04-21] MEDS ORDERED: POTASSIUM PHOSPHATE 30 MM in SOD CHLORIDE 0.9% 250 ML IVPB ONE (16:00)
[2019-04-21] MEDS: VANCOMYCIN HCL 1.75 GM in SOD CHLORIDE 0.9% 500 ML IVPB SCH (16:03)
[2019-04-21 20:00] VITALS: BP 144/89; PULSE 96; RESP 19
[2019-04-22] MEDS: HYDROmorphONE 2 MG/ML SYG IV PRN ×4 (00:45→23:26)
[2019-04-22] MEDS: VANCOMYCIN HCL 1.75 GM in SOD CHLORIDE 0.9% 500 ML IVPB SCH ×2 (01:34→14:25)
[2019-04-22 02:00] VITALS: BP 142/74; PULSE 90; RESP 18
[2019-04-22] MEDS: ACCUCHECK AT 2AM (Patients on SS coverage) XX SCH (02:00)
[2019-04-22] MEDS: SOD CHLORIDE 0.9% 1,000 ML IV SCH (06:25)
[2019-04-22] MEDS ORDERED: POTASSIUM CHLORIDE (SR) 20 MEQ TAB PO ONE (07:30)
[2019-04-22 08:05] VITALS: BP 130/72; PULSE 62; RESP 18
[2019-04-22] MEDS: ATENOLOL 50 MG TAB PO SCH (09:02)
[2019-04-22] MEDS: LOSARTAN 50 MG TAB PO SCH (09:03)
--- NOTE | 2019-04-22 09:05 | PN ---
Date/Time of Note Date/Time of Note DATE: 04/22/19 TIME: 08:56 Assessment/Plan VTE Prophylaxis Risk score (from Nsg)>0 risk: 2 SCD applied (from Ns): No SCD contraindicated: low risk/ambulating Pharmacological prophylaxis: heparin Lines/Catheters [facility] (from [facility] Mid Line Assessment/Plan Hospital Course Summary Assessment and Plan: Assessment: Severe pancreatitis -Triglycerides within normal limits -IgG4- WNL Elevated LFTs - (improving) Elevated direct hyperbilirubinemia- resolved- pt now with Indirect hyperbilirubinemia - trending down -Concerns for cholangitis/choledocholithiasis -MRCP- A small gallstone is present within the cystic duct remnant. No biliar y dilatation or evidence of choledocholithiasis. -Hepatitis serology for hepatitis B/C is negative -Auto immune ASMA 1:80 - STAR negative - Liver US- Hepatic steatosis. Underlying hepatocellular disease cannot be excluded. Sepsis- ID following -Leukocytosis -Blood cx- no growth -Urine cx- Kasey SpecieS <10,000 DM with hyperglycemia currently on insulin drip Hypertension History of cholecystectomy Hepatomegaly with fatty infiltration. Obese -BMI 38.8 Hypokalemia- recurrent despite replacement Diarrhea Plan: Trend LFTs Clear liquid diet has been started- patient tolerating well ASMA positive 1:80 - IgG WNL- will continue to monitor- currently no plan to treat with steroids given improved LFTs and normal range of IgG. LKM- pending Patient seen in collaboration with Dr. Carr Subjective/Free Text: Course reviewed with nursing staff Patient interviewed and examined All labs, imaging and other results reviewed Pt ambulating well. So far tolerating cl liquid diet without increase abdominal pain, nausea or vomiting. She continues to have some upper abdominal pain with deep palpation, last pain medication was given at midnight. Despite feeling better, WBC are trending up, with T-MAX of 99.1 in the last 24 hours- she remains on antibiotic coverage Blood cx- no growth- 2view CXR- Unremarkable two-view chest x-ray without e vidence for pneumonia. no c/o cough or chills. Patient states she is having diarrhea 1-2 episodes per day. Will check stool studies. PHYSICAL EXAMINATION: GENERAL: Well developed, well nourished, obese,alert & oriented x 3, obese SKIN: No lesions HEAD: Normocephalic, atraumatic, no tenderness. EYES: Pupils equal reactive to light and accommodation, no discharge. EARS/NOSE AND THROAT: Ears normal, nose normal. NECK: Supple, no masses. CHEST: Inspection within normal limits. CARDIOVASCULAR: Heart: Regular rate and rhythm RESPIRATORY: Lungs clear to auscultation GASTROINTESTINAL AND LIVER: Abdomen: Soft, RUQ pain 3/10- with pain medication, LUQ- no pain, non-distended, no hernias, no masses, no organomegaly, no ascites, no guarding, no rebound tenderness, normoactive bowel sounds. Rectal: Deferred. Result Diagram: 04/22/19 0607 04/22/19 0607 Results 24hrs Laboratory Tests Test 04/21/19 09:55 04/21/19 11:35 04/21/19 15:04 04/21/19 17:15 White Blood Count 17.8 H Red Blood Count 3.71 L Hemoglobin 11.5 L Hematocrit 32.9 L Mean Corpuscular 88.7 Volume Mean Corpuscular 31.0 Hemoglobin Mean Corpuscular 35.0 Hemoglobin Concent Red Cell 14.5 Distribution Width Platelet Count 362 Mean Platelet Volume 9.4 Immature 4.400 H Granulocytes % Neutrophils % 74.4 Lymphocytes % 11.6 L Monocytes % 7.8 Eosinophils % 1.2 Basophils % 0.6 Nucleated Red Blood 0.1 H Cells % Immature 0.790 H Granulocytes # Neutrophils # 13.2 H Lymphocytes # 2.1 Monocytes # 1.4 H Eosinophils # 0.2 Basophils # 0.1 Nucleated Red Blood 0.0 Cells # Sodium Level 137 137 Potassium Level 2.2 *L 3.0 L Chloride Level 99 100 Carbon Dioxide Level 26 27 Anion Gap 12 10 Blood Urea Nitrogen 6 L 7 Creatinine 0.42 L 0.43 L Est Glomerular > 60 > 60 Filtrat Rate mL/min Glucose Level 114 106 Calcium Level 7.8 L 8.1 L Phosphorus Level 2.4 L Magnesium Level 2.0 Vancomycin Level < 5.0 L Trough Bedside Glucose 117 108 Test 04/21/19 20:52 04/22/19 01:33 04/22/19 06:07 Bedside Glucose 186 152 White Blood Count 19.4 H Red Blood Count 3.73 L Hemoglobin 11.4 L Hematocrit 32.9 L Mean Corpuscular 88.2 Volume Mean Corpuscular 30.6 Hemoglobin Mean Corpuscular 34.7 Hemoglobin Concent Red Cell 14.1 Distribution Width Platelet Count 382 Mean Platelet Volume 9.6 Immature 6.400 H Granulocytes % Neutrophils % Lymphocytes % Monocytes % Eosinophils % Basophils % Nucleated Red Blood 0.0 Cells % Immature 1.240 H Granulocytes # Neutrophils # Lymphocytes # Monocytes # Eosinophils # Basophils # Nucleated Red Blood Cells # Sodium Level 139 Potassium Level 2.4 *L Chloride Level 98 Carbon Dioxide Level 29 Anion Gap 12 Blood Urea Nitrogen 4 L Creatinine 0.45 Est Glomerular > 60 Filtrat Rate mL/min Glucose Level 133 Calcium Level 8.1 L Phosphorus Level 2.7 Magnesium Level 1.9 Exam/Review of Systems Exam Vitals Vital Signs Date Temp Pulse Resp B/P (MAP) Pulse Ox O2 O2 Flow FiO2 Time Delivery Rate 04/22/19 98.4 62 18 130/72 96 Room Air 08:05 (91) Intake and Output 04/21/19 04/21/19 04/22/19 1414:59 22:59 06:59 IntakeIntake Total 100 ml 1550 ml 600 ml BalanceBalance 100 ml 1550 ml 600 ml Results Results 24hrs Laboratory Tests Test 04/21/19 09:55 04/21/19 11:35 04/21/19 15:04 04/21/19 17:15 White Blood Count 17.8 H Red Blood Count 3.71 L Hemoglobin 11.5 L Hematocrit 32.9 L Mean Corpuscular 88.7 Volume Mean Corpuscular 31.0 Hemoglobin Mean Corpuscular 35.0 Hemoglobin Concent Red Cell 14.5 Distribution Width Platelet Count 362 Mean Platelet Volume 9.4 Immature 4.400 H Granulocytes % Neutrophils % 74.4 Lymphocytes % 11.6 L Monocytes % 7.8 Eosinophils % 1.2 Basophils % 0.6 Nucleated Red Blood 0.1 H Cells % Immature 0.790 H Granulocytes # Neutrophils # 13.2 H Lymphocytes # 2.1 Monocytes # 1.4 H Eosinophils # 0.2 Basophils # 0.1 Nucleated Red Blood 0.0 Cells # Sodium Level 137 137 Potassium Level 2.2 *L 3.0 L Chloride Level 99 100 Carbon Dioxide Level 26 27 Anion Gap 12 10 Blood Urea Nitrogen 6 L 7 Creatinine 0.42 L 0.43 L Est Glomerular > 60 > 60 Filtrat Rate mL/min Glucose Level 114 106 Calcium Level 7.8 L 8.1 L Phosphorus Level 2.4 L Magnesium Level 2.0 Vancomycin Level < 5.0 L Trough Bedside Glucose 117 108 Test 04/21/19 20:52 04/22/19 01:33 04/22/19 06:07 Bedside Glucose 186 152 White Blood Count 19.4 H Red Blood Count 3.73 L Hemoglobin 11.4 L Hematocrit 32.9 L Mean Corpuscular 88.2 Volume Mean Corpuscular 30.6 Hemoglobin Mean Corpuscular 34.7 Hemoglobin Concent Red Cell 14.1 Distribution Width Platelet Count 382 Mean Platelet Volume 9.6 Immature 6.400 H Granulocytes % Neutrophils % Lymphocytes % Monocytes % Eosinophils % Basophils % Nucleated Red Blood 0.0 Cells % Immature 1.240 H Granulocytes # Neutrophils # Lymphocytes # Monocytes # Eosinophils # Basophils # Nucleated Red Blood Cells # Sodium Level 139 Potassium Level 2.4 *L Chloride Level 98 Carbon Dioxide Level 29 Anion Gap 12 Blood Urea Nitrogen 4 L Creatinine 0.45 Est Glomerular > 60 Filtrat Rate mL/min Glucose Level 133 Calcium Level 8.1 L Phosphorus Level 2.7 Magnesium Level 1.9 Medications Medication Current Medications Albuterol/ Ipratropium (Duoneb) 3 ml Q2H RESP THERAPY PRN NEB SHORTNESS OF BREATH; Start 04/16/19 at 21:30 Acetaminophen (Tylenol Supp) 650 mg Q4H PRN [place] PAIN LEVEL 1-3 OR FEVER; Start 04/16/19 at 21:30 Heparin Sodium (Porcine) (Heparin (5000 Units/1ml)) 5,000 unit Q12 SC Last administered on 04/21/19at 20:54; Admin Dose 5,000 UNIT; Start 04/17/19 at 09:00 Dextrose (D50w Syringe) 25 ml Q15M PRN IV .DECREASED GLUCOSE; Start 04/16/19 at 21:30 Dextrose (D50w Syringe) 50 ml Q15M PRN IV .DECREASED GLUCOSE; Start 04/16/19 at 21:30 Famotidine (Pepcid Iv) 20 mg Q12 IV Last administered on 04/21/19at 20:50; Admin Dose 20 MG; Start 04/17/19 at 09:00 Meropenem/Sodium Chloride 50 ml @ 100 mls/hr Q12 IVPB Last administered on 04/21/19at 22:43; Admin Dose 100 MLS/HR; Start 04/17/19 at 21:00 Hydromorphone HCl (Dilaudid) 1.5 mg Q3H PRN IV PAIN Last administered on 04/22/19at 00:45; Admin Dose 1.5 MG; Start 04/17/19 at 13:00 Hydralazine HCl (Apresoline) 10 mg Q4H PRN IV ELEVATED BLOOD PRESSURE Last administered on 04/20/19 21:25; Admin Dose 10 MG; Start 04/18/19 at 09:30 Insulin Glargine (Lantus) 20 units DAILY@0800 SC Last administered on 04/21/19at 08:29; Admin Dose 20 UNITS; Start 04/20/19 at 08:00 Atenolol (Tenormin) 50 mg DAILY PO Last administered on 04/21/19 08:20; Admin Dose 50 MG; Start 04/19/19 at 10:00 Losartan Potassium (Cozaar) 50 mg DAILY PO Last administered on 04/21/19at 09:26; Admin Dose 50 MG; Start 04/19/19 at 10:00 Insulin Aspart (Novolog Insulin Pen) (Adult SC Insulin - Moder... WITH MEALS BEDTIME SC Last administered on 04/21/19at 20:54; Admin Dose 1 UNIT; Start 04/19/19 at 18:00 Diagnostic Test (Pha) (Accu-Chek) XX ; Start 04/20/19 at 02:00 Sodium Chloride 1,000 ml @ 125 mls/hr Q8H IV Last administered on 04/21/19at 06:55; Admin Dose 125 MLS/HR; Start 04/19/19 at 23:00 Acetaminophen (Tylenol Tab) 650 mg Q4H PRN PO MILD PAIN(1-3)OR ELEVATED TEMP Last administered on 04/21/19at 03:15; Admin Dose 650 MG; Start 04/21/19 at 03:00 Caspofungin 50 mg/ Sodium Chloride 250 ml @ 250 mls/hr Q24H IVPB ; Start 04/22/19 at 13:00 Vancomycin HCl (Vanco Iv Per Pharmacy) VANCOMYCIN PER PHARMACY PER PROTOCOL XX ; Start 04/21/19 at 12:00 Vancomycin HCl 1.75 gm/Sodium Chloride 500 ml @ 125 mls/hr Q12H IVPB Last administered on 04/22/19at 01:34; Admin Dose 125 MLS/HR; Start 04/21/19 at 14:00 RIAN BIRD Apr 22, 2019 09:05
[2019-04-22] MEDS: INSULIN GLARGINE [LANTus] (100 UNITS/ML) SYG SC SCH (09:06)
[2019-04-22] MEDS: Insulin NOVOLOG SS MODERATE Algorithm (SS with meals and bedtime) SC SCH ×4 (09:06→20:29)
[2019-04-22] MEDS: HEPARIN 5,000 UNIT/1 ML VIAL SC SCH ×2 (09:07→20:28)
[2019-04-22] MEDS: FAMOTIDINE 20 MG INJ IV SCH ×2 (09:10→20:24)
[2019-04-22] MEDS: MEROPENEM 1 GM/50ML(PMX) 50 ML IVPB SCH ×2 (09:13→20:24)
[2019-04-22] MEDS: CASPOFUNGIN 50 MG in SOD CHLORIDE 0.9% 250 ML IVPB SCH (12:20)
[2019-04-22] MEDS ORDERED: MELATONIN 5 MG TABLET PO PRN (12:30)
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
[2019-04-22] MEDS ORDERED: POTASSIUM CHLORIDE 20 MEQ POWDER FOR ORAL SOLN PO ONE (14:00)
--- NOTE | 2019-04-22 14:17 | PN ---
Date/Time of Note Date/Time of Note DATE: 04/22/19 TIME: 14:14 Assessment/Plan VTE Prophylaxis Risk score (from Ns)>0 risk: 2 SCD applied (from Ns): No SCD contraindicated: other (too big) Pharmacological prophylaxis: heparin Lines/Catheters IV Catheter Type (from [facility]): Mid Line Assessment/Plan Assessment/Plan 53-year-old obese woman with a history of hypertension and a laparoscopic cholecystectomy in 2014 presented with 3 weeks history of right upper quadrant abdominal pain, vomiting and jaundice secondary to pancreatitis and likely choledocholithiasis and possible cholangitis. Note however that the patient has been taking steroid for " allergy" for the past few days. 1. Severe pancreatitis - with likely choledocholithiasis and cholangitis. LFTs including AST, ALT, direct and total bilirubins are significant elevated. -Continue IV fluids -Hep panel negative - Getting dilaudid IV around the clock. - Advancing diet -Autoimmune workup: anti smooth muscle positive. - ID is following and has her on broad spectrum antibiotics. For possible pancreatic pseudocyst? 2. 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 3. Hypertension: - Resume home atenolol and losartan for now. Hold off on HCTZ. Result Diagram: 04/22/19 0607 04/22/19 0607 Results 24hrs Laboratory Tests Test 04/21/19 15:04 04/21/19 17:15 04/21/19 20:52 04/22/19 01:33 Sodium Level 137 Potassium Level 3.0 L Chloride Level 100 Carbon Dioxide Level 27 Anion Gap 10 Blood Urea Nitrogen 7 Creatinine 0.43 L Est Glomerular > 60 Filtrat Rate mL/min Glucose Level 106 Calcium Level 8.1 L Bedside Glucose 108 186 152 Test 04/22/19 06:07 04/22/19 08:56 04/22/19 12:56 White Blood Count 19.4 H Red Blood Count 3.73 L Hemoglobin 11.4 L Hematocrit 32.9 L Mean Corpuscular 88.2 Volume Mean Corpuscular 30.6 Hemoglobin Mean Corpuscular 34.7 Hemoglobin Concent Red Cell 14.1 Distribution Width Platelet Count 382 Mean Platelet Volume 9.6 Immature 6.400 H Granulocytes % Neutrophils % Segmented 67 Neutrophils % (Manual) Band Neutrophils % 7 H (Manual) Lymphocytes % Lymphocytes % 17 (Manual) Monocytes % Monocytes % (Manual) 6 Eosinophils % Basophils % Metamyelocytes % 1 H (manual) Myelocytes % 1 H (Manual) Promyelocytes % 1 H (Manual) Nucleated Red Blood 0.0 Cells % Immature 1.240 H Granulocytes # Neutrophils # Neutrophils # 13.3 H (Manual) Band Neutrophils # 1.3 H Lymphocytes (Manual) 3.2 H Lymphocytes # Monocytes # Monocytes # (Manual) 1.1 H Eosinophils # Basophils # Metamyelocytes # 0.1 H Myelocytes # 0.1 H Promyelocytes # 0.1 H Nucleated Red Blood Cells # Platelet Estimate NORMAL Giant Platelets 1 H Polychromasia 3+ Poikilocytosis 1+ Anisocytosis 1+ Target Cells 1+ Sodium Level 139 Potassium Level 2.4 *L Chloride Level 98 Carbon Dioxide Level 29 Anion Gap 12 Blood Urea Nitrogen 4 L Creatinine 0.45 Est Glomerular > 60 Filtrat Rate mL/min Glucose Level 133 Calcium Level 8.1 L Phosphorus Level 2.7 Magnesium Level 1.9 Total Bilirubin 0.9 Direct Bilirubin 0.00 Indirect Bilirubin 0.9 Aspartate Amino 32 Transf (AST/SGOT) Alanine 120 H Aminotransferase (AL T/SGPT) Alkaline Phosphatase 308 H Total Protein 6.3 Albumin 3.0 L Bedside Glucose 153 147 Subjective 24 Hr Interval Summary Free Text/Dictation Decreasing dilaudid requirements Patient eating a lot of clear liquids. Reports abdominal pain improving. Ambulating. Exam/Review of Systems Exam Vitals Vital Signs Date Temp Pulse Resp B/P (MAP) Pulse Ox O2 O2 Flow FiO2 Time Delivery Rate 04/22/19 98.4 62 18 130/72 96 Room Air 08:05 (91) Intake and Output 04/21/19 04/21/19 04/22/19 1515:00 23:00 07:00 IntakeIntake Total 100 ml 1550 ml 600 ml BalanceBalance 100 ml 1550 ml 600 ml Exam Gen: Obese woman lying in bed, awake and alert. Head: Atraumatic Eyes: Normal Conjunctiva ENT: Normal External Ears, Nose and Mouth. Neck: Full range of motion. No meningismus. Resp: Clear to auscultation bilaterally Cardio: Regular rate and rhythm, no murmurs Abd: Hypoactive bowel sounds. Moderate epigastric tenderness to palpation. Results Results 24hrs Laboratory Tests Test 04/21/19 15:04 04/21/19 17:15 04/21/19 20:52 04/22/19 01:33 Sodium Level 137 Potassium Level 3.0 L Chloride Level 100 Carbon Dioxide Level 27 Anion Gap 10 Blood Urea Nitrogen 7 Creatinine 0.43 L Est Glomerular > 60 Filtrat Rate mL/min Glucose Level 106 Calcium Level 8.1 L Bedside Glucose 108 186 152 Test 04/22/19 06:07 04/22/19 08:56 04/22/19 12:56 White Blood Count 19.4 H Red Blood Count 3.73 L Hemoglobin 11.4 L Hematocrit 32.9 L Mean Corpuscular 88.2 Volume Mean Corpuscular 30.6 Hemoglobin Mean Corpuscular 34.7 Hemoglobin Concent Red Cell 14.1 Distribution Width Platelet Count 382 Mean Platelet Volume 9.6 Immature 6.400 H Granulocytes % Neutrophils % Segmented 67 Neutrophils % (Manual) Band Neutrophils % 7 H (Manual) Lymphocytes % Lymphocytes % 17 (Manual) Monocytes % Monocytes % (Manual) 6 Eosinophils % Basophils % Metamyelocytes % 1 H (manual) Myelocytes % 1 H (Manual) Promyelocytes % 1 H (Manual) Nucleated Red Blood 0.0 Cells % Immature 1.240 H Granulocytes # Neutrophils # Neutrophils # 13.3 H (Manual) Band Neutrophils # 1.3 H Lymphocytes (Manual) 3.2 H Lymphocytes # Monocytes # Monocytes # (Manual) 1.1 H Eosinophils # Basophils # Metamyelocytes # 0.1 H Myelocytes # 0.1 H Promyelocytes # 0.1 H Nucleated Red Blood Cells # Platelet Estimate NORMAL Giant Platelets 1 H Polychromasia 3+ Poikilocytosis 1+ Anisocytosis 1+ Target Cells 1+ Sodium Level 139 Potassium Level 2.4 *L Chloride Level 98 Carbon Dioxide Level 29 Anion Gap 12 Blood Urea Nitrogen 4 L Creatinine 0.45 Est Glomerular > 60 Filtrat Rate mL/min Glucose Level 133 Calcium Level 8.1 L Phosphorus Level 2.7 Magnesium Level 1.9 Total Bilirubin 0.9 Direct Bilirubin 0.00 Indirect Bilirubin 0.9 Aspartate Amino 32 Transf (AST/SGOT) Alanine 120 H Aminotransferase (AL T/SGPT) Alkaline Phosphatase 308 H Total Protein 6.3 Albumin 3.0 L Bedside Glucose 153 147 Medications Medication Current Medications Albuterol/ Ipratropium (Duoneb) 3 ml Q2H RESP THERAPY PRN NEB SHORTNESS OF BREATH; Start 04/16/19 at 21:30 Acetaminophen (Tylenol Supp) 650 mg Q4H PRN [place] PAIN LEVEL 1-3 OR FEVER; Start 04/16/19 at 21:30 Heparin Sodium (Porcine) (Heparin (5000 Units/1ml)) 5,000 unit Q12 SC Last administered on 04/22/19 09:07; Admin Dose 5,000 UNIT; Start 04/17/19 at 09:00 Dextrose (D50w Syringe) 25 ml Q15M PRN IV .DECREASED GLUCOSE; Start 04/16/19 at 21:30 Dextrose (D50w Syringe) 50 ml Q15M PRN IV .DECREASED GLUCOSE; Start 04/16/19 at 21:30 Famotidine (Pepcid Iv) 20 mg Q12 IV Last administered on 04/22/19 09:10; Admin Dose 20 MG; Start 04/17/19 at 09:00 Meropenem/Sodium Chloride 50 ml @ 100 mls/hr Q12 IVPB Last administered on 04/22/19 09:13; Admin Dose 100 MLS/HR; Start 04/17/19 at 21:00 Hydromorphone HCl (Dilaudid) 1.5 mg Q3H PRN IV PAIN Last administered on 04/22/19 12:18; Admin Dose 1.5 MG; Start 04/17/19 at 13:00 Hydralazine HCl (Apresoline) 10 mg Q4H PRN IV ELEVATED BLOOD PRESSURE Last administered on 04/20/19 21:25; Admin Dose 10 MG; Start 04/18/19 at 09:30 Insulin Glargine (Lantus) 20 units DAILY@0800 SC Last administered on 04/22/19 09:06; Admin Dose 20 UNITS; Start 04/20/19 at 08:00 Atenolol (Tenormin) 50 mg DAILY PO Last administered on 04/22/19 09:02; Admin Dose 50 MG; Start 04/19/19 at 10:00 Losartan Potassium (Cozaar) 50 mg DAILY PO Last administered on 04/22/19 09:03; Admin Dose 50 MG; Start 04/19/19 at 10:00 Insulin Aspart (Novolog Insulin Pen) (Adult SC Insulin - Moder... WITH MEALS BEDTIME SC Last administered on 04/22/19 12:59; Admin Dose 2 UNIT; Start 04/19/19 at 18:00 Diagnostic Test (Pha) (Accu-Chek) 1 ea 02 XX ; Start 04/20/19 at 02:00 Acetaminophen (Tylenol Tab) 650 mg Q4H PRN PO MILD PAIN(1-3)OR ELEVATED TEMP Last administered on 04/21/19at 03:15; Admin Dose 650 MG; Start 04/21/19 at 03:00 Caspofungin 50 mg/ Sodium Chloride 250 ml @ 250 mls/hr Q24H IVPB Last administered on 04/22/19at 12:20; Admin Dose 250 MLS/HR; Start 04/22/19 at 13:00 Vancomycin HCl (Vanco Iv Per Pharmacy) VANCOMYCIN PER PHARMACY PER PROTOCOL XX ; Start 04/21/19 at 12:00 Vancomycin HCl 1.75 gm/Sodium Chloride 500 ml @ 125 mls/hr Q12H IVPB Last administered on 04/22/19at 01:34; Admin Dose 125 MLS/HR; Start 04/21/19 at 14:00 Melatonin (Melatonin) 5 mg HS PRN PO INSOMNIA; Start 04/22/19 at 12:30 AMEE RODRÍGUEZ MD Apr 22, 2019 14:17
--- NOTE | 2019-04-22 14:51 | CONS ---
Assessment/Plan Assessment/Plan Hospital Course (Demo Recall) No acute events. Patient is alert looks comfortable has right upper quadrant abdominal pain no fevers overnight. WBC 19.4 bands 7 BUN 4 creatinine 0.45 Stool for C. difficile came back negative Chest x-ray revealed no evidence for pneumonia Antimicrobials: Vancomycin meropenem, Cancidas Allergies: Zosyn Physical examination: This is a morbidly obese well-developed middle-aged woman who is alert in no distress. Head atraumatic normocephalic sclera nonicteric vehicle mucosa dry neck is supple chest rise symmetrical breath sounds diminished to bases heart: S1-S2. Abdomen obese soft bowel sounds present. Extremities without cyanosis. Assessment: 1. S/p sepsis 2. Acute pancreatitis 3. Cholangitis 4. Poorly controlled diabetes 5. Morbid obesity 6. Ongoing leukocytosis Plan: Clinically stable, continue antibiotics, follow GI recommendations, consider repeat CT abdomen Consultation Date/Type/Reason Admit Date/Time Apr 16, 2019 at 20:18 Initial Consult Date 04/17/19 Type of Consult id Date/Time of Note DATE: 04/22/19 TIME: 14:50 Exam/Review of Systems Exam Vitals Vital Signs Date Temp Pulse Resp B/P (MAP) Pulse Ox O2 O2 Flow FiO2 Time Delivery Rate 04/22/19 98.4 62 18 130/72 96 Room Air 08:05 (91) Intake and Output 04/21/19 04/21/19 04/22/19 1515:00 23:00 07:00 IntakeIntake Total 100 ml 1550 ml 600 ml BalanceBalance 100 ml 1550 ml 600 ml Results Result Diagram: 04/22/19 0607 04/22/19 0607 Results 24hrs Laboratory Tests Test 04/21/19 15:04 04/21/19 17:15 04/21/19 20:52 04/22/19 01:33 Sodium Level 137 Potassium Level 3.0 L Chloride Level 100 Carbon Dioxide Level 27 Anion Gap 10 Blood Urea Nitrogen 7 Creatinine 0.43 L Est Glomerular > 60 Filtrat Rate mL/min Glucose Level 106 Calcium Level 8.1 L Bedside Glucose 108 186 152 Test 04/22/19 06:07 04/22/19 08:56 04/22/19 12:56 White Blood Count 19.4 H Red Blood Count 3.73 L Hemoglobin 11.4 L Hematocrit 32.9 L Mean Corpuscular 88.2 Volume Mean Corpuscular 30.6 Hemoglobin Mean Corpuscular 34.7 Hemoglobin Concent Red Cell 14.1 Distribution Width Platelet Count 382 Mean Platelet Volume 9.6 Immature 6.400 H Granulocytes % Neutrophils % Segmented 67 Neutrophils % (Manual) Band Neutrophils % 7 H (Manual) Lymphocytes % Lymphocytes % 17 (Manual) Monocytes % Monocytes % (Manual) 6 Eosinophils % Basophils % Metamyelocytes % 1 H (manual) Myelocytes % 1 H (Manual) Promyelocytes % 1 H (Manual) Nucleated Red Blood 0.0 Cells % Immature 1.240 H Granulocytes # Neutrophils # Neutrophils # 13.3 H (Manual) Band Neutrophils # 1.3 H Lymphocytes (Manual) 3.2 H Lymphocytes # Monocytes # Monocytes # (Manual) 1.1 H Eosinophils # Basophils # Metamyelocytes # 0.1 H Myelocytes # 0.1 H Promyelocytes # 0.1 H Nucleated Red Blood Cells # Platelet Estimate NORMAL Giant Platelets 1 H Polychromasia 3+ Poikilocytosis 1+ Anisocytosis 1+ Target Cells 1+ Sodium Level 139 Potassium Level 2.4 *L Chloride Level 98 Carbon Dioxide Level 29 Anion Gap 12 Blood Urea Nitrogen 4 L Creatinine 0.45 Est Glomerular > 60 Filtrat Rate mL/min Glucose Level 133 Calcium Level 8.1 L Phosphorus Level 2.7 Magnesium Level 1.9 Total Bilirubin 0.9 Direct Bilirubin 0.00 Indirect Bilirubin 0.9 Aspartate Amino 32 Transf (AST/SGOT) Alanine 120 H Aminotransferase (AL T/SGPT) Alkaline Phosphatase 308 H Total Protein 6.3 Albumin 3.0 L Bedside Glucose 153 147 Medications Medication Current Medications Albuterol/ Ipratropium (Duoneb) 3 ml Q2H RESP THERAPY PRN NEB SHORTNESS OF BREATH; Start 04/16/19 at 21:30 Acetaminophen (Tylenol Supp) 650 mg Q4H PRN [place] PAIN LEVEL 1-3 OR FEVER; Start 04/16/19 at 21:30 Heparin Sodium (Porcine) (Heparin (5000 Units/1ml)) 5,000 unit Q12 SC Last administered on 04/22/19at 09:07; Admin Dose 5,000 UNIT; Start 04/17/19 at 09:00 Dextrose (D50w Syringe) 25 ml Q15M PRN IV .DECREASED GLUCOSE; Start 04/16/19 at 21:30 Dextrose (D50w Syringe) 50 ml Q15M PRN IV .DECREASED GLUCOSE; Start 04/16/19 at 21:30 Famotidine (Pepcid Iv) 20 mg Q12 IV Last administered on 04/22/19 09:10; Admin Dose 20 MG; Start 04/17/19 at 09:00 Meropenem/Sodium Chloride 50 ml @ 100 mls/hr Q12 IVPB Last administered on 04/22/19 09:13; Admin Dose 100 MLS/HR; Start 04/17/19 at 21:00 Hydromorphone HCl (Dilaudid) 1.5 mg Q3H PRN IV PAIN Last administered on 04/22/19 12:18; Admin Dose 1.5 MG; Start 04/17/19 at 13:00 Hydralazine HCl (Apresoline) 10 mg Q4H PRN IV ELEVATED BLOOD PRESSURE Last administered on 04/20/19 21:25; Admin Dose 10 MG; Start 04/18/19 at 09:30 Insulin Glargine (Lantus) 20 units DAILY@0800 SC Last administered on 04/22/19 09:06; Admin Dose 20 UNITS; Start 04/20/19 at 08:00 Atenolol (Tenormin) 50 mg DAILY PO Last administered on 04/22/19 09:02; Admin Dose 50 MG; Start 04/19/19 at 10:00 Losartan Potassium (Cozaar) 50 mg DAILY PO Last administered on 04/22/19 09:03; Admin Dose 50 MG; Start 04/19/19 at 10:00 Insulin Aspart (Novolog Insulin Pen) (Adult SC Insulin - Moder... WITH MEALS BEDTIME SC Last administered on 04/22/19 12:59; Admin Dose 2 UNIT; Start 04/19/19 at 18:00 Diagnostic Test (Pha) (Accu-Chek) 1 ea 02 XX ; Start 04/20/19 at 02:00 Acetaminophen (Tylenol Tab) 650 mg Q4H PRN PO MILD PAIN(1-3)OR ELEVATED TEMP Last administered on 04/21/19 03:15; Admin Dose 650 MG; Start 04/21/19 at 03:00 Caspofungin 50 mg/ Sodium Chloride 250 ml @ 250 mls/hr Q24H IVPB Last administered on 6/27/19at 12:20; Admin Dose 250 MLS/HR; Start 04/22/19 at 13:00 Vancomycin HCl (Vanco Iv Per Pharmacy) VANCOMYCIN PER PHARMACY PER PROTOCOL XX ; Start 04/21/19 at 12:00 Vancomycin HCl 1.75 gm/Sodium Chloride 500 ml @ 125 mls/hr Q12H IVPB Last administered on 04/22/19at 14:25; Admin Dose 125 MLS/HR; Start 04/21/19 at 14:00 Melatonin (Melatonin) 5 mg HS PRN PO INSOMNIA; Start 04/22/19 at 12:30 Miscellaneous Information (*Rx Drug Level Order Reminder*) 1 0100 ONCE XX ; Start 04/23/19 at 01:00; Stop 04/23/19 at 01:01 FRANCIS POWERS NP Apr 22, 2019 14:51
[2019-04-22 20:00] VITALS: BP 148/70; PULSE 86; RESP 18
[2019-04-23] MEDS: ACCUCHECK AT 2AM (Patients on SS coverage) XX SCH (02:00)
[2019-04-23 02:13] VITALS: BP 141/78; PULSE 73; RESP 17
[2019-04-23] MEDS: VANCOMYCIN HCL 1.75 GM in SOD CHLORIDE 0.9% 500 ML IVPB SCH ×2 (02:30→15:26)
[2019-04-23 07:25] VITALS: BP 148/78; PULSE 84; RESP 18
[2019-04-23] MEDS: LOSARTAN 50 MG TAB PO SCH (08:06)
[2019-04-23] MEDS: ATENOLOL 50 MG TAB PO SCH (08:07)
[2019-04-23] MEDS: FAMOTIDINE 20 MG INJ IV SCH ×2 (08:07→20:33)
[2019-04-23] MEDS: MEROPENEM 1 GM/50ML(PMX) 50 ML IVPB SCH ×2 (08:08→22:10)
[2019-04-23] MEDS: INSULIN GLARGINE [LANTus] (100 UNITS/ML) SYG SC SCH (08:09)
[2019-04-23] MEDS: Insulin NOVOLOG SS MODERATE Algorithm (SS with meals and bedtime) SC SCH ×4 (08:10→20:21)
[2019-04-23] MEDS: HEPARIN 5,000 UNIT/1 ML VIAL SC SCH ×2 (08:10→20:29)
--- NOTE | 2019-04-23 09:46 | PN ---
Date/Time of Note Date/Time of Note DATE: 04/23/19 TIME: 09:44 Assessment/Plan VTE Prophylaxis Risk score (from Nsg)>0 risk: 2 SCD applied (from Nsg): No SCD contraindicated: low risk/ambulating Pharmacological prophylaxis: heparin Lines/Catheters IV Catheter Type (from Nrsg): Mid Line Assessment/Plan Hospital Course Summary Assessment and Plan: Assessment: Severe pancreatitis -Triglycerides within normal limits -IgG4- WNL Elevated LFTs - (improving) Elevated direct hyperbilirubinemia- resolved- pt now with Indirect hyperbilirubinemia - resolved -Concerns for cholangitis/choledocholithiasis -MRCP- A small gallstone is present within the cystic duct remnant. No biliary dilatation or evidence of choledocholithiasis. -Hepatitis serology for hepatitis B/C is negative -Auto immune ASMA 1:80 - STAR negative - Liver US- Hepatic steatosis. Underlying hepatocellular disease cannot be excluded. Sepsis- ID following- resolved Leukocytosis- persistent -Blood cx- no growth -Urine cx- K[place]y SpecieS <10,000 DM with hyperglycemia currently on insulin drip Hypertension History of cholecystectomy Hepatomegaly with fatty infiltration. Obese -BMI 38.8 Hypokalemia- recurrent despite replacement Diarrhea- resolved -CDIFF - negative -Stool Cx- pending Plan: Advance diet to low fat/diabetic/1800 kesha No evidence of active cholangitis Increased WBC- possible pancreatic pseudocyst- consider repeat CT abd/pelvis with PO/IV contrast Hypokalemia- consider further evaluation- change in medication if no improvement consider nephrology consult ASMA positive 1:80 - IgG WNL- will continue to monitor- currently no plan to tr eat with steroids given improved LFTs and normal range of IgG. LKM- pending No plan for GI intervention Patient seen in collaboration with Dr. Carr Subjective/Free Text: Course reviewed with nursing staff Patient interviewed and examined All labs, imaging and other results reviewed Patient is doing very well, no c/o n/v ambulating well. She denies abdominal pain until pressure is applies then c/o pain 5/10 She has not taken any pain medication at this time- She is afebrile for the past 24 hours. Despite increase in WBC today. ID following - [place]-cultures negative thus far. PHYSICAL EXAMINATION: GENERAL: Well developed, well nourished, obese,alert & oriented x 3, obese SKIN: No lesions HEAD: Normocephalic, atraumatic, no tenderness. EYES: Pupils equal reactive to light and accommodation, no discharge. EARS/NOSE AND THROAT: Ears normal, nose normal. NECK: Supple, no masses. CHEST: Inspection within normal limits. CARDIOVASCULAR: Heart: Regular rate and rhythm RESPIRATORY: Lungs clear to auscultation GASTROINTESTINAL AND LIVER: Abdomen: Soft, RUQ pain 3/10- with pain medication, LUQ- no pain, non-distended, no hernias, no masses, no organomegaly, no ascites, no guarding, no rebound tenderness, normoactive bowel sounds. Rectal: Deferred. Result Diagram: 04/22/19 0607 04/22/19 0607 Results 24hrs Laboratory Tests Test 04/22/19 12:56 04/22/19 17:17 04/22/19 20:25 04/23/19 01:04 Bedside Glucose 147 122 193 Vancomycin Level 13.9 Trough Test 04/23/19 02:10 04/23/19 07:52 Bedside Glucose 113 141 Exam/Review of Systems Exam Vitals Vital Signs Date Temp Pulse Resp B/P (MAP) Pulse Ox O2 O2 Flow FiO2 Time Delivery Rate 04/23/19 98.4 84 18 148/78 100 Room Air 07:25 (101) Intake and Output 04/22/19 04/22/19 04/23/19 1515:00 23:00 07:00 IntakeIntake Total 1910 ml 1150 ml 500 ml BalanceBalance 1910 ml 1150 ml 500 ml Results Results 24hrs Laboratory Tests Test 04/22/19 12:56 04/22/19 17:17 04/22/19 20:25 04/23/19 01:04 Bedside Glucose 147 122 193 Vancomycin Level 13.9 Trough Test 04/23/19 02:10 04/23/19 07:52 Bedside Glucose 113 141 Medications Medication Current Medications Albuterol/ Ipratropium (Duoneb) 3 ml Q2H RESP THERAPY PRN NEB SHORTNESS OF EULA ATH; Start 04/16/19 at 21:30 Acetaminophen (Tylenol Supp) 650 mg Q4H PRN [place] PAIN LEVEL 1-3 OR FEVER; Start 04/16/19 at 21:30 Heparin Sodium (Porcine) (Heparin (5000 Units/1ml)) 5,000 unit Q12 SC Last administered on 04/23/19at 08:10; Admin Dose 5,000 UNIT; Start 04/17/19 at 09:00 Dextrose (D50w Syringe) 25 ml Q15M PRN IV .DECREASED GLUCOSE; Start 04/16/19 at 21:30 Dextrose (D50w Syringe) 50 ml Q15M PRN IV .DECREASED GLUCOSE; Start 04/16/19 at 21:30 Famotidine (Pepcid Iv) 20 mg Q12 IV Last administered on 04/23/19 08:07; Admin Dose 20 MG; Start 04/17/19 at 09:00 Meropenem/Sodium Chloride 50 ml @ 100 mls/hr Q12 IVPB Last administered on 04/23/19 08:08; Admin Dose 100 MLS/HR; Start 04/17/19 at 21:00 Hydromorphone HCl (Dilaudid) 1.5 mg Q3H PRN IV PAIN Last administered on 04/22/19 23:26; Admin Dose 1.5 MG; Start 04/17/19 at 13:00 Hydralazine HCl (Apresoline) 10 mg Q4H PRN IV ELEVATED BLOOD PRESSURE Last administered on 04/20/19 21:25; Admin Dose 10 MG; Start 04/18/19 at 09:30 Insulin Glargine (Lantus) 20 units DAILY@0800 SC Last administered on 04/23/19 08:09; Admin Dose 20 UNITS; Start 04/20/19 at 08:00 Atenolol (Tenormin) 50 mg DAILY PO Last administered on 04/23/19 08:07; Admin Dose 50 MG; Start 04/19/19 at 10:00 Losartan Potassium (Cozaar) 50 mg DAILY PO Last administered on 04/23/19 08:06; Admin Dose 50 MG; Start 04/19/19 at 10:00 Insulin Aspart (Novolog Insulin Pen) (Adult SC Insulin - Moder... WITH MEALS BEDTIME SC Last administered on 04/23/19 08:10; Admin Dose 2 UNIT; Start 04/19/19 at 18:00 Diagnostic Test (Pha) (Accu-Chek) 1 ea 02 XX ; Start 04/20/19 at 02:00 Acetaminophen (Tylenol Tab) 650 mg Q4H PRN PO MILD PAIN(1-3)OR ELEVATED TEMP Last administered on 6/26/19at 03:15; Admin Dose 650 MG; Start 04/21/19 at 03:00 Caspofungin 50 mg/ Sodium Chloride 250 ml @ 250 mls/hr Q24H IVPB Last administered on 04/22/19at 12:20; Admin Dose 250 MLS/HR; Start 04/22/19 at 13:00 Vancomycin HCl (Vanco Iv Per Pharmacy) VANCOMYCIN PER PHARMACY PER PROTOCOL XX ; Start 04/21/19 at 12:00 Vancomycin HCl 1.75 gm/Sodium Chloride 500 ml @ 125 mls/hr Q12H IVPB Last administered on 04/23/19at 02:30; Admin Dose 125 MLS/HR; Start 04/21/19 at 14:00 Melatonin (Melatonin) 5 mg HS PRN PO INSOMNIA; Start 04/22/19 at 12:30 RIAN BIRD Apr 23, 2019 09:46
[2019-04-23] MEDS ORDERED: BARIUM SULF 2% 450 ML BTL (BERRY SMOOTHIE) PO ONE (10:30)
[2019-04-23 11:18] VITALS: Ht 152.4 cm; Wt 95.4 kg
[2019-04-23] MEDS ORDERED: POTASSIUM CHLORIDE 20 MEQ POWDER FOR ORAL SOLN PO ONE (12:00)
[2019-04-23] MEDS ORDERED: MAGNESIUM SULFATE 2 GM/50 ML 50 ML IVPB ONE (12:00)
--- NOTE | 2019-04-23 12:28 | PN ---
Date/Time of Note Date/Time of Note DATE: 04/23/19 TIME: 12:21 Assessment/Plan VTE Prophylaxis Risk score (from Ns)>0 risk: 2 SCD applied (from Ns): No SCD contraindicated: low risk/ambulating Pharmacological prophylaxis: NA/contraindicated Pharm contraindication: low risk/ambulating Lines/Catheters IV Catheter Type (from Rust): Mid Line Assessment/Plan Assessment/Plan 53-year-old obese woman with a history of hypertension and a laparoscopic cholecystectomy in 2014 presented with 3 weeks history of right upper quadrant abdominal pain, vomiting and jaundice secondary to pancreatitis and likely choledocholithiasis and possible cholangitis. Note however that the patient has been taking steroid for " allergy" for the past few days. 1. Severe pancreatitis - with likely choledocholithiasis and cholangitis. LFTs including AST, ALT, direct and total bilirubins are significant elevated. - Stop IV fluids - Hep panel negative - Regular diet - Symptoms resolved. - ID is following and has her on broad spectrum antibiotics for unclear reasons. 2. 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 3. Hypertension: - Resume home atenolol and losartan for now. Hold off on HCTZ. Dispo: Depending on infectious disease. Result Diagram: 04/23/19 0850 04/23/19 0847 Subjective 24 Hr Interval Summary Free Text/Dictation No acute overnight events. No dilaudid since last night. Abdominal pain improved. Exam/Review of Systems Exam Vitals Vital Signs Date Temp Pulse Resp B/P (MAP) Pulse Ox O2 O2 Flow FiO2 Time Delivery Rate 04/23/19 98.4 84 18 148/78 100 Room Air 07:25 (101) Intake and Output 04/22/19 04/22/19 04/23/19 1414:59 22:59 06:59 IntakeIntake Total 1910 ml 1150 ml 500 ml BalanceBalance 1910 ml 1150 ml 500 ml Exam Gen: Morbidly obese woman lying in bed, awake and alert. Head: Atraumatic Eyes: Normal Conjunctiva ENT: Normal External Ears, Nose and Mouth. Neck: Full range of motion. No meningismus. Resp: Clear to auscultation bilaterally Cardio: Regular rate and rhythm, no murmurs Abd: Hypoactive bowel sounds. Moderate epigastric tenderness to palpation. Results Results 24hrs Laboratory Tests Test 04/22/19 12:56 04/22/19 17:17 04/22/19 20:25 04/23/19 01:04 Bedside Glucose 147 122 193 Vancomycin Level 13.9 Trough Test 04/23/19 02:10 04/23/19 07:52 04/23/19 08:47 04/23/19 08:50 Bedside Glucose 113 141 Sodium Level 138 Potassium Level 2.8 *L Chloride Level 99 Carbon Dioxide Level 28 Anion Gap 11 Blood Urea Nitrogen 5 L Creatinine 0.43 L Est Glomerular > 60 Filtrat Rate mL/min Glucose Level 191 Calcium Level 8.0 L Phosphorus Level 3.2 Magnesium Level 1.9 White Blood Count 15.1 #H Red Blood Count 3.57 L Hemoglobin 11.0 L Hematocrit 31.4 L Mean Corpuscular 88.0 Volume Mean Corpuscular 30.8 Hemoglobin Mean Corpuscular 35.0 Hemoglobin Concent Red Cell 14.1 Distribution Width Platelet Count 425 H Mean Platelet Volume 9.9 Immature 4.100 H Granulocytes % Neutrophils % 68.2 Lymphocytes % 15.6 Monocytes % 9.1 Eosinophils % 2.2 Basophils % 0.8 Nucleated Red Blood 0.0 Cells % Immature 0.620 H Granulocytes # Neutrophils # 10.3 H Lymphocytes # 2.4 Monocytes # 1.4 H Eosinophils # 0.3 Basophils # 0.1 Nucleated Red Blood 0.0 Cells # Medications Medication Current Medications Albuterol/ Ipratropium (Duoneb) 3 ml Q2H RESP THERAPY PRN NEB SHORTNESS OF BREATH; Start 04/16/19 at 21:30 Acetaminophen (Tylenol Supp) 650 mg Q4H PRN [place] PAIN LEVEL 1-3 OR FEVER; Start 04/16/19 at 21:30 Heparin Sodium (Porcine) (Heparin (5000 Units/1ml)) 5,000 unit Q12 SC Last administered on 04/23/19at 08:10; Admin Dose 5,000 UNIT; Start 04/17/19 at 09:00 Dextrose (D50w Syringe) 25 ml Q15M PRN IV .DECREASED GLUCOSE; Start 04/16/19 at 21:30 Dextrose (D50w Syringe) 50 ml Q15M PRN IV .DECREASED GLUCOSE; Start 04/16/19 at 21:30 Famotidine (Pepcid Iv) 20 mg Q12 IV Last administered on 04/23/19 08:07; Admin Dose 20 MG; Start 04/17/19 at 09:00 Meropenem/Sodium Chloride 50 ml @ 100 mls/hr Q12 IVPB Last administered on 04/23/19 08:08; Admin Dose 100 MLS/HR; Start 04/17/19 at 21:00 Hydralazine HCl (Apresoline) 10 mg Q4H PRN IV ELEVATED BLOOD PRESSURE Last administered on 04/20/19 21:25; Admin Dose 10 MG; Start 04/18/19 at 09:30 Insulin Glargine (Lantus) 20 units DAILY@0800 SC Last administered on 04/23/19 08:09; Admin Dose 20 UNITS; Start 04/20/19 at 08:00 Atenolol (Tenormin) 50 mg DAILY PO Last administered on 04/23/19 08:07; Admin Dose 50 MG; Start 04/19/19 at 10:00 Losartan Potassium (Cozaar) 50 mg DAILY PO Last administered on 04/23/19 08:06; Admin Dose 50 MG; Start 04/19/19 at 10:00 Insulin Aspart (Novolog Insulin Pen) (Adult SC Insulin - Moder... WITH MEALS BEDTIME SC Last administered on 04/23/19 08:10; Admin Dose 2 UNIT; Start 04/19/19 at 18:00 Diagnostic Test (Pha) (Accu-Chek) 1 XX ; Start 04/20/19 at 02:00 Acetaminophen (Tylenol Tab) 650 mg Q4H PRN PO MILD PAIN(1-3)OR ELEVATED TEMP Last administered on 04/21/19 03:15; Admin Dose 650 MG; Start 04/21/19 at 03:00 Caspofungin 50 mg/ Sodium Chloride 250 ml @ 250 mls/hr Q24H IVPB Last administered on 04/22/19 12:20; Admin Dose 250 MLS/HR; Start 04/22/19 at 13:00 Vancomycin HCl (Vanco Iv Per Pharmacy) VANCOMYCIN PER PHARMACY PER PROTOCOL XX ; Start 04/21/19 at 12:00 Vancomycin HCl 1.75 gm/Sodium Chloride 500 ml @ 125 mls/hr Q12H IVPB Last administered on 04/23/19 02:30; Admin Dose 125 MLS/HR; Start 04/21/19 at 14:00 Melatonin (Melatonin) 5 mg HS PRN PO INSOMNIA; Start 04/22/19 at 12:30 Magnesium Sulfate 50 ml @ 25 mls/hr ONCE ONCE IVPB Last administered on 04/23/19at 11:14; Admin Dose 25 MLS/HR; Start 04/23/19 at 12:00; Stop 04/23/19 at 13:59 Potassium Chloride 50 ml @ 50 mls/hr Q1H IVPB ; Start 04/23/19 at 12:00; Stop 04/23/19 at 14:59 Acetaminophen/ Hydrocodone Bitart ([place] (5/325)) 1 tab Q4H PRN PO MODERATE PAIN LEVEL 4-6; Start 04/23/19 at 12:30; Status UNV AMEE RODRÍGUEZ MD Apr 23, 2019 12:27
[2019-04-23] MEDS: POTASSIUM CHLORIDE 50 ML IVPB SCH ×3 (13:10→14:47)
[2019-04-23] MEDS: HYDROCODONE/APAP (5/325) TAB PO PRN ×2 (13:38→20:32)
[2019-04-23 13:43] VITALS: BP 125/78; PULSE 87; RESP 18
[2019-04-23] MEDS: CASPOFUNGIN 50 MG in SOD CHLORIDE 0.9% 250 ML IVPB SCH (14:06)
--- NOTE | 2019-04-23 14:38 | CONS ---
Assessment/Plan Assessment/Plan Hospital Course (Demo Recall) No events overnight patient is awake looks comfortable no fevers WBC went down to 15.1 no shift BUN 5 creatinine 0.43 Stool for C. difficile came back negative Chest x-ray revealed no evidence for pneumonia Antimicrobials: Vancomycin meropenem, Cancidas Allergies: Zosyn Physical examination: This is a morbidly obese well-developed middle-aged woman who is alert in no distress. Head atraumatic normocephalic sclera nonicteric vehicle mucosa dry neck is supple chest rise symmetrical breath sounds diminished to bases heart: S1-S2. Abdomen obese soft bowel sounds present. Extremities without cyanosis. Assessment: 1. S/p sepsis 2. Acute pancreatitis 3. Cholangitis 4. Poorly controlled diabetes 5. Morbid obesity 6. Ongoing leukocytosis Plan: Clinically stable, continue antibiotics, await for repeat CT abdomen, follow GI recommendations Consultation Date/Type/Reason Admit Date/Time Apr 16, 2019 at 20:18 Initial Consult Date 04/17/19 Type of Consult id Date/Time of Note DATE: 04/23/19 TIME: 14:37 Exam/Review of Systems Exam Vitals Vital Signs Date Temp Pulse Resp B/P (MAP) Pulse Ox O2 O2 Flow FiO2 Time Delivery Rate 04/23/19 98.0 87 18 125/78 100 Room Air 13:43 (94) Intake and Output 04/22/19 04/22/19 04/23/19 1515:00 23:00 07:00 IntakeIntake Total 1910 ml 1150 ml 500 ml BalanceBalance 1910 ml 1150 ml 500 ml Results Result Diagram: 04/23/19 0850 04/23/19 0847 Results 24hrs Laboratory Tests Test 04/22/19 17:17 04/22/19 20:25 04/23/19 01:04 04/23/19 02:10 Bedside Glucose 122 193 113 Vancomycin Level 13.9 Trough Test 04/23/19 07:52 04/23/19 08:47 04/23/19 08:50 04/23/19 12:26 Bedside Glucose 141 154 Sodium Level 138 Potassium Level 2.8 *L Chloride Level 99 Carbon Dioxide Level 28 Anion Gap 11 Blood Urea Nitrogen 5 L Creatinine 0.43 L Est Glomerular > 60 Filtrat Rate mL/min Glucose Level 191 Calcium Level 8.0 L Phosphorus Level 3.2 Magnesium Level 1.9 White Blood Count 15.1 #H Red Blood Count 3.57 L Hemoglobin 11.0 L Hematocrit 31.4 L Mean Corpuscular 88.0 Volume Mean Corpuscular 30.8 Hemoglobin Mean Corpuscular 35.0 Hemoglobin Concent Red Cell 14.1 Distribution Width Platelet Count 425 H Mean Platelet Volume 9.9 Immature 4.100 H Granulocytes % Neutrophils % 68.2 Lymphocytes % 15.6 Monocytes % 9.1 Eosinophils % 2.2 Basophils % 0.8 Nucleated Red Blood 0.0 Cells % Immature 0.620 H Granulocytes # Neutrophils # 10.3 H Lymphocytes # 2.4 Monocytes # 1.4 H Eosinophils # 0.3 Basophils # 0.1 Nucleated Red Blood 0.0 Cells # Medications Medication Current Medications Albuterol/ Ipratropium (Duoneb) 3 ml Q2H RESP THERAPY PRN NEB SHORTNESS OF BREATH; Start 04/16/19 at 21:30 Acetaminophen (Tylenol Supp) 650 mg Q4H PRN [place] PAIN LEVEL 1-3 OR FEVER; Start 04/16/19 at 21:30 Heparin Sodium (Porcine) (Heparin (5000 Units/1ml)) 5,000 unit Q12 SC Last administered on 04/23/19at 08:10; Admin Dose 5,000 UNIT; Start 04/17/19 at 09:00 Dextrose (D50w Syringe) 25 ml Q15M PRN IV .DECREASED GLUCOSE; Start 04/16/19 at 21:30 Dextrose (D50w Syringe) 50 ml Q15M PRN IV .DECREASED GLUCOSE; Start 04/16/19 at 21:30 Famotidine (Pepcid Iv) 20 mg Q12 IV Last administered on 04/23/19at 08:07; Admin Dose 20 MG; Start 04/17/19 at 09:00 Meropenem/Sodium Chloride 50 ml @ 100 mls/hr Q12 IVPB Last administered on 04/23/19 08:08; Admin Dose 100 MLS/HR; Start 04/17/19 at 21:00 Hydralazine HCl (Apresoline) 10 mg Q4H PRN IV ELEVATED BLOOD PRESSURE Last administered on 04/20/19 21:25; Admin Dose 10 MG; Start 04/18/19 at 09:30 Insulin Glargine (Lantus) 20 units DAILY@0800 SC Last administered on 04/23/19 08:09; Admin Dose 20 UNITS; Start 04/20/19 at 08:00 Atenolol (Tenormin) 50 mg DAILY PO Last administered on 04/23/19 08:07; Admin Dose 50 MG; Start 04/19/19 at 10:00 Losartan Potassium (Cozaar) 50 mg DAILY PO Last administered on 04/23/19 08:06; Admin Dose 50 MG; Start 04/19/19 at 10:00 Insulin Aspart (Novolog Insulin Pen) (Adult SC Insulin - Moder... WITH MEALS B EDTIME SC Last administered on 04/23/19 12:34; Admin Dose 2 UNIT; Start 04/19/19 at 18:00 Diagnostic Test (Pha) (Accu-Chek) 1 02 XX ; Start 04/20/19 at 02:00 Acetaminophen (Tylenol Tab) 650 mg Q4H PRN PO MILD PAIN(1-3)OR ELEVATED TEMP Last administered on 04/21/19 03:15; Admin Dose 650 MG; Start 04/21/19 at 03:00 Caspofungin 50 mg/ Sodium Chloride 250 ml @ 250 mls/hr Q24H IVPB Last admini stered on 04/23/19 14:06; Admin Dose 250 MLS/HR; Start 04/22/19 at 13:00 Vancomycin HCl (Vanco Iv Per Pharmacy) VANCOMYCIN PER PHARMACY PER PROTOCOL XX ; Start 04/21/19 at 12:00 Vancomycin HCl 1.75 gm/Sodium Chloride 500 ml @ 125 mls/hr Q12H IVPB Last administered on 04/23/19 02:30; Admin Dose 125 MLS/HR; Start 04/21/19 at 14:00 Melatonin (Melatonin) 5 mg HS PRN PO INSOMNIA; Start 04/22/19 at 12:30 Potassium Chloride 50 ml @ 50 mls/hr Q1H IVPB Last administered on 04/23/19 14:06; Admin Dose 50 MLS/HR; Start 04/23/19 at 12:00; Stop 04/23/19 at 14:59 Acetaminophen/ Hydrocodone Bitart ([place] (5/325)) 1 tab Q4H PRN PO MODERATE PAIN LEVEL 4-6 Last administered on 04/23/19 13:38; Admin Dose 1 TAB; Start 04/23/19 at 12:30 FRANCIS POWERS NP Apr 23, 2019 14:38
[2019-04-23] MEDS ORDERED: BARIUM SULFATE 0.1% 450 ML BTL (VOLUMEN) PO ONE (18:02)
[2019-04-23] MEDS ORDERED: IOHEXOL 100 ML ONE (19:04)
[2019-04-23] MEDS ORDERED: SOD CHLORIDE 0.9% 100 ML ONE (19:04)
[2019-04-23 20:00] VITALS: BP 139/82; PULSE 86; RESP 18
[2019-04-24] MEDS: ACCUCHECK AT 2AM (Patients on SS coverage) XX SCH (01:11)
[2019-04-24 02:27] VITALS: BP 125/77; PULSE 78; RESP 18
[2019-04-24] MEDS: VANCOMYCIN HCL 1.75 GM in SOD CHLORIDE 0.9% 500 ML IVPB SCH ×2 (02:36→14:01)
[2019-04-24] MEDS: HYDROCODONE/APAP (5/325) TAB PO PRN ×2 (02:39→17:10)
[2019-04-24] MEDS ORDERED: POTASSIUM CHLORIDE 20 MEQ POWDER FOR ORAL SOLN PO ONE (08:00)
[2019-04-24 08:16] VITALS: BP 135/74; PULSE 79; RESP 18
[2019-04-24] MEDS: MEROPENEM 1 GM/50ML(PMX) 50 ML IVPB SCH ×2 (08:28→20:46)
--- NOTE | 2019-04-24 08:28 | CONS ---
Assessment/Plan Assessment/Plan Hospital Course (Demo Recall) Alert, feels better, tolerated regular diet, no fevers over night Ct abdomen: Severe pancreatitis with associated ryan pancreatic fluid and fat stranding. Chest x-ray revealed no evidence for pneumonia Antimicrobials: Vancomycin meropenem, Cancidas Allergies: Zosyn Assessment: 1. S/p sepsis 2. Acute pancreatitis 3. Cholangitis 4. Poorly controlled diabetes 5. Morbid obesity 6. Ongoing leukocytosis Plan: Clinically improving, continue antibiotics over night, f/u labs in am Consultation Date/Type/Reason Admit Date/Time Apr 16, 2019 at 20:18 Initial Consult Date 04/17/19 Type of Consult id Date/Time of Note DATE: 04/24/19 TIME: 08:27 Exam/Review of Systems Exam Vitals Vital Signs Date Temp Pulse Resp B/P (MAP) Pulse Ox O2 O2 Flow FiO2 Time Delivery Rate 04/24/19 98.3 79 18 135/74 100 Room Air 08:16 (94) Intake and Output 04/23/19 04/23/19 04/24/19 1515:00 23:00 07:00 IntakeIntake Total 200 ml 850 ml 500 ml BalanceBalance 200 ml 850 ml 500 ml Results Result Diagram: 04/23/19 0850 04/24/19 0445 Results 24hrs Laboratory Tests Test 04/23/19 08:47 04/23/19 08:50 04/23/19 12:26 04/23/19 13:51 Sodium Level 138 137 Potassium Level 2.8 *L 3.8 Chloride Level 99 100 Carbon Dioxide Level 28 29 Anion Gap 11 8 Blood Urea Nitrogen 5 L 6 L Creatinine 0.43 L 0.46 Est Glomerular > 60 > 60 Filtrat Rate mL/min Glucose Level 191 181 Calcium Level 8.0 L 8.2 L Phosphorus Level 3.2 Magnesium Level 1.9 White Blood Count 15.1 #H Red Blood Count 3.57 L Hemoglobin 11.0 L Hematocrit 31.4 L Mean Corpuscular 88.0 Volume Mean Corpuscular 30.8 Hemoglobin Mean Corpuscular 35.0 Hemoglobin Concent Red Cell 14.1 Distribution Width Platelet Count 425 H Mean Platelet Volume 9.9 Immature 4.100 H Granulocytes % Neutrophils % 68.2 Lymphocytes % 15.6 Monocytes % 9.1 Eosinophils % 2.2 Basophils % 0.8 Nucleated Red Blood 0.0 Cells % Immature 0.620 H Granulocytes # Neutrophils # 10.3 H Lymphocytes # 2.4 Monocytes # 1.4 H Eosinophils # 0.3 Basophils # 0.1 Nucleated Red Blood 0.0 Cells # Bedside Glucose 154 Test 04/23/19 17:17 04/23/19 20:20 04/24/19 04:45 04/24/19 08:17 Bedside Glucose 203 143 193 Sodium Level 141 Potassium Level 3.4 L Chloride Level 101 Carbon Dioxide Level 32 H Anion Gap 8 Blood Urea Nitrogen 6 L Creatinine 0.51 Est Glomerular > 60 Filtrat Rate mL/min Glucose Level 221 H Calcium Level 8.2 L Phosphorus Level 3.5 Magnesium Level 2.3 Medications Medication Current Medications Albuterol/ Ipratropium (Duoneb) 3 ml Q2H RESP THERAPY PRN NEB SHORTNESS OF BREATH; Start 04/16/19 at 21:30 Acetaminophen (Tylenol Supp) 650 mg Q4H PRN [place] PAIN LEVEL 1-3 OR FEVER; Start 04/16/19 at 21:30 Heparin Sodium (Porcine) (Heparin (5000 Units/1ml)) 5,000 unit Q12 SC Last administered on 04/23/19at 20:29; Admin Dose 5,000 UNIT; Start 04/17/19 at 09:00 Dextrose (D50w Syringe) 25 ml Q15M PRN IV .DECREASED GLUCOSE; Start 04/16/19 at 21:30 Dextrose (D50w Syringe) 50 ml Q15M PRN IV .DECREASED GLUCOSE; Start 04/16/19 at 21:30 Famotidine (Pepcid Iv) 20 mg Q12 IV Last administered on 04/23/19at 20:33; Admin Dose 20 MG; Start 04/17/19 at 09:00 Meropenem/Sodium Chloride 50 ml @ 100 mls/hr Q12 IVPB Last administered on 04/23/19at 22:10; Admin Dose 100 MLS/HR; Start 04/17/19 at 21:00 Hydralazine HCl (Apresoline) 10 mg Q4H PRN IV ELEVATED BLOOD PRESSURE Last administered on 04/20/19 21:25; Admin Dose 10 MG; Start 04/18/19 at 09:30 Insulin Glargine (Lantus) 20 units DAILY@0800 SC Last administered on 04/23/19at 08:09; Admin Dose 20 UNITS; Start 04/20/19 at 08:00 Atenolol (Tenormin) 50 mg DAILY PO Last administered on 04/23/19 08:07; Admin Dose 50 MG; Start 04/19/19 at 10:00 Losartan Potassium (Cozaar) 50 mg DAILY PO Last administered on 04/23/19 08:06; Admin Dose 50 MG; Start 04/19/19 at 10:00 Insulin Aspart (Novolog Insulin Pen) (Adult SC Insulin - Moder... WITH MEALS BEDTIME SC Last administered on 04/23/19 17:26; Admin Dose 4 UNIT; Start 04/19/19 at 18:00 Diagnostic Test (Pha) (Accu-Chek) XX ; Start 04/20/19 at 02:00 Acetaminophen (Tylenol Tab) 650 mg Q4H PRN PO MILD PAIN(1-3)OR ELEVATED TEMP Last administered on 04/21/19 03:15; Admin Dose 650 MG; Start 04/21/19 at 03:00 Caspofungin 50 mg/ Sodium Chloride 250 ml @ 250 mls/hr Q24H IVPB Last administered on 04/23/19 14:06; Admin Dose 250 MLS/HR; Start 04/22/19 at 13:00 Vancomycin HCl (Vanco Iv Per Pharmacy) VANCOMYCIN PER PHARMACY PER PROTOCOL XX ; Start 04/21/19 at 12:00 Vancomycin HCl 1.75 gm/Sodium Chloride 500 ml @ 125 mls/hr Q12H IVPB Last administered on 04/24/19 02:36; Admin Dose 125 MLS/HR; Start 04/21/19 at 14:00 Melatonin (Melatonin) 5 mg HS PRN PO INSOMNIA; Start 04/22/19 at 12:30 Acetaminophen/ Hydrocodone Bitart ([place] (5/325)) 1 tab Q4H PRN PO MODERATE PAIN LEVEL 4-6 Last administered on 04/24/19 02:39; Admin Dose 1 TAB; Start 04/23/19 at 12:30 FRANCIS POWERS NP Apr 24, 2019 08:28
[2019-04-24] MEDS: LOSARTAN 50 MG TAB PO SCH (08:29)
[2019-04-24] MEDS: ATENOLOL 50 MG TAB PO SCH (08:29)
[2019-04-24] MEDS: FAMOTIDINE 20 MG INJ IV SCH ×2 (08:29→20:46)
[2019-04-24] MEDS: HEPARIN 5,000 UNIT/1 ML VIAL SC SCH ×2 (08:30→20:57)
[2019-04-24] MEDS: INSULIN GLARGINE [LANTus] (100 UNITS/ML) SYG SC SCH (08:31)
[2019-04-24] MEDS: Insulin NOVOLOG SS MODERATE Algorithm (SS with meals and bedtime) SC SCH ×4 (08:31→20:56)
--- NOTE | 2019-04-24 10:27 | PN ---
Date/Time of Note Date/Time of Note DATE: 04/24/19 TIME: 10:24 Assessment/Plan VTE Prophylaxis Risk score (from Ns)>0 risk: 2 SCD applied (from Ns): No SCD contraindicated: low risk/ambulating Pharmacological prophylaxis: NA/contraindicated Pharm contraindication: low risk/ambulating Lines/Catheters [facility]from [facility] Mid [facility] Assessment/Plan Assessment/Plan 53-year-old morbidly obese woman with a history of hypertension and a laparoscopic cholecystectomy in 2014 presented with 3 weeks history of right upper quadrant abdominal pain, vomiting and jaundice secondary to pancreatitis and likely choledocholithiasis and possible cholangitis. Note however that the patient has been taking steroid for " allergy" for the past few days. 1. Severe pancreatitis - resolved. - Stop IV fluids - Regular diet - ID is following and has her on broad spectrum antibiotics for unclear reasons. 2. Hyperglycemia - New diagnosis of diabetes with elevated HgbA1C - Glargine 20u qhs - Will start metformin today. 3. Hypertension: - Cont home atenolol and losartan for now. Hold off on HCTZ. Dispo: Medically clear for discharge from my perspective. Waiting for clearance from infectious disease. Result Diagram: 04/23/19 0850 04/24/19 0445 Subjective 24 Hr Interval Summary Free Text/Dictation No acute overnight events. Required Turner twice last night. This morning pain is minimal. Tolerating regular diet. Wants to go home. Exam/Review of Systems Exam Vitals Vital Signs Date Temp Pulse Resp B/P (MAP) Pulse Ox O2 O2 Flow FiO2 Time Delivery Rate 04/24/19 98.3 79 18 135/74 100 Room Air 08:16 (94) Intake and Output 04/23/19 04/23/19 04/24/19 1515:00 23:00 07:00 IntakeIntake Total 200 ml 850 ml 500 ml BalanceBalance 200 ml 850 ml 500 ml Exam Gen: Morbidly obese woman lying in bed, awake and alert. Head: Atraumatic Eyes: Normal Conjunctiva ENT: Normal External Ears, Nose and Mouth. Neck: Full range of motion. No meningismus. Resp: Clear to auscultation bilaterally Cardio: Regular rate and rhythm, no murmurs Abd: Hypoactive bowel sounds. Nontender to palpation throughout. Results Results 24hrs Laboratory Tests Test 04/23/19 12:26 04/23/19 13:51 04/23/19 17:17 04/23/19 20:20 Bedside Glucose 154 203 143 Sodium Level 137 Potassium Level 3.8 Chloride Level 100 Carbon Dioxide Level 29 Anion Gap 8 Blood Urea Nitrogen 6 L Creatinine 0.46 Est Glomerular > 60 Filtrat Rate mL/min Glucose Level 181 Calcium Level 8.2 L Test 04/24/19 04:45 04/24/19 08:17 Sodium Level 141 Potassium Level 3.4 L Chloride Level 101 Carbon Dioxide Level 32 H Anion Gap 8 Blood Urea Nitrogen 6 L Creatinine 0.51 Est Glomerular > 60 Filtrat Rate mL/min Glucose Level 221 H Calcium Level 8.2 L Phosphorus Level 3.5 Magnesium Level 2.3 Bedside Glucose 193 Medications Medication Current Medications Albuterol/ Ipratropium (Duoneb) 3 ml Q2H RESP THERAPY PRN NEB SHORTNESS OF BREATH; Start 04/16/19 at 21:30 Acetaminophen (Tylenol Supp) 650 mg Q4H PRN [place] PAIN LEVEL 1-3 OR FEVER; Start 04/16/19 at 21:30 Heparin Sodium (Porcine) (Heparin (5000 Units/1ml)) 5,000 unit Q12 SC Last administered on 04/24/19at 08:30; Admin Dose 5,000 UNIT; Start 04/17/19 at 09:00 Dextrose (D50w Syringe) 25 ml Q15M PRN IV .DECREASED GLUCOSE; Start 04/16/19 at 21:30 Dextrose (D50w Syringe) 50 ml Q15M PRN IV .DECREASED GLUCOSE; Start 04/16/19 at 21:30 Famotidine (Pepcid Iv) 20 mg Q12 IV Last administered on 04/24/19at 08:29; Admin Dose 20 MG; Start 04/17/19 at 09:00 Meropenem/Sodium Chloride 50 ml @ 100 mls/hr Q12 IVPB Last administered on 04/24/19at 08:28; Admin Dose 100 MLS/HR; Start 04/17/19 at 21:00 Hydralazine HCl (Apresoline) 10 mg Q4H PRN IV ELEVATED BLOOD PRESSURE Last administered on 04/20/19at 21:25; Admin Dose 10 MG; Start 04/18/19 at 09:30 Insulin Glargine (Lantus) 20 units DAILY@0800 SC Last administered on 04/24/19 08:31; Admin Dose 20 UNITS; Start 04/20/19 at 08:00 Atenolol (Tenormin) 50 mg DAILY PO Last administered on 04/24/19 08:29; Admin Dose 50 MG; Start 04/19/19 at 10:00 Losartan Potassium (Cozaar) 50 mg DAILY PO Last administered on 04/24/19 08:29; Admin Dose 50 MG; Start 04/19/19 at 10:00 Insulin Aspart (Novolog Insulin Pen) (Adult SC Insulin - Moder... WITH MEALS BEDTIME SC Last administered on 04/24/19 08:31; Admin Dose 4 UNIT; Start 04/19/19 at 18:00 Diagnostic Test (Pha) (Accu-Chek) XX ; Start 04/20/19 at 02:00 Acetaminophen (Tylenol Tab) 650 mg Q4H PRN PO MILD PAIN(1-3)OR ELEVATED TEMP Last administered on 04/21/19 03:15; Admin Dose 650 MG; Start 04/21/19 at 03:00 Caspofungin 50 mg/ Sodium Chloride 250 ml @ 250 mls/hr Q24H IVPB Last administered on 04/23/19 14:06; Admin Dose 250 MLS/HR; Start 04/22/19 at 13:00 Vancomycin HCl (Vanco Iv Per Pharmacy) VANCOMYCIN PER PHARMACY PER PROTOCOL XX ; Start 04/21/19 at 12:00 Vancomycin HCl 1.75 gm/Sodium Chloride 500 ml @ 125 mls/hr Q12H IVPB Last administered on 04/24/19 02:36; Admin Dose 125 MLS/HR; Start 04/21/19 at 14:00 Melatonin (Melatonin) 5 mg HS PRN PO INSOMNIA; Start 04/22/19 at 12:30 Acetaminophen/ Hydrocodone Bitart ([place] (5/325)) 1 tab Q4H PRN PO MODERATE PAIN LEVEL 4-6 Last administered on 04/24/19 02:39; Admin Dose 1 TAB; Start 04/23/19 at 12:30 AMEE RODRÍGUEZ MD Apr 24, 2019 10:27
[2019-04-24] MEDS: CASPOFUNGIN 50 MG in SOD CHLORIDE 0.9% 250 ML IVPB SCH (12:27)
[2019-04-24 14:41] VITALS: BP 128/78; PULSE 78; RESP 18
--- NOTE | 2019-04-24 15:11 | PN ---
Date/Time of Note Date/Time of Note DATE: 04/24/19 TIME: 15:01 Assessment/Plan VTE Prophylaxis Risk score (from Nsg)>0 risk: 2 SCD applied (from Ns): No SCD contraindicated: low risk/ambulating Pharmacological prophylaxis: heparin Lines/Catheters IV Catheter Type (from Nrsg): Mid Line Assessment/Plan Assessment/Plan Assessment: Severe pancreatitis -Triglycerides within normal limits -IgG4- WNL Elevated LFTs - recheck CMP and Lipase in am. Elevated direct hyperbilirubinemia- resolved- pt now with Indirect hyperbilirubinemia - resolved -Concerns for cholangitis/choledocholithiasis -MRCP- A small gallstone is present within the cystic duct remnant. No biliary dilatation or evidence of choledocholithiasis. -Hepatitis serology for hepatitis B/C is negative -Auto immune ASMA 1:80 - STAR negative - Liver US- Hepatic steatosis. Underlying hepatocellular disease cannot be excluded. Sepsis- ID following- resolved Leukocytosis- persistent -Blood cx- no growth -Urine cx- Kasey SpecieS <10,000 DM with hyperglycemia currently on insulin drip Hypertension History of cholecystectomy Hepatomegaly with fatty infiltration. Obese -BMI 38.8 Hypokalemia- recurrent despite replacement Diarrhea- resolved -CDIFF - negative -Stool Cx- pending Plan: Continue low fat/diabetic/[address] with severe pancreatitis and extrahepatic biliary dilation, however appears clinically stable. No evidence of active cholangitis Hypokalemia- consider further evaluation- change in medication if no improvement consider nephrology consult ASMA positive 1:80 - IgG WNL- will continue to monitor- currently no plan to treat with steroids given improved LFTs and normal range of IgG. LKM- pending No plan for GI intervention Patient seen in collaboration with Dr. Carr Subjective/Free Text: Course reviewed with nursing staff Patient interviewed and examined All labs, imaging and other results reviewed Patient is doing very well, no c/o n/v ambulating well. She denies abdominal pain. She denies any fevers or chills. She is tolerating her diet. Continue current treatment regimen. PHYSICAL EXAMINATION: GENERAL: Well developed, well nourished, obese,alert & oriented x 3, obese SKIN: No lesions HEAD: Normocephalic, atraumatic, no tenderness. EYES: Pupils equal reactive to light and accommodation, no discharge. EARS/NOSE AND THROAT: Ears normal, nose normal. NECK: Supple, no masses. CHEST: Inspection within normal limits. CARDIOVASCULAR: Heart: Regular rate and rhythm RESPIRATORY: Lungs clear to auscultation GASTROINTESTINAL AND LIVER: Abdomen: Soft, non tender, non-distended, no hernias, no masses, no organomegaly, no ascites, no guarding, no rebound tenderness, normoactive bowel sounds. Rectal: Deferred. Result Diagram: 04/23/19 0850 04/24/19 0445 Results 24hrs Laboratory Tests Test 04/23/19 17:17 04/23/19 20:20 04/24/19 04:45 04/24/19 08:17 Bedside Glucose 203 143 193 Sodium Level 141 Potassium Level 3.4 L Chloride Level 101 Carbon Dioxide Level 32 H Anion Gap 8 Blood Urea Nitrogen 6 L Creatinine 0.51 Est Glomerular > 60 Filtrat Rate mL/min Glucose Level 221 H Calcium Level 8.2 L Phosphorus Level 3.5 Magnesium Level 2.3 Test 04/24/19 12:18 Bedside Glucose 187 CC: TAI CARR MD ; Exam/Review of Systems Exam Vitals Vital Signs Date Temp Pulse Resp B/P (MAP) Pulse Ox O2 O2 Flow FiO2 Time Delivery Rate 04/24/19 98.3 78 18 128/78 94 14:41 (95) 04/24/19 Room Air 08:16 Intake and Output 04/23/19 04/23/19 04/24/19 1515:00 23:00 07:00 IntakeIntake Total 200 ml 850 ml 500 ml BalanceBalance 200 ml 850 ml 500 ml Results Results 24hrs Laboratory Tests Test 04/23/19 17:17 04/23/19 20:20 04/24/19 04:45 04/24/19 08:17 Bedside Glucose 203 143 193 Sodium Level 141 Potassium Level 3.4 L Chloride Level 101 Carbon Dioxide Level 32 H Anion Gap 8 Blood Urea Nitrogen 6 L Creatinine 0.51 Est Glomerular > 60 Filtrat Rate mL/min Glucose Level 221 H Calcium Level 8.2 L Phosphorus Level 3.5 Magnesium Level 2.3 Test 04/24/19 12:18 Bedside Glucose 187 Medications Medication Current Medications Albuterol/ Ipratropium (Duoneb) 3 ml Q2H RESP THERAPY PRN NEB SHORTNESS OF BREATH; Start 04/16/19 at 21:30 Acetaminophen (Tylenol Supp) 650 mg Q4H PRN [place] PAIN LEVEL 1-3 OR FEVER; Start 04/16/19 at 21:30 Heparin Sodium (Porcine) (Heparin (5000 Units/1ml)) 5,000 unit Q12 SC Last administered on 04/24/19 08:30; Admin Dose 5,000 UNIT; Start 04/17/19 at 09:00 Dextrose (D50w Syringe) 25 ml Q15M PRN IV .DECREASED GLUCOSE; Start 04/16/19 at 21:30 Dextrose (D50w Syringe) 50 ml Q15M PRN IV .DECREASED GLUCOSE; Start 04/16/19 at 21:30 Famotidine (Pepcid Iv) 20 mg Q12 IV Last administered on 04/24/19 08:29; Admin Dose 20 MG; Start 04/17/19 at 09:00 Meropenem/Sodium Chloride 50 ml @ 100 mls/hr Q12 IVPB Last administered on 04/24/19 08:28; Admin Dose 100 MLS/HR; Start 04/17/19 at 21:00 Hydralazine HCl (Apresoline) 10 mg Q4H PRN IV ELEVATED BLOOD PRESSURE Last administered on 04/20/19 21:25; Admin Dose 10 MG; Start 04/18/19 at 09:30 Insulin Glargine (Lantus) 20 units DAILY@0800 SC Last administered on 04/24/19 08:31; Admin Dose 20 UNITS; Start 04/20/19 at 08:00 Atenolol (Tenormin) 50 mg DAILY PO Last administered on 04/24/19 08:29; Admin Dose 50 MG; Start 04/19/19 at 10:00 Losartan Potassium (Cozaar) 50 mg DAILY PO Last administered on 04/24/19 08:29; Admin Dose 50 MG; Start 04/19/19 at 10:00 Insulin Aspart (Novolog Insulin Pen) (Adult SC Insulin - Moder... WITH MEALS BEDTIME SC Last administered on 04/24/19 12:29; Admin Dose 4 UNIT; Start 04/19/19 at 18:00 Diagnostic Test (Pha) (Accu-Chek) 1 ea 02 XX ; Start 04/20/19 at 02:00 Acetaminophen (Tylenol Tab) 650 mg Q4H PRN PO MILD PAIN(1-3)OR ELEVATED TEMP Last administered on 04/21/19at 03:15; Admin Dose 650 MG; Start 04/21/19 at 03:00 Caspofungin 50 mg/ Sodium Chloride 250 ml @ 250 mls/hr Q24H IVPB Last administered on 04/24/19at 12:27; Admin Dose 250 MLS/HR; Start 04/22/19 at 13:00 Vancomycin HCl (Vanco Iv Per Pharmacy) VANCOMYCIN PER PHARMACY PER PROTOCOL XX ; Start 04/21/19 at 12:00 Vancomycin HCl 1.75 gm/Sodium Chloride 500 ml @ 125 mls/hr Q12H IVPB Last administered on 04/24/19at 14:01; Admin Dose 125 MLS/HR; Start 04/21/19 at 14:00 Melatonin (Melatonin) 5 mg HS PRN PO INSOMNIA; Start 04/22/19 at 12:30 Acetaminophen/ Hydrocodone Bitart ([place] (5/325)) 1 tab Q4H PRN PO MODERATE PAIN LEVEL 4-6 Last administered on 04/24/19at 02:39; Admin Dose 1 TAB; Start 04/23/19 at 12:30 Metformin HCl (Glucophage) 500 mg BID WITH MEALS PO ; Start 04/24/19 at 18:00 JOHNNY EGAN NP Apr 24, 2019 15:11
[2019-04-24] MEDS: metFORMIN 500 MG TAB PO SCH (17:09)
[2019-04-24 19:56] VITALS: BP 132/75; PULSE 75; RESP 18
[2019-04-25 01:47] VITALS: BP 133/75; PULSE 74; RESP 18
[2019-04-25] MEDS: VANCOMYCIN HCL 1.75 GM in SOD CHLORIDE 0.9% 500 ML IVPB SCH (01:55)
[2019-04-25] MEDS: ACCUCHECK AT 2AM (Patients on SS coverage) XX SCH (02:00)
[2019-04-25 07:57] VITALS: BP 130/71; PULSE 75; RESP 17
[2019-04-25] MEDS: HEPARIN 5,000 UNIT/1 ML VIAL SC SCH ×2 (08:20→20:48)
[2019-04-25] MEDS: Insulin NOVOLOG SS MODERATE Algorithm (SS with meals and bedtime) SC SCH ×4 (08:21→20:47)
[2019-04-25] MEDS: FAMOTIDINE 20 MG INJ IV SCH ×2 (08:22→21:00)
[2019-04-25] MEDS: INSULIN GLARGINE [LANTus] (100 UNITS/ML) SYG SC SCH (08:22)
[2019-04-25] MEDS: MEROPENEM 1 GM/50ML(PMX) 50 ML IVPB SCH (08:22)
[2019-04-25] MEDS: ATENOLOL 50 MG TAB PO SCH (08:23)
[2019-04-25] MEDS: LOSARTAN 50 MG TAB PO SCH (08:23)
[2019-04-25] MEDS: metFORMIN 500 MG TAB PO SCH ×2 (08:23→17:06)
[2019-04-25] MEDS ORDERED: POTASSIUM CHLORIDE (SR) 20 MEQ TAB PO ONE (10:00)
[2019-04-25] MEDS: CASPOFUNGIN 50 MG in SOD CHLORIDE 0.9% 250 ML IVPB SCH (12:23)
--- NOTE | 2019-04-25 13:39 | PN ---
Date/Time of Note Date/Time of Note DATE: 04/25/19 TIME: 13:38 Assessment/Plan VTE Prophylaxis Risk score (from Ns)>0 risk: 2 SCD applied (from Ns): No SCD contraindicated: low risk/ambulating Pharmacological prophylaxis: heparin Lines/Catheters IV [facility] [place] Assessment/Plan Assessment/Plan 53-year-old morbidly obese woman with a history of hypertension and a laparoscopic cholecystectomy in 2014 presented with 3 weeks history of right upper quadrant abdominal pain, vomiting and jaundice secondary to pancreatitis and likely choledocholithiasis and possible cholangitis. Note however that the patient has been taking steroid for " allergy" for the past few days. 1. Severe pancreatitis - resolved. - Regular diet - ID is following and has her on broad spectrum antibiotics 2. Hyperglycemia - New diagnosis of diabetes with elevated HgbA1C - Glargine 20u qhs - Cont home metformin 3. Hypertension: - Cont home atenolol and losartan for now. Hold off on HCTZ. 4. Diarrhea, hypokalemia - Likely due to caspofungin. Dispo: Medically clear for discharge from my perspective. Waiting for clearance from infectious disease. Result Diagram: 04/25/19 1248 04/25/19 0444 Subjective 24 Hr Interval Summary Free Text/Dictation No acute overnight events. No longer requiring norco or any analgesics. Abdominal pain resolved. She does still have occasional loose stools. Exam/Review of Systems Exam Vitals Vital Signs Date Temp Pulse Resp B/P (MAP) Pulse Ox O2 O2 Flow FiO2 Time Delivery Rate 04/25/19 98.3 75 17 130/71 99 07:57 (90) 04/24/19 Room Air 08:16 Intake and Output 04/24/19 04/24/19 04/25/19 1515:00 23:00 07:00 IntakeIntake Total 1020 ml 790 ml 800 ml BalanceBalance 1020 ml 790 ml 800 ml Exam Gen: Morbidly obese woman lying in bed, awake and alert. Head: Atraumatic Eyes: Normal Conjunctiva ENT: Normal External Ears, Nose and Mouth. Neck: Full range of motion. No meningismus. Resp: Clear to auscultation bilaterally Cardio: Regular rate and rhythm, no murmurs Abd: Hypoactive bowel sounds. Nontender to palpation throughout. Results Results 24hrs Laboratory Tests Test 04/24/19 17:01 04/24/19 20:47 04/25/19 01:58 04/25/19 04:44 Bedside Glucose 214 222 H 163 Sodium Level 143 Potassium Level 3.4 L Chloride Level 103 Carbon Dioxide Level 29 Anion Gap 11 Blood Urea Nitrogen 8 Creatinine 0.50 Est Glomerular > 60 Filtrat Rate mL/min Glucose Level 205 Calcium Level 8.3 L Phosphorus Level 4.6 Magnesium Level 2.0 Total Bilirubin 0.4 Direct Bilirubin 0.00 Indirect Bilirubin 0.4 Aspartate Amino 22 Transf (AST/SGOT) Alanine 56 Aminotransferase (AL T/SGPT) Alkaline Phosphatase 216 H Total Protein 5.9 L Albumin 2.8 L Globulin 3.10 Albumin/Globulin 0.90 Ratio Lipase 687 H Test 04/25/19 08:18 04/25/19 12:21 04/25/19 12:48 Bedside Glucose 202 232 H White Blood Count 13.9 H Red Blood Count 3.42 L Hemoglobin 10.5 L Hematocrit 30.4 L Mean Corpuscular 88.9 Volume Mean Corpuscular 30.7 Hemoglobin Mean Corpuscular 34.5 Hemoglobin Concent Red Cell 14.1 Distribution Width Platelet Count 468 H Mean Platelet Volume 9.4 Immature 3.000 H Granulocytes % Neutrophils % 62.9 Lymphocytes % 23.7 Monocytes % 7.4 Eosinophils % 2.3 Basophils % 0.7 Nucleated Red Blood 0.0 Cells % Immature 0.420 H Granulocytes # Neutrophils # 8.7 H Lymphocytes # 3.3 H Monocytes # 1.0 H Eosinophils # 0.3 Basophils # 0.1 Nucleated Red Blood 0.0 Cells # Medications Medication Current Medications Albuterol/ Ipratropium (Duoneb) 3 ml Q2H RESP THERAPY PRN NEB SHORTNESS OF BREATH; Start 04/16/19 at 21:30 Acetaminophen (Tylenol Supp) 650 mg Q4H PRN [place] PAIN LEVEL 1-3 OR FEVER; Start 04/16/19 at 21:30 Heparin Sodium (Porcine) (Heparin (5000 Units/1ml)) 5,000 unit Q12 SC Last administered on 04/25/19at 08:20; Admin Dose 5,000 UNIT; Start 04/17/19 at 09:00 Dextrose (D50w Syringe) 25 ml Q15M PRN IV .DECREASED GLUCOSE; Start 04/16/19 at 21:30 Dextrose (D50w Syringe) 50 ml Q15M PRN IV .DECREASED GLUCOSE; Start 04/16/19 at 21:30 Famotidine (Pepcid Iv) 20 mg Q12 IV Last administered on 04/25/19 08:22; Admin Dose 20 MG; Start 04/17/19 at 09:00 Meropenem/Sodium Chloride 50 ml @ 100 mls/hr Q12 IVPB Last administered on 04/25/19 08:22; Admin Dose 100 MLS/HR; Start 04/17/19 at 21:00 Hydralazine HCl (Apresoline) 10 mg Q4H PRN IV ELEVATED BLOOD PRESSURE Last administered on 04/20/19 21:25; Admin Dose 10 MG; Start 04/18/19 at 09:30 Insulin Glargine (Lantus) 20 units DAILY@0800 SC Last administered on 04/25/19 08:22; Admin Dose 20 UNITS; Start 04/20/19 at 08:00 Atenolol (Tenormin) 50 mg DAILY PO Last administered on 04/25/19 08:23; Admin Dose 50 MG; Start 04/19/19 at 10:00 Losartan Potassium (Cozaar) 50 mg DAILY PO Last administered on 04/25/19 08:23; Admin Dose 50 MG; Start 04/19/19 at 10:00 Insulin Aspart (Novolog Insulin Pen) (Adult SC Insulin - Moder... WITH MEALS BEDTIME SC Last administered on 04/25/19 12:28; Admin Dose 6 UNIT; Start 04/19/19 at 18:00 Diagnostic Test (Pha) (Accu-Chek) XX ; Start 04/20/19 at 02:00 Acetaminophen (Tylenol Tab) 650 mg Q4H PRN PO MILD PAIN(1-3)OR ELEVATED TEMP Last administered on 04/21/19 03:15; Admin Dose 650 MG; Start 04/21/19 at 03:00 Caspofungin 50 mg/ Sodium Chloride 250 ml @ 250 mls/hr Q24H IVPB Last administered on 04/25/19 12:23; Admin Dose 250 MLS/HR; Start 04/22/19 at 13:00 Vancomycin HCl (Vanco Iv Per Pharmacy) VANCOMYCIN PER PHARMACY PER PROTOCOL XX ; Start 6/26/19 at 12:00 Vancomycin HCl 1.75 gm/Sodium Chloride 500 ml @ 125 mls/hr Q12H IVPB Last administered on 04/25/19at 01:55; Admin Dose 125 MLS/HR; Start 04/21/19 at 14:00 Melatonin (Melatonin) 5 mg HS PRN PO INSOMNIA; Start 04/22/19 at 12:30 Acetaminophen/ Hydrocodone Bitart ([place] (5/325)) 1 tab Q4H PRN PO MODERATE PAIN LEVEL 4-6 Last administered on 04/24/19at 17:10; Admin Dose 1 TAB; Start 04/23/19 at 12:30 Metformin HCl (Glucophage) 500 mg BID WITH MEALS PO Last administered on 04/25/19at 08:23; Admin Dose 500 MG; Start 04/24/19 at 18:00 AMEE RODRÍGUEZ MD Apr 25, 2019 13:39
[2019-04-25 14:00] VITALS: BP 141/81; PULSE 74; RESP 18
--- NOTE | 2019-04-25 14:06 | CONS ---
Assessment/Plan Assessment/Plan Hospital Course (Demo Recall) Alert, feels good Ct abdomen: Severe pancreatitis with associated ryan pancreatic fluid and fat stranding. Chest x-ray revealed no evidence for pneumonia Antimicrobials: Vancomycin meropenem, Cancidas Allergies: Zosyn Assessment: 1. S/p sepsis 2. Acute pancreatitis 3. Cholangitis 4. Poorly controlled diabetes 5. Morbid obesity 6. Ongoing leukocytosis Plan: Clinically improving, will dc antibiotics and observe Consultation Date/Type/Reason Admit Date/Time Apr 16, 2019 at 20:18 Initial Consult Date 04/17/19 Type of Consult id Date/Time of Note DATE: 04/25/19 TIME: 14:03 Exam/Review of Systems Exam Vitals Vital Signs Date Temp Pulse Resp B/P (MAP) Pulse Ox O2 O2 Flow FiO2 Time Delivery Rate 04/25/19 98.3 75 17 130/71 99 07:57 (90) 04/24/19 Room Air 08:16 Intake and Output 04/24/19 04/24/19 04/25/19 1515:00 23:00 07:00 IntakeIntake Total 1020 ml 790 ml 800 ml BalanceBalance 1020 ml 790 ml 800 ml Results Result Diagram: 04/25/19 1248 04/25/19 0444 Results 24hrs Laboratory Tests Test 04/24/19 17:01 04/24/19 20:47 04/25/19 01:58 04/25/19 04:44 Bedside Glucose 214 222 H 163 Sodium Level 143 Potassium Level 3.4 L Chloride Level 103 Carbon Dioxide Level 29 Anion Gap 11 Blood Urea Nitrogen 8 Creatinine 0.50 Est Glomerular > 60 Filtrat Rate mL/min Glucose Level 205 Calcium Level 8.3 L Phosphorus Level 4.6 Magnesium Level 2.0 Total Bilirubin 0.4 Direct Bilirubin 0.00 Indirect Bilirubin 0.4 Aspartate Amino 22 Transf (AST/SGOT) Alanine 56 Aminotransferase (AL T/SGPT) Alkaline Phosphatase 216 H Total Protein 5.9 L Albumin 2.8 L Globulin 3.10 Albumin/Globulin 0.90 Ratio Lipase 687 H Test 04/25/19 08:18 04/25/19 12:21 04/25/19 12:48 Bedside Glucose 202 232 H White Blood Count 13.9 H Red Blood Count 3.42 L Hemoglobin 10.5 L Hematocrit 30.4 L Mean Corpuscular 88.9 Volume Mean Corpuscular 30.7 Hemoglobin Mean Corpuscular 34.5 Hemoglobin Concent Red Cell 14.1 Distribution Width Platelet Count 468 H Mean Platelet Volume 9.4 Immature 3.000 H Granulocytes % Neutrophils % 62.9 Lymphocytes % 23.7 Monocytes % 7.4 Eosinophils % 2.3 Basophils % 0.7 Nucleated Red Blood 0.0 Cells % Immature 0.420 H Granulocytes # Neutrophils # 8.7 H Lymphocytes # 3.3 H Monocytes # 1.0 H Eosinophils # 0.3 Basophils # 0.1 Nucleated Red Blood 0.0 Cells # Medications Medication Current Medications Albuterol/ Ipratropium (Duoneb) 3 ml Q2H RESP THERAPY PRN NEB SHORTNESS OF BREATH; Start 04/16/19 at 21:30 Acetaminophen (Tylenol Supp) 650 mg Q4H PRN [place] PAIN LEVEL 1-3 OR FEVER; Start 04/16/19 at 21:30 Heparin Sodium (Porcine) (Heparin (5000 Units/1ml)) 5,000 unit Q12 SC Last administered on 04/25/19 08:20; Admin Dose 5,000 UNIT; Start 04/17/19 at 09:00 Dextrose (D50w Syringe) 25 ml Q15M PRN IV .DECREASED GLUCOSE; Start 04/16/19 at 21:30 Dextrose (D50w Syringe) 50 ml Q15M PRN IV .DECREASED GLUCOSE; Start 04/16/19 at 21:30 Famotidine (Pepcid Iv) 20 mg Q12 IV Last administered on 04/25/19 08:22; Admin Dose 20 MG; Start 04/17/19 at 09:00 Meropenem/Sodium Chloride 50 ml @ 100 mls/hr Q12 IVPB Last administered on 04/25/19 08:22; Admin Dose 100 MLS/HR; Start 04/17/19 at 21:00 Hydralazine HCl (Apresoline) 10 mg Q4H PRN IV ELEVATED BLOOD PRESSURE Last administered on 04/20/19 21:25; Admin Dose 10 MG; Start 04/18/19 at 09:30 Insulin Glargine (Lantus) 20 units DAILY@0800 SC Last administered on 04/25/19 08:22; Admin Dose 20 UNITS; Start 04/20/19 at 08:00 Atenolol (Tenormin) 50 mg DAILY PO Last administered on 04/25/19 08:23; Admin Dose 50 MG; Start 04/19/19 at 10:00 Losartan Potassium (Cozaar) 50 mg DAILY PO Last administered on 04/25/19 08:23; Admin Dose 50 MG; Start 04/19/19 at 10:00 Insulin Aspart (Novolog Insulin Pen) (Adult SC Insulin - Moder... WITH MEALS BEDTIME SC Last administered on 04/25/19 12:28; Admin Dose 6 UNIT; Start 04/19/19 at 18:00 Diagnostic Test (Pha) (Accu-Chek) XX ; Start 04/20/19 at 02:00 Acetaminophen (Tylenol Tab) 650 mg Q4H PRN PO MILD PAIN(1-3)OR ELEVATED TEMP Last administered on 04/21/19 03:15; Admin Dose 650 MG; Start 04/21/19 at 03:00 Caspofungin 50 mg/ Sodium Chloride 250 ml @ 250 mls/hr Q24H IVPB Last administered on 04/25/19 12:23; Admin Dose 250 MLS/HR; Start 04/22/19 at 13:00 Vancomycin HCl (Vanco Iv Per Pharmacy) VANCOMYCIN PER PHARMACY PER PROTOCOL XX ; Start 04/21/19 at 12:00 Vancomycin HCl 1.75 gm/Sodium Chloride 500 ml @ 125 mls/hr Q12H IVPB Last administered on 04/25/19 01:55; Admin Dose 125 MLS/HR; Start 04/21/19 at 14:00 Melatonin (Melatonin) 5 mg HS PRN PO INSOMNIA; Start 04/22/19 at 12:30 Acetaminophen/ Hydrocodone Bitart ([place] (5/325)) 1 tab Q4H PRN PO MODERATE PAIN LEVEL 4-6 Last administered on 04/24/19 17:10; Admin Dose 1 TAB; Start 04/23/19 at 12:30 Metformin HCl (Glucophage) 500 mg BID WITH MEALS PO Last administered on 04/25/19 08:23; Admin Dose 500 MG; Start 04/24/19 at 18:00 FRANCIS POWERS NP Apr 25, 2019 14:06
--- NOTE | 2019-04-25 14:31 | PN ---
Date/Time of Note Date/Time of Note DATE: 04/25/19 TIME: 14:24 Assessment/Plan VTE Prophylaxis Risk score (from Ns)>0 risk: 2 SCD applied (from Ns): No SCD contraindicated: low risk/ambulating Pharmacological prophylaxis: heparin Lines/Catheters IV C[facility]ter Type [facility]from [facility] Saline Lock Assessment/Plan Assessment/Plan Assessment: Severe pancreatitis -Triglycerides within normal limits -IgG4- WNL Elevated LFTs, lipase elevated today - clinically stable Elevated direct hyperbilirubinemia- resolved- pt now with Indirect hyperbilirubinemia - resolved -Concerns for cholangitis/choledocholithiasis -MRCP- A small gallstone is present within the cystic duct remnant. No biliary dilatation or evidence of choledocholithiasis. -Hepatitis serology for hepatitis B/C is negative -Auto immune ASMA 1:80 - STAR negative - Liver US- Hepatic steatosis. Underlying hepatocellular disease cannot be excluded. Sepsis- ID following- resolved Leukocytosis- persistent -Blood cx- no growth -Urine cx- Kasey SpecieS <10,000 DM with hyperglycemia currently on insulin drip Hypertension History of cholecystectomy Hepatomegaly with fatty infiltration. Obese -BMI 38.8 Hypokalemia- recurrent despite replacement Diarrhea- resolved -CDIFF - negative -Stool Cx- coliform Plan: Start imodium BID prn for diarrhea. Continue low fat/diabetic/[address] with severe pancreatitis and extrahepatic biliary dilation, however appears clinically stable. No evidence of active cholangitis Hypokalemia- consider further evaluation- change in medication if no improvement consider nephrology consult ASMA positive 1:80 - IgG WNL- will continue to monitor- currently no plan to treat with steroids given improved LFTs and normal range of IgG. LKM- pending No plan for GI intervention Patient seen in collaboration with Dr. Carr Subjective/Free Text: Course reviewed with nursing staff Patient interviewed and examined All labs, imaging and other results reviewed Patient is doing very well, no c/o n/v Lipase more elevated today though she appears clinically stable. She does complain of frequent diarrhea today. She denies abdominal pain. She denies any fevers or chills. She is tolerating her diet. Will add imodium prn for diarrhea as C-diff previously negative. Continue current treatment regimen. PHYSICAL EXAMINATION: GENERAL: Well developed, well nourished, obese,alert & oriented x 3, obese SKIN: No lesions HEAD: Normocephalic, atraumatic, no tenderness. EYES: Pupils equal reactive to light and accommodation, no discharge. EARS/NOSE AND THROAT: Ears normal, nose normal. NECK: Supple, no masses. CHEST: Inspection within normal limits. CARDIOVASCULAR: Heart: Regular rate and rhythm RESPIRATORY: Lungs clear to auscultation GASTROINTESTINAL AND LIVER: Abdomen: Soft, non tender, non-distended, no hernias, no masses, no organomegaly, no ascites, no guarding, no rebound tenderness, normoactive bowel sounds. Rectal: Deferred. Result Diagram: 04/25/19 1248 04/25/19 0444 Results 24hrs Laboratory Tests Test 04/24/19 17:01 04/24/19 20:47 04/25/19 01:58 04/25/19 04:44 Bedside Glucose 214 222 H 163 Sodium Level 143 Potassium Level 3.4 L Chloride Level 103 Carbon Dioxide Level 29 Anion Gap 11 Blood Urea Nitrogen 8 Creatinine 0.50 Est Glomerular > 60 Filtrat Rate mL/min Glucose Level 205 Calcium Level 8.3 L Phosphorus Level 4.6 Magnesium Level 2.0 Total Bilirubin 0.4 Direct Bilirubin 0.00 Indirect Bilirubin 0.4 Aspartate Amino 22 Transf (AST/SGOT) Alanine 56 Aminotransferase (AL T/SGPT) Alkaline Phosphatase 216 H Total Protein 5.9 L Albumin 2.8 L Globulin 3.10 Albumin/Globulin 0.90 Ratio Lipase 687 H Test 04/25/19 08:18 04/25/19 12:21 04/25/19 12:48 Bedside Glucose 202 232 H White Blood Count 13.9 H Red Blood Count 3.42 L Hemoglobin 10.5 L Hematocrit 30.4 L Mean Corpuscular 88.9 Volume Mean Corpuscular 30.7 Hemoglobin Mean Corpuscular 34.5 Hemoglobin Concent Red Cell 14.1 Distribution Width Platelet Count 468 H Mean Platelet Volume 9.4 Immature 3.000 H Granulocytes % Neutrophils % 62.9 Lymphocytes % 23.7 Monocytes % 7.4 Eosinophils % 2.3 Basophils % 0.7 Nucleated Red Blood 0.0 Cells % Immature 0.420 H Granulocytes # Neutrophils # 8.7 H Lymphocytes # 3.3 H Monocytes # 1.0 H Eosinophils # 0.3 Basophils # 0.1 Nucleated Red Blood 0.0 Cells # CC: TAI CARR MD ; Exam/Review of Systems Exam Vitals Vital Signs Date Temp Pulse Resp B/P (MAP) Pulse Ox O2 O2 Flow FiO2 Time Delivery Rate 04/25/19 98.3 75 17 130/71 99 07:57 (90) 04/24/19 Room Air 08:16 Intake and Output 04/24/19 04/24/19 04/25/19 1515:00 23:00 07:00 IntakeIntake Total 1020 ml 790 ml 800 ml BalanceBalance 1020 ml 790 ml 800 ml Results Results 24hrs Laboratory Tests Test 04/24/19 17:01 04/24/19 20:47 04/25/19 01:58 04/25/19 04:44 Bedside Glucose 214 222 H 163 Sodium Level 143 Potassium Level 3.4 L Chloride Level 103 Carbon Dioxide Level 29 Anion Gap 11 Blood Urea Nitrogen 8 Creatinine 0.50 Est Glomerular > 60 Filtrat Rate mL/min Glucose Level 205 Calcium Level 8.3 L Phosphorus Level 4.6 Magnesium Level 2.0 Total Bilirubin 0.4 Direct Bilirubin 0.00 Indirect Bilirubin 0.4 Aspartate Amino 22 Transf (AST/SGOT) Alanine 56 Aminotransferase (AL T/SGPT) Alkaline Phosphatase 216 H Total Protein 5.9 L Albumin 2.8 L Globulin 3.10 Albumin/Globulin 0.90 Ratio Lipase 687 H Test 04/25/19 08:18 04/25/19 12:21 04/25/19 12:48 Bedside Glucose 202 232 H White Blood Count 13.9 H Red Blood Count 3.42 L Hemoglobin 10.5 L Hematocrit 30.4 L Mean Corpuscular 88.9 Volume Mean Corpuscular 30.7 Hemoglobin Mean Corpuscular 34.5 Hemoglobin Concent Red Cell 14.1 Distribution Width Platelet Count 468 H Mean Platelet Volume 9.4 Immature 3.000 H Granulocytes % Neutrophils % 62.9 Lymphocytes % 23.7 Monocytes % 7.4 Eosinophils % 2.3 Basophils % 0.7 Nucleated Red Blood 0.0 Cells % Immature 0.420 H Granulocytes # Neutrophils # 8.7 H Lymphocytes # 3.3 H Monocytes # 1.0 H Eosinophils # 0.3 Basophils # 0.1 Nucleated Red Blood 0.0 Cells # Medications Medication Current Medications Albuterol/ Ipratropium (Duoneb) 3 ml Q2H RESP THERAPY PRN NEB SHORTNESS OF BREATH; Start 04/16/19 at 21:30 Acetaminophen (Tylenol Supp) 650 mg Q4H PRN [place] PAIN LEVEL 1-3 OR FEVER; Start 04/16/19 at 21:30 Heparin Sodium (Porcine) (Heparin (5000 Units/1ml)) 5,000 unit Q12 SC Last administered on 04/25/19 08:20; Admin Dose 5,000 UNIT; Start 04/17/19 at 09:00 Dextrose (D50w Syringe) 25 ml Q15M PRN IV .DECREASED GLUCOSE; Start 04/16/19 at 21:30 Dextrose (D50w Syringe) 50 ml Q15M PRN IV .DECREASED GLUCOSE; Start 04/16/19 at 21:30 Famotidine (Pepcid Iv) 20 mg Q12 IV Last administered on 04/25/19 08:22; Admin Dose 20 MG; Start 04/17/19 at 09:00 Hydralazine HCl (Apresoline) 10 mg Q4H PRN IV ELEVATED BLOOD PRESSURE Last administered on 04/20/19 21:25; Admin Dose 10 MG; Start 04/18/19 at 09:30 Insulin Glargine (Lantus) 20 units DAILY@0800 SC Last administered on 04/25/19 08:22; Admin Dose 20 UNITS; Start 04/20/19 at 08:00 Atenolol (Tenormin) 50 mg DAILY PO Last administered on 04/25/19 08:23; Admin Dose 50 MG; Start 04/19/19 at 10:00 Losartan Potassium (Cozaar) 50 mg DAILY PO Last administered on 04/25/19 08:23; Admin Dose 50 MG; Start 04/19/19 at 10:00 Insulin Aspart (Novolog Insulin Pen) (Adult SC Insulin - Moder... WITH MEALS BEDTIME SC Last administered on 04/25/19 12:28; Admin Dose 6 UNIT; Start 04/19/19 at 18:00 Diagnostic Test (Pha) (Accu-Chek) 1 ea 02 XX ; Start 04/20/19 at 02:00 Acetaminophen (Tylenol Tab) 650 mg Q4H PRN PO MILD PAIN(1-3)OR ELEVATED TEMP Last administered on 04/21/19at 03:15; Admin Dose 650 MG; Start 04/21/19 at 03:00 Melatonin (Melatonin) 5 mg HS PRN PO INSOMNIA; Start 04/22/19 at 12:30 Acetaminophen/ Hydrocodone Bitart ([place] (5/325)) 1 tab Q4H PRN PO MODERATE PAIN LEVEL 4-6 Last administered on 04/24/19at 17:10; Admin Dose 1 TAB; Start 04/23/19 at 12:30 Metformin HCl (Glucophage) 500 mg BID WITH MEALS PO Last administered on 04/25/19at 08:23; Admin Dose 500 MG; Start 04/24/19 at 18:00 JOHNNY EGAN NP Apr 25, 2019 14:31
[2019-04-25] MEDS ORDERED: LOPERAMIDE 2 MG CAP PO PRN (15:00)
[2019-04-25 20:34] VITALS: BP 152/79; PULSE 81; RESP 18
[2019-04-25] MEDS: ACETAMINOPHEN 325 MG TAB PO PRN (20:36)
[2019-04-25] MEDS: FAMOTIDINE 20 MG TAB PO SCH (22:41)
[2019-04-26 02:06] VITALS: BP 135/71; PULSE 78; RESP 19
[2019-04-26] MEDS: ACCUCHECK AT 2AM (Patients on SS coverage) XX SCH (02:26)
[2019-04-26 07:43] VITALS: BP 131/67; PULSE 79; RESP 17
[2019-04-26] MEDS: ATENOLOL 50 MG TAB PO SCH (08:42)
[2019-04-26] MEDS: metFORMIN 500 MG TAB PO SCH (08:42)
[2019-04-26] MEDS: LOSARTAN 50 MG TAB PO SCH (08:42)
[2019-04-26] MEDS: FAMOTIDINE 20 MG TAB PO SCH (08:43)
[2019-04-26] MEDS: Insulin NOVOLOG SS MODERATE Algorithm (SS with meals and bedtime) SC SCH ×2 (08:44→12:54)
[2019-04-26] MEDS: INSULIN GLARGINE [LANTus] (100 UNITS/ML) SYG SC SCH (08:45)
[2019-04-26] MEDS: HEPARIN 5,000 UNIT/1 ML VIAL SC SCH (08:45)
[2019-04-26 13:45] VITALS: PULSE 71; RESP 18
[2019-04-26 14:12] VITALS: BP 133/77
--- NOTE | 2019-04-26 14:24 | CONS ---
Assessment/Plan Assessment/Plan Hospital Course (Demo Recall) No events, no fevers Ct abdomen: Severe pancreatitis with associated ryan pancreatic fluid and fat stranding. Allergies: Zosyn Physical examination: This is a morbidly obese well-developed middle-aged woman who is alert in no distress. Head atraumatic normocephalic sclera nonicteric neck is supple chest rise symmetrical breath sounds diminished to bases heart: S1-S2. Abdomen obese soft bowel sounds present. Extremities without cyanosis. Assessment: 1. S/p sepsis 2. Acute pancreatitis 3. Cholangitis 4. Poorly controlled diabetes 5. Morbid obesity 6. Resolving leukocytosis Plan: Clinically improving, observe off antibiotics Consultation Date/Type/Reason Admit Date/Time Apr 16, 2019 at 20:18 Initial Consult Date 04/17/19 Type of Consult id Date/Time of Note DATE: 04/26/19 TIME: 14:22 Exam/Review of Systems Exam Vitals Vital Signs Date Temp Pulse Resp B/P (MAP) Pulse Ox O2 O2 Flow FiO2 Time Delivery Rate 04/26/19 133/77 14:12 (95) 04/26/19 98.4 71 18 96 13:45 04/25/19 Room Air 14:00 Intake and Output 04/25/19 04/25/19 04/26/19 1515:00 23:00 07:00 IntakeIntake Total 250 ml 240 ml BalanceBalance 250 ml 240 ml Results Result Diagram: 04/26/19 0428 04/26/19 0428 Results 24hrs Laboratory Tests Test 04/25/19 17:03 04/25/19 20:22 04/26/19 02:25 04/26/19 04:28 Bedside Glucose 139 242 H 218 White Blood Count 13.6 H Red Blood Count 3.64 L Hemoglobin 11.1 L Hematocrit 32.2 L Mean Corpuscular 88.5 Volume Mean Corpuscular 30.5 Hemoglobin Mean Corpuscular 34.5 Hemoglobin Concent Red Cell Distribution 13.9 Width Platelet Count 474 H Mean Platelet Volume 9.4 Immature Granulocytes 2.200 H % Neutrophils % 59.6 Lymphocytes % 28.7 Monocytes % 6.5 Eosinophils % 2.4 Basophils % 0.6 Nucleated Red Blood 0.0 Cells % Immature Granulocytes 0.300 H # Neutrophils # 8.1 H Lymphocytes # 3.9 H Monocytes # 0.9 Eosinophils # 0.3 Basophils # 0.1 Nucleated Red Blood 0.0 Cells # Sodium Level 141 Potassium Level 3.6 Chloride Level 102 Carbon Dioxide Level 29 Anion Gap 10 Blood Urea Nitrogen 7 Creatinine 0.52 Est Glomerular Filtrat > 60 Rate mL/min Glucose Level 203 Calcium Level 8.7 Phosphorus Level 4.8 Magnesium Level 2.0 Test 04/26/19 08:41 04/26/19 12:51 Bedside Glucose 208 156 Medications Medication Current Medications Albuterol/ Ipratropium (Duoneb) 3 ml Q2H RESP THERAPY PRN NEB SHORTNESS OF BREATH; Start 04/16/19 at 21:30 Acetaminophen (Tylenol Supp) 650 mg Q4H PRN [place] PAIN LEVEL 1-3 OR FEVER; Start 04/16/19 at 21:30 Heparin Sodium (Porcine) (Heparin (5000 Units/1ml)) 5,000 unit Q12 SC Last administered on 04/26/19 08:45; Admin Dose 5,000 UNIT; Start 04/17/19 at 09:00 Dextrose (D50w Syringe) 25 ml Q15M PRN IV .DECREASED GLUCOSE; Start 04/16/19 at 21:30 Dextrose (D50w Syringe) 50 ml Q15M PRN IV .DECREASED GLUCOSE; Start 04/16/19 at 21:30 Hydralazine HCl (Apresoline) 10 mg Q4H PRN IV ELEVATED BLOOD PRESSURE Last administered on 04/20/19at 21:25; Admin Dose 10 MG; Start 04/18/19 at 09:30 Insulin Glargine (Lantus) 20 units DAILY@0800 SC Last administered on 04/26/19 08:45; Admin Dose 20 UNITS; Start 04/20/19 at 08:00 Atenolol (Tenormin) 50 mg DAILY PO Last administered on 04/26/19 08:42; Admin Dose 50 MG; Start 04/19/19 at 10:00 Losartan Potassium (Cozaar) 50 mg DAILY PO Last administered on 04/26/19 08:42; Admin Dose 50 MG; Start 04/19/19 at 10:00 Insulin Aspart (Novolog Insulin Pen) (Adult SC Insulin - Moder... WITH MEALS BEDTIME SC Last administered on 04/26/19at 12:54; Admin Dose 2 UNIT; Start 04/19/19 at 18:00 Diagnostic Test (Pha) (Accu-Chek) 1 ea 02 XX Last administered on 04/26/19 02:26; Admin Dose 1 EA; Start 04/20/19 at 02:00 Acetaminophen (Tylenol Tab) 650 mg Q4H PRN PO MILD PAIN(1-3)OR ELEVATED TEMP Last administered on 04/25/19at 20:36; Admin Dose 650 MG; Start 04/21/19 at 03:00 Melatonin (Melatonin) 5 mg HS PRN PO INSOMNIA; Start 04/22/19 at 12:30 Acetaminophen/ Hydrocodone Bitart ([place] (5/325)) 1 tab Q4H PRN PO MODERATE PAIN LEVEL 4-6 Last administered on 04/24/19at 17:10; Admin Dose 1 TAB; Start 04/23/19 at 12:30 Metformin HCl (Glucophage) 500 mg BID WITH MEALS PO Last administered on at 08:42; Admin Dose 500 MG; Start 04/24/19 at 18:00 Loperamide HCl (Imodium Cap) 2 mg BID PRN PO DIARRHEA; Start 04/25/19 at 15:00 Famotidine (Pepcid) 20 mg BID PO Last administered on 04/26/19at 08:43; Admin Dose 20 MG; Start 04/25/19 at 22:00 FRANCIS POWERS NP Apr 26, 2019 14:24
--- NOTE | 2019-04-26 16:15 | PDOCDIS ---
Discharge Instructions CONDITION [id number] Patient Condition: [id number] Stable HOME CARE INSTRUCTIONS: [id number] Diet Instructions: [id number] Low Fat /Cholesterol ACTIVITY: [id number] Activity Restrictions: [id number] Slowly Increase Activity Rest between Activity Avoid heavy lifting FOLLOW UP/APPOINTMENTS Follow-up Plan Please take your medication as prescribed, see your doctor in clinic in the next 1 week. BRYAN ADAIR Apr 26, 2019 16:15
[2019-04-26] MEDS ORDERED: METF-480 PO (16:17)
--- NOTE | 2019-04-26 16:28 | DS ---
Date/Time of Note Date/Time of Note DATE: 04/26/19 TIME: 16:21 Discharge Summary Admission/Discharge Info Admit Date/Time Apr 16, 2019 at 20:18 Discharge Date/Time Discharge Diagnosis 1. Severe pancreatitis -along with elevated LFTs, resolved now, admitted withl likely choledocholithiasis and cholangitis 2. Sepsis: Secondary to above resolved now 3. Hyperglycemia-A1c was 8.8 on admission, new diagnosis of diabetes sugars improved now on insulin drip. Patient came in with a sugar of 600, mild anion gap elevation and mild low CO2, likely secondary to mild DKA, has recovered well since that time. Again patient had no known prior history of diabetes before this admission. 4. Hypertension Patient Condition: Stable Hx of Present Illness 53-year-old female with a history of hypertension, allergy and laparoscopic cholecystectomy in 2014 who presented to the ER complaining of abdominal pain. Pain is been going on for the past 3 weeks or so. She also reported nonbloody n onbilious vomiting and jaundice. Denied shortness of breath, chest pain, but reported fever/chills. Patient actually so Dr. week ago for her " for allergy" and was started on oral steroid. She said her allergy is usually related to skin rash. She said she did not tell the doctor about her abdominal pain at that time. She did however had blood tests and is awaiting the results. When she presented to the ER, she was found to have a WBC of 22,000, abnormal LFTs with AST and ALT in the 800s and 900s respectively. Alk phos around 800, total bilirubin 7.8 with direct bilirubin of 6.4. Lipase around 20,000. Glucose almost 600 with no DKA. Lactic dehydrogenase almost 1600. CT abdomen/pelvis shows the followin. Severe pancreatitis with interval enlargement of the pancreatic gland and extensive peripancreatic fat stranding, with stranding extending into the proximal mesentery. 2. Hepatomegaly with fatty infiltration. 3. Postoperative changes from prior cholecystectomy with the extrahepatic common bile duct within normal limits status post cholecystectomy Hospital Course Patient was admitted and made n.p.o. after being found with severe pancreatitis. She was also found with elevated blood sugars and her A1c was 8.8. No prior history of diabetes but she was diagnosed with this year. She was given IV fluids, pain control medications, and her pancreatitis slowly improved. Her LFTs were also elevated and she had MRCP performed with no acute findings. Her LFTs eventually trended down to normal range. She was seen by infectious disease and GI team during this hospital stay. Eventually her lipase trended down and her pain symptoms improved where she was able to be started on a diet which he tolerated. Repeat CT with severe pancreatitis and extrahepatic biliary dilation, however appears clinically stable. She was able to ambulate although she did need a cane prior to discharge, she was able to tolerate diet and vital signs are stable as well. She will be discharged home today improved condition. See below for full list of discharge medications. Home Meds Active Scripts Metformin* (Glucophage*) 850 Mg Tablet, 850 MG PO WITH BREAKFAST DINNE, #60 TAB 2 Refills Prov:BRYAN ADAIR 04/26/19 Sucralfate* (Carafate*) 1 Gm Tab, 1 GM PO QID, #20 TAB Prov:MANASA ROMEO 07/07/17 Atenolol* (Atenolol*) 50 Mg Tablet, 50 MG PO DAILY for 30 Days, #30 TAB Prov:MANASA ROMEO 12/10/16 Losartan Potassium* (Losartan Potassium*) 50 Mg Tablet, 50 MG PO DAILY for 30 Days, #30 TAB Prov:MANASA ROMEO 12/10/16 Reported Medications Cholecalciferol (Vitamin D3) (VITAMIN D-3) 2,000 Unit Capsule, 2000 UNIT PO DAILY for 90 Days, #90 TAKE 1 CAPSULE BY MOUTH EVERY DAY 04/16/19 Ibuprofen* (Ibuprofen*) 600 Mg Tablet, 600 MG PO Q8H PRN for PAIN LEVEL 6-10 TAKE 1 TABLET BY ORAL ROUTE EVERY 8 HOURS WITH FOOD NEEDED FOR PAIN. 04/16/19 Hydrochlorothiazide* (Hydrochlorothiazide*) 25 Mg Tab, 25 MG PO DAILY, TAB 04/24/15 Omeprazole* (Omeprazole*) 20 Mg Capsule.dr, 20 MG PO DAILY, CAP 04/24/15 Discontinued Scripts Hydrocodone/Acetaminophen ([facility] [facility] 10-325 Tablet) 1 Each Tablet, 1 TAB PO Q6H PRN for PAIN, #20 TAB Prov:MANASA ROMEO 07/07/17 Follow-up Plan Please take your medication as prescribed, see your doctor in clinic in the next 1 week. Primary Care Provider [facility] Time spent on discharge: > 30 minutes Pending Labs Laboratory Tests Test 04/25/19 17:03 04/25/19 20:22 04/26/19 02:25 04/26/19 04:28 Bedside 139 242 218 Glucose mg/dL (70-220) mg/dL (70-220) mg/dL (70-220) White Blood 13.6 Count 10^3/ul (4.8-1 0.8) Red Blood 3.64 Count 10^6/ul (4.20- 5.40) Hemoglobin 11.1 g/dl (12.0-16. 0) Hematocrit 32.2 % (37.0-47.0) Mean 88.5 Corpuscular fl (82.0-101.0 Volume ) Mean 30.5 Corpuscular pg (29.0-33.0) Hemoglobin Mean 34.5 Corpuscular g/dl (32.0-37. Hemoglobin Conc 0) ent Red Cell 13.9 Distribution % (11.5-14.5) Width Platelet Count 474 10^3/UL (140-4 15) Mean Platelet 9.4 Volume fl (7.4-10.4) Immature 2.200 Granulocytes % % (0.001-0.429 ) Neutrophils % 59.6 % (39.0-77.0) Lymphocytes % 28.7 % (15.0-51.0) Monocytes % 6.5 % (0.0-11.0) Eosinophils % 2.4 % (0.0-7.0) Basophils % 0.6 % (0.0-2.0) Nucleated Red 0.0 Blood Cells % /100WBC (0.0-0 .0) Immature 0.300 Granulocytes # 10^3/ul (0.0-0 .031) Neutrophils # 8.1 10^3/ul (1.6-7 .5) Lymphocytes # 3.9 10^3/ul (0.8-2 .9) Monocytes # 0.9 10^3/ul (0.3-0 .9) Eosinophils # 0.3 10^3/ul (0.0-0 .5) Basophils # 0.1 10^3/ul (0.0-0 .1) Nucleated Red 0.0 Blood Cells # 10^3/ul (0.0-0 .0) Sodium Level 141 mmol/L (135-14 4) Potassium 3.6 Level mmol/L (3.5-5. 1) Chloride Level 102 mmol/L (97-110 ) Carbon Dioxide 29 Level mmol/L (21-31) Anion Gap 10 (5-13) Blood Urea 7 mg/dl (7-20) Nitrogen Creatinine 0.52 mg/dl (0.44-1. 00) Est Glomerular > 60 Filtrat mL/min (>60) Rate mL/min Glucose Level 203 mg/dl (70-220) Calcium Level 8.7 mg/dl (8.4-10. 2) Phosphorus 4.8 Level mg/dl (2.5-4.9 ) Magnesium 2.0 Level mg/dl (1.7-2.5 ) Test 04/26/19 08:41 04/26/19 12:51 Bedside 208 156 Glucose mg/dL (70-220) mg/dL (70-220) BRYAN ADAIR Apr 26, 2019 16:28
== END 2019-04-26 16:56 | disposition home or self-care (01) | DRG 871 ==
LOC: E/R 17:17 → ICU 20:18 → 5EC 04-19 15:27
PROVIDERS: ADMIT Internal Medicine; ATTEND Hospitalist
DX: A41.9 Sepsis, unspecified organism (principal); K85.90 Acute pancreatitis without necrosis or infection, unspecified; E11.10 Type 2 diabetes mellitus with ketoacidosis without coma; K83.09 Other cholangitis; R65.20 Severe sepsis without septic shock; R16.0 Hepatomegaly, not elsewhere classified; K76.0 Fatty (change of) liver, not elsewhere classified; E87.6 Hypokalemia; I10 Essential (primary) hypertension; K83.8 Other specified diseases of biliary tract; E66.01 Morbid (severe) obesity due to excess calories; Z79.4 Long term (current) use of insulin; Z98.51 Tubal ligation status; Z90.49 Acquired absence of other specified parts of digestive tract
CPT/HCPCS: 36415; 71045; 71046; 74176; 74177; 74181; 76705; 80048; 80053; 80061; 80076; 80202; 81003; 82787; 82962; 83036; 83605; 83615; 83690; 83735; 84100; 84443; 85025; 85610; 85730; 86038; 86255; 86376; 86704; 86706; 86709; 86803; 87045; 87075; 87081; 87086; 87340; 96372; 96374; 96375; 97164; J0360; J1170; J1644; J1815; J2185; J2270; J2405; J3370; J3475; J3480; J7030; J7040; J7050; Q9967